=== PATIENT | male | born 1970 | race Caucasian/White ===

== ENCOUNTER 2020-12-11 22:57 | Emergency (ER) | payer SELFPAY ==
[2020-12-11 23:42] LABS: Protime INR 0.92
[2020-12-11 23:43] LABS: Basophils % 0.8 % (0-1.3); Hematocrit 48.6 % (39.6-49.0); Lymphocytes % 40.4 % (15.3-44.8); MPV 8.5 fL (7.6-11.3); RBC Red Blood Cell Count 4.94 M/uL (4.33-5.43)
[2020-12-12 00:16] LABS: Urine Blood Negative (Negative); Urine Glucose Negative (Negative); Urine Protein Negative (Negative); Urine Specific Gravity <=1.005 (1.005-1.030); Urine pH 5.5 (5.0-7.0)
[2020-12-12] MEDS ORDERED: MORPHINE 2 MG/ML SYR ONE (00:30)
[2020-12-12] MEDS ORDERED: ONDANSETRON 4 MG/2 ML VIAL ONE (00:30)
[2020-12-12 00:31] LABS: ALT/SGPT 33 U/L (12-78); AST/SGOT 21 U/L (15-37); Alkaline Phosphatase 87 U/L (45-117); BUN Blood Urea Nitrogen 8 mg/dL (7-18); Bicarbonate 25 mmol/L (21-32); Bilirubin Direct 0.1 mg/dL (0-0.2); Bilirubin Total 0.4 mg/dL (0.2-1.0); Glucose Level 98 mg/dL (74-106); Magnesium 2.1 mg/dL (1.8-2.4); NT PRO-BNP 80 pg/mL (<125); Protein, Total 7.8 g/dL (6.4-8.2); Sodium Level 146 mmol/L (136-145); Troponin (Emerg Dept Use Only) < 0.02 ng/mL (0.0-0.045)
[2020-12-12 01:07] LABS: Barbiturates NEGATIVE (NEGATIVE); Benzodiazepines NEGATIVE (NEGATIVE); Cocaine NEGATIVE (NEGATIVE); METHAMPHETAM NEGATIVE (NEGATIVE); Methadone NEGATIVE (NEGATIVE); Opiates NEGATIVE (NEGATIVE); Phencyclidine NEGATIVE (NEGATIVE); THC Cannibis NEGATIVE (NEGATIVE)
[2020-12-12] MEDS ORDERED: ASPIRIN 81 MG CHEWABLE TABLET ONE (01:43)
--- NOTE | 2020-12-12 02:03 | ER ---
Nurse's Notes [facility] Name: Ubaldo Waldron Age: 50 yrs Sex: Male : 1970 Arrival Date: 12/11/2020 Time: 23:07 Bed 15 Private MD: Diagnosis: Chest pain, unspecified;Essential (primary) hypertension Presentation: 12/11 23:08 Chief complaint: Patient states: cp that started around 1930 sharp stabbing now kc4 radiating pain. Coronavirus screen: Vaccine status: Patient reports receiving the 2nd dose of the covid vaccine. Date August 02, 2020 Patient reports receiving the 1st dose of the Covid vaccine. Date July 08, 2020 Client denies travel out of the [place] in the last 14 days. At this time, the client does not indicate any symptoms associated with coronavirus-19. 23:08 Method Of Arrival: EMS: [facility] kc4 23:57 Ebola Screen: Patient negative for fever greater than or equal to 101.5 degrees kc4 Fahrenheit, and additional compatible Ebola Virus Disease symptoms Patient denies exposure to infectious person. Patient denies travel to an Ebola-affected area in the 21 days before illness onset. No symptoms or risks identified at this time. Initial Sepsis Screen: Does the patient meet any 2 criteria? Does the patient have a suspected source of infection? No. Patient's initial sepsis screen is negative. Risk Assessment: Do you want to hurt yourself or someone else? Patient reports no desire to harm self or others. Onset of symptoms was December 12, 2020. 23:57 Acuity: FRANCESCO 3 kc4 Triage Assessment: 23:12 General: Appears in no apparent distress. slender, Behavior is calm, cooperative, kc4 appropriate for age, Smells of alcohol. 23:12 Pain: Denies pain. Complains of pain in chest Pain currently is 0 out of 10 on a pain kc4 scale. at worst was 7 out of 10 on a pain scale. level that patient reports is acceptable is 2 out of 10 on a pain scale. Quality of pain is described as sharp, stabbing, Pain began suddenly, Is lasting a few seconds. Alleviated by medications, Aggravated by Noted to be Also complains of no other associated symptoms. EENT: No deficits noted. Neuro: No deficits noted. Cardiovascular: Reports chest pain, Denies chest pain, fatigue, Heart tones S1 Capillary refill < 3 seconds Pulses are all present. Rhythm is regular Chest pain. Respiratory: No deficits noted. GI: No deficits noted. : No deficits noted. Derm: No deficits noted. Musculoskeletal: No deficits noted. Historical: - Allergies: 23:12 NKA; kc4 23:12 NKDA; kc4 - Home Meds: 23:12 None [Active]; kc4 - PMHx: 23:12 Hypertensive disorder; Congestive heart failure; kc4 - Immunization history:: Adult Immunizations not up to date, Last tetanus immunization: < 5 years ago Pneumococcal vaccine is not up to date, Flu vaccine is not up to date. Hepatitis A vaccine is not up to date Hepatitis B vaccine is not up to date. - Social history:: Smoking status: Patient reports the use of cigarette tobacco products, smokes one-half pack cigarettes per day, smokes two packs cigarettes per day. Patient uses alcohol, claims drinking about a 6 pack/day. caffeine, Patient/guardian denies using street drugs, IV drugs, over the counter diet medications. - Family history:: not pertinent. - Code Status:: Full code. Screenin/03 01:27 Abuse screen: Denies threats or abuse. Nutritional screening: No deficits noted. kc4 Difficulty chewing/swallowing? No. Tuberculosis screening: No symptoms or risk factors identified. Never had TB. Possible symptoms: None Risk factors: None. Fall Risk None identified. No fall in past 12 months (0 pts). No secondary diagnosis (0 pts). IV access (20 points). Ambulatory Aid- None/Bed Rest/Nurse Assist (0 pts). Gait- Normal/Bed Rest/Wheelchair (0 pts) Mental Status- Oriented to own ability (0 pts). Total Lopez Fall Scale indicates No Risk (0-24 pts). Assessment: 12/11 23:21 Pain: Denies pain. kc4 12/12 01:26 Also complains of no other symptoms. Reassessment: Patient appears in no apparent kc4 distress at this time. Patient and/or family updated on plan of care and expected duration. Pain level reassessed. Patient is alert, oriented x 3, equal unlabored respirations, skin warm/dry/pink. Patient denies pain at this time. Patient states feeling better. General: Appears in no apparent distress. slender, Behavior is calm, cooperative, appropriate for age, Smells of alcohol. Pain: Denies pain. Neuro: No deficits noted. Cardiovascular: No deficits noted. Respiratory: No deficits noted. GI: No deficits noted. : No deficits noted. EENT: No deficits noted. Derm: No deficits noted. Musculoskeletal: No deficits noted. Vital Signs: 12/11 23:12 BP 171 / 91; Pulse 68; Resp 18; Temp 98.7; Pulse Ox 99% on R/A; Pain 0/10; kc4 23:57 BP 171 / 97; Pulse 68; Resp 18; Temp 98.8; Pulse Ox 99% on R/A; Weight 52.16 kg; Height kc4 5 ft. 4 in. (162.56 cm); Pain 0/10; 12/12 01:29 BP 163 / 90; Pulse 60; Resp 18; Temp 98.8; Pulse Ox 95% on R/A; Pain 0/10; kc4 02:10 BP 169 / 90; Pulse 68; Resp 18; Temp 98.8; Pulse Ox 99% on R/A; Pain 0/10; kc4 12/11 23:57 Body Mass Index 19.74 (52.16 kg, 162.56 cm) kc4 Mony Coma Score: 01:27 Eye Response: spontaneous(4). Verbal Response: oriented(5). Motor Response: obeys kc4 commands(6). Total: 15. ED Course: 12/11 23:07 Patient arrived in ED. kc4 23:11 Charles Wright MD is Attending Physician. mh7 23:12 Arm band placed on right wrist. kc4 23:45 XRAY Chest (1 view) In Process Unspecified. EDMS 23:57 Kriss Jason is Primary Nurse. kc4 23:57 Troponin (emerg Dept Use Only) Sent. bs2 23:57 NT PRO-BNP Sent. bs2 23:57 Magnesium Sent. bs2 23:57 LFT's Sent. bs2 23:57 CBC with Diff Sent. bs2 23:57 Basic Metabolic Panel Sent. bs2 23:58 Liver (Hepatic) Function Sent. bs2 23:58 Basic Metabolic Panel Sent. bs2 23:58 Magnesium Sent. bs2 12/12 00:01 Triage completed. kc4 00:18 UDS Sent. bs2 01:23 Notified ED physician of a critical lab result(s). D-dimer of 641 Dr Wright notified. bb 01:27 Patient has correct armband on for positive identification. Placed in gown. Bed in low kc4 position. Call light in reach. Side rails up X 1. color television console monitor on. Pulse ox on. NIBP on. 01:27 No provider procedures requiring assistance completed. Inserted. kc4 01:29 Patient maintains SpO2 saturation greater than 95% on room air. kc4 02:02 Claus Rico MD is Referral Physician. mh7 02:10 IV discontinued, bleeding controlled, No redness/swelling at site. Pressure dressing kc4 applied. Administered Medications: 00:17 Drug: Zofran (Ondansetron) 4 mg Route: IVP; Site: right antecubital; bs2 02:14 Follow up: Response: No adverse reaction kc4 00:18 Drug: morphine 2 mg Route: IVP; Site: right antecubital; bs2 02:14 Follow up: Response: No adverse reaction kc4 01:19 CANCELLED (wrong orderr): Aspirin Chewable Tablet 324 mg PO once; 81 mg tablets x 4 mh7 Outcome: 02:12 AMA AMA form signed kc4 02:12 Condition: stable 02:13 Instructed on seeking medical advice if s/s worsen kc4 02:14 Patient left the ED. kc4 Signatures: Dispatcher [employer] EDNela Amador RN RN bb Holmes, Maurice, MD MD 7 Glo Garcia RN RN bs2 Kriss Jason kc4
--- NOTE | 2020-12-12 02:03 | EDPHYS ---
Physician Documentation [facility] Name: Ubaldo Waldron Age: 50 yrs Sex: Male : 1970 Arrival Date: 12/11/2020 Time: 23:07 Bed 15 Private MD: ED Physician Charles Wright HPI: 12/11 23:26 This 50 yrs old Male presents to ER via EMS with complaints of Chest Pain. mh7 23:26 The patient or guardian reports chest pain that is located primarily in the anterior mh7 chest wall, left. Onset: today, at 19:30. The pain radiates to the left arm. Associated signs and symptoms: Pertinent positives: nausea, shortness of breath, Pertinent negatives: abdominal pain, cough, diaphoresis, dizziness, headache, lower extremity pain, lower extremity swelling, lightheadedness, near syncope, palpitations, recent travel, syncope, vomiting. The chest pain is described as a pressure. Duration: The patient or guardian reports multiple episodes, that are intermittent, that wax and wane. Modifying factors: The symptoms are alleviated by nothing. the symptoms are aggravated by nothing. Severity of pain: At its worst the pain was moderate today, in the emergency department the pain has improved moderately. Historical: - Allergies: 23:12 NKA; kc4 23:12 NKDA; kc4 - Home Meds: 23:12 None [Active]; kc4 - PMHx: 23:12 Hypertensive disorder; Congestive heart failure; kc4 - Immunization history:: Adult Immunizations not up to date, Last tetanus immunization: < 5 years ago Pneumococcal vaccine is not up to date, Flu vaccine is not up to date. Hepatitis A vaccine is not up to date Hepatitis B vaccine is not up to date. - Social history:: Smoking status: Patient reports the use of cigarette tobacco products, smokes one-half pack cigarettes per day, smokes two packs cigarettes per day. Patient uses alcohol, claims drinking about a 6 pack/day. caffeine, Patient/guardian denies using street drugs, IV drugs, over the counter diet medications. - Family history:: not pertinent. - Code Status:: Full code. ROS: 23:26 Constitutional: Negative for fever, chills, and weight loss, Eyes: Negative for injury, mh7 pain, redness, and discharge, ENT: Negative for injury, pain, and discharge, Neck: Negative for injury, pain, and swelling, Back: Negative for injury and pain, : Negative for injury, bleeding, discharge, and swelling, MS/Extremity: Negative for injury and deformity, Skin: Negative for injury, rash, and discoloration, Neuro: Negative for headache, weakness, numbness, tingling, and seizure, Psych: Negative for depression, anxiety, suicide ideation, homicidal ideation, and hallucinations, Allergy/Immunology: Negative for hives, rash, and allergies, Endocrine: Negative for neck swelling, polydipsia, polyuria, polyphagia, and marked weight changes, Hematologic/Lymphatic: Negative for swollen nodes, abnormal bleeding, and unusual bruising. Exam: 23:26 Constitutional: This is a well developed, well nourished patient who is awake, alert, mh7 and in no acute distress. Head/Face: Normocephalic, atraumatic. Eyes: Pupils equal round and reactive to light, extra-ocular motions intact. Lids and lashes normal. Conjunctiva and sclera are non-icteric and not injected. Cornea within normal limits. Periorbital areas with no swelling, redness, or edema. Neck: Trachea midline, no thyromegaly or masses palpated, and no cervical lymphadenopathy. Supple, full range of motion without nuchal rigidity, or vertebral point tenderness. No Meningismus. Chest/axilla: Normal chest wall appearance and motion. Nontender with no deformity. No lesions are appreciated. Cardiovascular: Regular rate and rhythm with a normal S1 and S2. No gallops, murmurs, or rubs. Normal PMI, no JVD. No pulse deficits. Respiratory: Lungs have equal breath sounds bilaterally, clear to auscultation and percussion. No rales, rhonchi or wheezes noted. No increased work of breathing, no retractions or nasal flaring. Abdomen/GI: Soft, non-tender, with normal bowel sounds. No distension or tympany. No guarding or rebound. No evidence of tenderness throughout. Back: No spinal tenderness. No costovertebral tenderness. Full range of motion. Skin: Warm, dry with normal turgor. Normal color with no rashes, no lesions, and no evidence of cellulitis. MS/ Extremity: Pulses equal, no cyanosis. Neurovascular intact. Full, normal range of motion. Neuro: Awake and alert, GCS 15, oriented to person, place, time, and situation. Cranial nerves II-XII grossly intact. Motor strength 5/5 in all extremities. Sensory grossly intact. Cerebellar exam normal. Normal gait. Psych: Awake, alert, with orientation to person, place and time. Behavior, mood, and affect are within normal limits. Vital Signs: 23:12 BP 171 / 91; Pulse 68; Resp 18; Temp 98.7; Pulse Ox 99% on R/A; Pain 0/10; kc4 23:57 BP 171 / 97; Pulse 68; Resp 18; Temp 98.8; Pulse Ox 99% on R/A; Weight 52.16 kg; Height kc4 5 ft. 4 in. (162.56 cm); Pain 0/10; 12/12 01:29 BP 163 / 90; Pulse 60; Resp 18; Temp 98.8; Pulse Ox 95% on R/A; Pain 0/10; kc4 02:10 BP 169 / 90; Pulse 68; Resp 18; Temp 98.8; Pulse Ox 99% on R/A; Pain 0/10; kc4 12/11 23:57 Body Mass Index 19.74 (52.16 kg, 162.56 cm) kc4 [place] Coma Score: 01:27 Eye Response: spontaneous(4). Verbal Response: oriented(5). Motor Response: obeys kc4 commands(6). Total: 15. MDM: 02:00 Differential diagnosis: acute myocardial infarction, acute pericarditis, anxiety, mh7 coronary artery disease chest wall pain, congestive heart failure costochondritis, myocarditis, pericarditis, pleurisy, pneumonia, pneumothorax, pulmonary embolus, stable angina, unstable angina. HEART Score: History: Moderately Suspicious (1), ECG: Normal (0), Age: > 45 and < 65 years (1), Risk Factors: 1 or 2 risk factors (1), [Hypertension] Troponin: < or = 1 x Normal Limit (0), Total Score = 3. The patient was not given aspirin in the Emergency Department. Patient reports taking aspirin within the past 24 hours. Data reviewed: vital signs, nurses notes, EMS record, lab test result(s), cardiac enzymes, CBC, electrolytes, urinalysis, urine drug screen, EKG, radiologic studies, plain films. Data interpreted: Pulse oximetry: on room air is 95 %. Interpretation: normal. Counseling: I had a detailed discussion with the patient and/or guardian regarding: the historical points, exam findings, and any diagnostic results supporting the discharge/admit diagnosis, the presence of at least one elevated blood pressure reading (>120/80) during this emergency department visit, lab results, the need for further work-up and treatment in the hospital. Response to treatment: the patient's symptoms have resolved after treatment, the patient's blood pressure is in an acceptable range, mental status has returned to baseline, the patient no longer shows bradycardia, the patient is not short of breath, the patient is not tachycardic, the patient's pain is gone, the patient's temperature has normalized. Refusal of service: The patient/guardian displays adequate decision making capability and despite a detailed discussion of alternatives, benefits, risks, and consequences refuses: Admission to the hospital for further work-up and treatment, CT Scan. 02:03 Patient medically screened. [facility] 12/11 23:12 Order name: Basic Metabolic Panel [facility] 12/11 23:12 Order name: CBC with Diff [facility] 12/11 23:12 Order name: LFT's [facility] 12/11 23:12 Order name: Magnesium [facility] 12/11 23:12 Order name: NT PRO-BNP; Complete Time: 00:40 [facility] 12/11 23:12 Order name: PT-INR; Complete Time: 23:55 [facility] 12/11 23:12 Order name: Troponin (emerg Dept Use Only); Complete Time: 00:40 [facility] 12/11 23:12 Order name: UDS; Complete Time: 01:08 [facility] 12/11 23:12 Order name: Basic Metabolic Panel; Complete Time: 00:40 [facility] 12/11 23:12 Order name: CBC with Automated Diff; Complete Time: 23:55 [facility]DAK 12/11 23:12 Order name: Liver (Hepatic) Function; Complete Time: 00:40 EDMS 12/11 23:12 Order name: Magnesium; Complete Time: 00:40 EDMS 12/12 00:16 Order name: Urine Dipstick-Ancillary; Complete Time: 00:40 EDMS 12/12 00:40 Order name: D-Dimer; Complete Time: 01:24 [facility] 12/11 23:12 Order name: XRAY Chest (1 view) [facility] 12/11 23:12 Order name: EKG; Complete Time: 23:13 [facility] 12/11 23:12 Order name: Cardiac monitoring; Complete Time: 23:57 [facility] 12/11 23:12 Order name: EKG - Nurse/Tech; Complete Time: 23:57 [facility] 12/11 23:12 Order name: IV Saline Lock; Complete Time: 23:57 [facility] 12/11 23:12 Order name: Labs collected and sent; Complete Time: 23:57 [facility] 12/11 23:12 Order name: O2 Per Protocol; Complete Time: 23:57 [facility] 12/11 23:12 Order name: O2 Sat Monitoring; Complete Time: 23:57 [facility] 12/11 23:12 Order name: Urine Dipstick-Ancillary (obtain specimen); Complete Time: 00:18 [facility] 12/12 00:59 Order name: COVID-19 : Document "Date of Symptom Onset" if Symptomatic. la1 Administered Medications: 00:17 Drug: Zofran (Ondansetron) 4 mg Route: IVP; Site: right antecubital; bs2 02:14 Follow up: Response: No adverse reaction kc4 00:18 Drug: morphine 2 mg Route: IVP; Site: right antecubital; bs2 02:14 Follow up: Response: No adverse reaction kc4 01:19 CANCELLED (wrong orderr): Aspirin Chewable Tablet 324 mg PO once; 81 mg tablets x 4 mh7 Disposition Summary: 12/12/20 02:03 Left Against Medical Advice Location: Home [facility] Problem: new [facility] Symptoms: have improved [facility] Condition: Stable [facility] Diagnosis - Chest pain, unspecified [facility] - Essential (primary) hypertension [facility] Followup: [facility] - With: Private Physician - When: 1 - 2 days - Reason: Worsening of condition, Recheck today's complaints, Continuance of care, Re-evaluation by your physician Followup: [facility] - With: Claus Rico MD - When: 1 - 2 days - Reason: Worsening of condition, Recheck today's complaints Discharge Instructions: - Discharge Summary Sheet [facility] - Nonspecific Chest Pain, Adult, [id number] [facility] - Hypertension, Adult, [id number] [facility] Signatures: Dispatcher [employer] EDDelfino Mcbride FNP-C [employer]-Cla1 Charles Wright MD MD 7 Glo Garcia, RN RN bs2 Kriss Jason kc4 Corrections: (The following items were deleted from the chart) 01:19 00:58 Aspirin Chewable Tablet 324 mg PO once; 81 mg tablets x 4 ordered. la1 mh7 02:05 01:24 Chest For PE Angio+CT.RAD.BRZ ordered. EDMS EDMS
[2020-12-12 02:22] VITALS: TEMP 98.8
[2020-12-12 02:25] VITALS: BP 169/90; O2SAT 99
--- NOTE | 2020-12-12 07:55 | RAD REPORT ---
EXAM DESCRIPTION: RAD - Chest Single View - 12/11/2020 11:46 pm CLINICAL HISTORY: CHEST PAIN COMPARISON: CHEST SINGLE VIEW dated 09/07/2014; CHEST PA AND LAT 2 VIEW dated 03/15/2012; CHEST SINGLE VIEW dated 02/26/2012; CHEST PA AND LAT 2 VIEW dated 06/12/1999 FINDINGS: Lines: None. Lungs: No evidence of edema or pneumonia. Pleural: No significant pleural effusions or pneumothorax. Cardiac: The heart size is within normal limits. Bones: No acute fractures. Other: IMPRESSION: No acute cardiopulmonary disease.
--- NOTE | 2020-12-14 18:17 | EKG ---
Test Date: 2020-12-11 Test Time: 22:58:58 Candle Pourer: MEASUREMENT RESULTS: Intervals: Rate: 69 WV: 122 QRSD: 84 QT: 390 QTc: 417 [place]: P: 72 WV: 122 QRS: 82 T: 75 INTERPRETIVE STATEMENTS: Normal sinus rhythm Normal ECG Compared to ECG 09/07/2014 23:28:46 Myocardial infarct finding no longer present Electronically Signed On 12-14-20 18:06:47 CDT by Claus Rico
== END 2020-12-12 02:14 | disposition left against medical advice (07) ==
LOC: ER 22:57
DX: R07.9 Chest pain, unspecified (principal); I10 Essential (primary) hypertension; F17.210 Nicotine dependence, cigarettes, uncomplicated; Z53.29 Procedure and treatment not carried out because of patient's decision for other reasons
CPT/HCPCS: 36415; 71045; 80048; 80076; 80307; 81003; 83735; 83880; 84484; 85025; 85379; 85610; 93005; 96374; 96375; 99285; J2270; J2405

== ENCOUNTER 2020-12-14 11:50 | Inpatient (IN) | payer SELFPAY ==
[2020-12-14 12:34] LABS: Absolute Lymphocytes (CBC) 2.1 K/uL (0.7-4.9); Basophils % 0.9 % (0-1.3); Hematocrit 49.1 % (39.6-49.0); Lymphocytes % 25.2 % (15.3-44.8); MPV 8.6 fL (7.6-11.3)
[2020-12-14 12:45] LABS: Protime INR 0.97
[2020-12-14 12:51] LABS: BUN Blood Urea Nitrogen 11 mg/dL (7-18); Bicarbonate 32 mmol/L (21-32); Glucose Level 111 mg/dL (74-106); NT PRO-BNP 99 pg/mL (<125); Potassium 4.6 mmol/L (3.5-5.1); Sodium Level 141 mmol/L (136-145); Troponin (Emerg Dept Use Only) < 0.02 ng/mL (0.0-0.045)
--- NOTE | 2020-12-14 13:03 | RAD REPORT ---
EXAM DESCRIPTION: RAD - Chest Single View - 12/14/2020 12:40 pm CLINICAL HISTORY: CHEST PAIN COMPARISON: Chest Single View dated 12/11/2020; CHEST SINGLE VIEW dated 09/07/2014; CHEST PA AND LAT 2 VIEW dated 03/15/2012; CHEST SINGLE VIEW dated 02/26/2012 FINDINGS: Lines: None. Lungs: No evidence of edema or pneumonia. Pleural: No significant pleural effusions or pneumothorax. Cardiac: The heart size is within normal limits. Bones: No acute fractures. Other: IMPRESSION: No acute cardiopulmonary disease.
--- NOTE | 2020-12-14 13:18 | EDPHYS ---
Physician Documentation [facility] Name: Ubaldo aWldron Age: 50 yrs Sex: Male : 1970 Arrival Date: 12/14/2020 Time: 11:52 Bed 14 Private MD: ED Physician Alex Garcia HPI: 12/14 12:56 This 50 yrs old Male presents to ER via Wheelchair with complaints of Chest rn Pain, Numbness Of Arm. 12:56 The patient or guardian reports chest pain that is located primarily in the substernal rn area. 12:56 Onset: at an unknown time. The pain radiates to the left arm. Associated signs and rn symptoms: Pertinent negatives: abdominal pain, diaphoresis, lower extremity swelling, near syncope, palpitations. The chest pain is described as a heaviness, a pressure. Duration: The patient or guardian reports multiple episodes, that are intermittent. Modifying factors: The symptoms are alleviated by nothing. the symptoms are aggravated by exertion. Severity of pain: At its worst the pain was moderate in the emergency department the pain has improved. The patient has experienced similar episodes in the past. The patient has been recently seen at the [facility] Emergency Department. Patient states seen here recently for chest pain as he has been having increased episodes of chest pain over the last few weeks. Patient has congestive heart failure. States compliant with medication. Is still active smoker. Does not feel ill. Patient reports 10 to 20 minutes of chest pain that is worse with exertion. No trauma. Happening more frequent and lasting longer longer. Seen here recently and left prior to work-up being complete because it was taking too long per patient. Historical: - Allergies: 12:29 NKA; tw5 - Home Meds: 12:29 None [Active]; tw5 - PMHx: 12:06 Congestive heart failure; Hypertensive disorder; sv - PSHx: 12:29 None; - Immunization history:: Adult Immunizations up to date. - Social history:: Smoking status: Patient reports the use of cigarette tobacco products, smokes one pack cigarettes per day. - Family history:: not pertinent. - Hospitalizations: : No recent hospitalization is reported. ROS: 12:56 Constitutional: Negative for fever, chills, and weight loss, Eyes: Negative for injury, rn pain, redness, and discharge, Neck: Negative for injury, pain, and swelling, Cardiovascular: Negative for palpitations, and edema, Respiratory: Negative for shortness of breath, cough, wheezing, and pleuritic chest pain, Abdomen/GI: Negative for abdominal pain, nausea, vomiting, diarrhea, and constipation, Back: Negative for injury and pain, MS/Extremity: Negative for injury and deformity, Skin: Negative for injury, rash, and discoloration, Neuro: Negative for headache, weakness, and seizure. Exam: 12:56 Constitutional: This is a well developed, well nourished patient who is awake, alert, rn and in no acute distress. Head/Face: Normocephalic, atraumatic. Eyes: Periorbital areas with no swelling, redness, or edema. Cardiovascular: Regular rate and rhythm. No pulse deficits. Respiratory: No increased work of breathing, no retractions or nasal flaring. Abdomen/GI: Soft, non-tender Skin: Warm, dry MS/ Extremity: Pulses equal, no cyanosis. Neurovascular intact. Full, normal range of motion. Equal circumference. Neuro: Awake and alert, GCS 15 12:56 ECG was reviewed by the Attending Physician. Vital Signs: 12:04 BP 183 / 106; Pulse 85; Resp 16; Temp 98.2; Pulse Ox 97% ; Weight 51.71 kg; Height 5 sv ft. 4 in. (162.56 cm); Pain 8/10; 12:24 BP 186 / 115; Pulse 78; Resp 16; Pulse Ox 96% on R/A; Height 5 ft. 4 in. (162.56 cm); tw5 Pain 8/10; 13:36 BP 168 / 95; Pulse 68; Resp 12; Pulse Ox 96% on R/A; Pain 7/10; tw5 15:15 BP 168 / 92; Pulse 52; Resp 14; Pulse Ox 97% on R/A; Pain 7/10; tw5 16:39 BP 185 / 88; Pulse 53; Resp 1; Pulse Ox 96% on R/A; Pain 7/10; tw5 22:20 BP 173 / 87; Pulse 62; Resp 18; Temp 98.6; Pulse Ox 95% ; Pain 0/10; bs2 12:24 Body Mass Index 19.57 (51.71 kg, 162.56 cm) tw5 MDM: 12:05 Patient medically screened. rn 13:15 Differential diagnosis: acute myocardial infarction, acute pericarditis, coronary rn artery disease congestive heart failure costochondritis, gastroesophageal reflux disease (GERD), pleurisy, pneumothorax, stable angina, unstable angina. The patient was given aspirin in the Emergency Department. 13:16 HEART Score: History: Moderately Suspicious (1), ECG: Normal (0), Age: > 45 and < 65 rn years (1), Risk Factors: > or = 3 Risk factors for atherosclerotic disease (2), Troponin: < or = 1 x Normal Limit (0), Total Score = 4. Data reviewed: vital signs, nurses notes, lab test result(s), EKG, radiologic studies, plain films, and as a result, I will admit patient. Data interpreted: air sampling and monitoring: rate is 78 beats/min, rhythm is normal sinus rhythm, regular, with no ectopy, Interpretation: normal rate, normal rhythm, Pulse oximetry: on room air is 96 %. Interpretation: normal. Test interpretation: by ED physician or midlevel provider: ECG, plain radiologic studies, X-ray negative for pneumothorax or acute pneumonia. Counseling: I had a detailed discussion with the patient and/or guardian regarding: the historical points, exam findings, and any diagnostic results supporting the discharge/admit diagnosis, lab results, radiology results, the need for further work-up and treatment in the hospital. Response to treatment: the patient's symptoms have markedly improved after treatment, and as a result, I will admit patient. Admission orders: after a detailed discussion of the patient's condition and case, the admit orders are written by me. 12/14 12:12 Order name: Basic Metabolic Panel rn 12/14 12:12 Order name: CBC with Diff; Complete Time: 13: rn 12/14 12:12 Order name: Magnesium rn 12/14 12:12 Order name: NT PRO-BNP; Complete Time: 13:11 rn 12/14 12:12 Order name: PT-INR; Complete Time: 13: rn 12/14 12:12 Order name: Troponin (emerg Dept Use Only); Complete Time: 13:11 rn 12/14 12:12 Order name: XRAY Chest (1 view); Complete Time: 13:11 rn 12/14 12:13 Order name: Basic Metabolic Panel; Complete Time: 13:11 EDMS 12/14 12:13 Order name: Magnesium; Complete Time: 13:11 EDMS 12/14 13:45 Order name: SARS-COV-2 RT PCR EDMS 12/14 19:12 Order name: Troponin I EDNC 12/14 19:12 Order name: T4 Free EDNC 12/14 19:12 Order name: Thyroid Stimulating Hormone EDNC 12/14 12:12 Order name: EKG; Complete Time: 12:13 rn 12/14 12:12 Order name: Cardiac monitoring; Complete Time: 12:14 rn 12/14 12:12 Order name: EKG - Nurse/Tech; Complete Time: 12:14 rn 12/14 12:12 Order name: IV Saline Lock; Complete Time: 12:29 rn 12/14 12:12 Order name: Labs collected and sent; Complete Time: 12:29 rn 12/14 12:12 Order name: O2 Per Protocol; Complete Time: 12:29 rn 12/14 12:12 Order name: O2 Sat Monitoring; Complete Time: 12:29 rn 12/14 13:35 Order name: Diet Heart Healthy; Complete Time: 13:36 kj1 12/14 15:50 Order name: CONS Physician Consult EDMS EC:56 Rate is 80 beats/min. Rhythm is regular. QRS [place] is Normal. PA interval is normal. QRS rn interval is normal. QT interval is normal. No Q waves. T waves are Normal. No ST changes noted. Clinical impression: Normal ECG. Interpreted by me. Reviewed by me. Administered Medications: 13:35 Drug: Aspirin Chewable Tablet 324 mg Route: PO; tw5 15:17 Follow up: Response: No adverse reaction tw5 13:35 Drug: Metoprolol TARTRATE 50 mg Route: PO; tw5 15:17 Follow up: Response: No adverse reaction; Blood pressure is lowered; Cardiac rhythm tw5 changed Disposition Summary: 12/14/20 13:18 Hospitalization Ordered Hospitalization Status: Observation rn Provider: Elton Oscar rn Location: Telemetry/MedSur (observation) rn Condition: Stable rn Problem: new rn Symptoms: have improved rn Bed/Room Type: Standard rn Room Assignment: 213(12/14/20 21:43) tl1 Diagnosis - Chest pain, unspecified rn - Unspecified combined systolic (congestive) and diastolic (congestive) heart failure rn Forms: - Medication Reconciliation Form rn - SBAR form rn Signatures: Dispatcher [employer] Afsaneh Oliveira, RN RN sv Alex Garcia MD MD rn Lasagna, Tonya, RN RN tl1 Maci Moralez tw5 Corrections: (The following items were deleted from the chart) 12:30 12:06 Allergies: NKA; sv tw5 12:58 12:56 Patient states seen here recently for chest pain as he has been having increased rn episodes of chest pain over the last few weeks. Patient has congestive heart failure. States compliant with medication. Is still active smoker. Does not feel ill. Patient reports 10 to 20 minutes of chest pain that is worse with exertion. No trauma. Happening more frequent and lasting longer longer.. rn 21:43 13:18 rn tl1
--- NOTE | 2020-12-14 13:18 | ER ---
Nurse's Notes [facility] Name: Ubaldo Waldron Age: 50 yrs Sex: Male : 1970 Arrival Date: 12/14/2020 Time: 11:52 Bed 14 Private MD: Diagnosis: Chest pain, unspecified;Unspecified combined systolic (congestive) and diastolic (congestive) heart failure Presentation: 12/14 12:04 Chief complaint: Patient states: was seen here and admitted for CP and left arm sv numbness but left AMA because he was ready to go home. Pt reports that the left sided CP and left arm numbness have not subsided and now he has left leg pain from the knee to the foot. Coronavirus screen: Vaccine status: Patient reports receiving the 2nd dose of the covid vaccine. Patient reports receiving the 1st dose of the Covid vaccine. Ebola Screen: No symptoms or risks identified at this time. Initial Sepsis Screen: Does the patient meet any 2 criteria? No. Patient's initial sepsis screen is negative. Does the patient have a suspected source of infection? No. Patient's initial sepsis screen is negative. Risk Assessment: Do you want to hurt yourself or someone else? Patient reports no desire to harm self or others. Onset of symptoms was December 11, 2020. 12:04 Method Of Arrival: Wheelchair sv 12:04 Acuity: FRANCESCO 2 sv Triage Assessment: 12:06 General: Appears in no apparent distress. Behavior is calm, cooperative. Neuro: Level sv of Consciousness is awake, alert, obeys commands, Gait is steady. Respiratory: Respiratory effort is even, unlabored. Historical: - Allergies: 12:29 NKA; tw5 - Home Meds: 12:29 None [Active]; tw5 - PMHx: 12:06 Congestive heart failure; Hypertensive disorder; sv - PSHx: 12:29 None; tw5 - Immunization history:: Adult Immunizations up to date. - Social history:: Smoking status: Patient reports the use of cigarette tobacco products, smokes one pack cigarettes per day. - Family history:: not pertinent. - Hospitalizations: : No recent hospitalization is reported. Screenin:24 Abuse screen: Denies threats or abuse. Denies injuries from another. Nutritional tw5 screening: No deficits noted. Tuberculosis screening: No symptoms or risk factors identified. Fall Risk None identified. Assessment: 12:24 General: Appears unkempt, Behavior is calm, cooperative, appropriate for age, Reports tw5 Patient states " the pain in my chest started about 7 AM. It is on the left side of my chest and it radiates down my arm.". Pain: Complains of pain in anterior aspect of left upper chest and left breast Pain radiates to left arm Pain currently is 8 out of 10 on a pain scale. Pain began 4 hours ago. Neuro: Level of Consciousness is awake, alert, obeys commands, Oriented to person, place, time, situation. Cardiovascular: Reports chest pain, fatigue, lightheadedness, nausea, shortness of breath, Heart tones S1 S2 present Rhythm is sinus rhythm Chest pain is described as severe. Respiratory: Airway is patent Trachea midline Respiratory effort is even, unlabored, Respiratory pattern is regular. 13:36 Reassessment: Patient appears in no apparent distress at this time. Pain: Pain tw5 currently is 7 out of 10 on a pain scale. 15:15 Reassessment: Patient appears in no apparent distress at this time. No changes from tw5 previously documented assessment. Pain: Pain currently is 7 out of 10 on a pain scale. 16:39 Reassessment: Patient appears in no apparent distress at this time. No changes from tw5 previously documented assessment. Patient and/or family updated on plan of care and expected duration. Pain level reassessed. Patient is alert, oriented x 3, equal unlabored respirations, skin warm/dry/pink. Vital Signs: 12:04 BP 183 / 106; Pulse 85; Resp 16; Temp 98.2; Pulse Ox 97% ; Weight 51.71 kg; Height 5 sv ft. 4 in. (162.56 cm); Pain 8/10; 12:24 BP 186 / 115; Pulse 78; Resp 16; Pulse Ox 96% on R/A; Height 5 ft. 4 in. (162.56 cm); tw5 Pain 8/10; 13:36 BP 168 / 95; Pulse 68; Resp 12; Pulse Ox 96% on R/A; Pain 7/10; tw5 15:15 BP 168 / 92; Pulse 52; Resp 14; Pulse Ox 97% on R/A; Pain 7/10; tw5 16:39 BP 185 / 88; Pulse 53; Resp 1; Pulse Ox 96% on R/A; Pain 7/10; tw5 22:20 BP 173 / 87; Pulse 62; Resp 18; Temp 98.6; Pulse Ox 95% ; Pain 0/10; bs2 12:24 Body Mass Index 19.57 (51.71 kg, 162.56 cm) tw5 ED Course: 11:52 Patient arrived in ED. mr 12:05 Alex Garcia MD is Attending Physician. rn 12:06 Triage completed. sv 12:06 Arm band placed on. sv 12:24 Maci Moralez is Primary Nurse. tw5 12:24 No apparent distress. Awaiting lab results. tw5 12:24 Patient has correct armband on for positive identification. Placed in gown. Bed in low tw5 position. Call light in reach. Side rails up X 1. Adult w/ patient. air sampling and monitoring on. Pulse ox on. NIBP on. Door closed. Noise minimized. Lights dimmed. Moved to private room. Warm blanket given. Verbal reassurance given. 12:24 Initial lab(s) drawn, by me, EKG done, COVID swab sent to lab. Inserted saline lock: 18 tw5 gauge 20 gauge in right antecubital area, using aseptic technique. Patient maintains SpO2 saturation greater than 95% on room air. 12:29 Basic Metabolic Panel Sent. tw5 12:29 Magnesium Sent. tw5 12:29 Basic Metabolic Panel Sent. tw5 12:29 Magnesium Sent. tw5 12:40 XRAY Chest (1 view) In Process Unspecified. EDMS 13:17 Elton Oscar is Hospitalizing Provider. rn 15:15 No apparent distress. Resting quietly. Awaiting bed assignment. tw5 15:15 Diet: Patient given a heart healthy meal tray. tw5 16:39 Diet: Patient given a heart healthy meal tray. tw5 22:21 No provider procedures requiring assistance completed. Patient admitted, IV remains in bs2 place. Administered Medications: 13:35 Drug: Aspirin Chewable Tablet 324 mg Route: PO; tw5 15:17 Follow up: Response: No adverse reaction tw5 13:35 Drug: Metoprolol TARTRATE 50 mg Route: PO; tw5 15:17 Follow up: Response: No adverse reaction; Blood pressure is lowered; Cardiac rhythm tw5 changed Outcome: 13:18 Decision to Hospitalize by Provider. rn 22:40 Admitted to Med/surg accompanied by damián via wheelchair, room 213, with chart. bs2 22:40 Condition: improved 22:40 Instructed on the need for admit. 22:41 Patient left the ED. bs2 Signatures: Dispatcher [employer] Afsaneh Oliveira, RN Mita Mahan GarciaAlex garcia MD MD rn Smith, Bridget, RN RN bs2 Maci Moralez tw5 Corrections: (The following items were deleted from the chart) 12:30 12:06 Allergies: NKA; ophelia tw5
[2020-12-14] MEDS ORDERED: ASPIRIN 81 MG CHEWABLE TABLET ONE (13:55)
[2020-12-14] MEDS ORDERED: METOPROLOL TAR 50 MG TAB ONE (13:55)
[2020-12-14] MEDS ORDERED: LABETALOL 20 MG/4ML SYRINGE IV PRN (15:52)
[2020-12-14] MEDS ORDERED: ACETAMINOPHEN 500 MG TAB PO PRN (16:16)
[2020-12-14] MEDS ORDERED: ONDANSETRON 4 MG/2 ML VIAL IV PRN (16:16)
--- NOTE | 2020-12-14 16:19 | P.HP ---
Certification for Inpatient Patient admitted to: Inpatient With expected LOS: >2 Midnights Patient will require the following post-hospital care: None Practitioner: I am a practitioner with admitting privileges, knowledge of patient current condition, hospital course, and medical plan of care. Services: Services provided to patient in accordance with Admission requirements found in Title 42 Section 412.3 of the Code of Federal Regulations <Ben Miranda - Last Filed: 12/15/20 02:22> Patient History Date of Service: 12/15/20 Reason for admission: Chest pain History of Present Illness: Patient is a 50-year-old male with a past medical history significant for CHF, nicotine dependence, hypertension who presents with complaint of chest pain located in the left chest wall onset 5 days ago. Patient reported that chest pain is located in the substernal chest area. Patient rated pain 7/10 and described pain as sharp in quality. Patient indicated that chest pain radiates to his back and neck area. Patient reports associated signs and symptoms of left finger numbness, cough and shortness of breath. Patient denies any other signs or symptoms. Symptoms are aggravated or relieved by nothing. Patient decided to present to the hospital due to worsening symptoms. Of note, patient was seen in the ER 3 days ago but left AMA. - Past Medical/Surgical History -: HTN Past Surgical History: Patient denies surgical history - Family History Sister -: Heart disease, Other (see notes) ([place] ) Mother -: Heart disease - Social History Smoking Status: Current every day smoker Smoking therapy provided: Yes Patient receptive to therapy: Yes Alcohol use: Yes CD- Drugs: No Caffeine use: Yes Place of Residence: Home <Ben Miranda Vaibhav - Last Filed: 12/15/20 02:22> Date of Service: 12/14/20 <Jamie Quach - Last Filed: 12/27/20 04:05> Allergies No Known Drug Allergies Allergy (Verified 12/14/20 17:48) Unknown Home Medications: Amlodipine [Norvasc*] 10 mg PO DAILY #30 tab 12/15/20 Losartan Potassium 50 mg PO DAILY #30 tablet 12/15/20 Review of Systems General: As per HPI Eyes: Unremarkable ENT: Unremarkable Respiratory: Cough, Shortness of Breath Cardiovascular: Chest Pain Gastrointestinal: Unremarkable Genitourinary: Unremarkable Musculoskeletal: Neck Pain, Back Pain Integumentary: Unremarkable Neurological: Numbness Lymphatics: Unremarkable <EddiashleyBen esposito Vaibhav - Last Filed: 12/15/20 02:22> Physical Examination - Physical Exam General: Alert, In no apparent distress, Oriented x3 HEENT: Atraumatic, PERRLA, Mucous membr. moist/pink, EOMI, Sclerae nonicteric Neck: Supple, 2+ carotid pulse no bruit, No LAD, Without JVD or thyroid abnormality Respiratory: Clear to auscultation bilaterally, Normal air movement Cardiovascular: Regular rate/rhythm, Normal S1 S2 Capillary refill: <2 Seconds Gastrointestinal: Normal bowel sounds, No tenderness Musculoskeletal: No tenderness Integumentary: No rashes Neurological: Normal gait, Normal speech, Normal tone, Normal affect Lymphatics: No axilla or inguinal lymphadenopathy External genitalia: Deferred Rectal: Deferred - Studies Laboratory Data (last 24 hrs) 12/14/20 12:12: PT 11.2, INR 0.97 12/14/20 12:12: WBC 8.30 D, Hgb 16.6, Hct 49.1 H, Plt Count 225 12/14/20 12:12: Sodium 141, Potassium 4.6, BUN 11, Creatinine 1.04, Glucose 111 H, Magnesium 2.0 <EddiashleyBryon espositoricci Esposito - Last Filed: 12/15/20 02:22> Assessment and Plan - Plan -- Chest pain of unclear etiology. Cardiology consulted. Will trend troponin. Telemetry to monitor for any significant arrhythmia. Echocardiogram pending. We will await further recommendation from pegger. --Nicotine dependence. Patient counseled on tobacco cessation. Refuses nicotine patch. --CKD 2. Stable. We will continue to monitor renal functions. --History of systolic or diastolic CHF. Echocardiogram pending. Emergency Dispatcher on board. Further management per pegger. --Hypertension. Poorly controlled. We will manage blood pressure with labetalol as needed. --DVT prophylaxis with subQ I have had discussion about advanced directives with the patient during this hospital admission. Addressed code status and goals of care. Spent more than 30 minutes. Case discussed withpatient and nurse. The following document was completed using voice recognition software. This can produce knitter helper errors that can at times significantly distort words and phrases. Please interpret any aspect of the note that is nonsensical in light of this fact. Discharge Plan: Home Plan to discharge in: 48 Hours - Advance Directives Does patient have a Living Will: No Does patient have a Durable POA for Healthcare: No - Code Status/Comfort Care Code Status Assessed: Yes Code Status: Full Code Comfort Measures: Palliative Care Physician Review: Patient Assessed, Agree with Above Assessment and Plan Critical Care: No <Ben Miranda - Last Filed: 12/15/20 02:22> Date of Service: 12/14/20 Agree with HPI as mentioned above Vitals: Reviewed Physical exam: Awake and alert and oriented to person place and time Cardiovascular: Regular rate and rhythm Lungs: Clear bilaterally Abdomen: Soft and nontender and nondistended Extremities: No clubbing no cyanosis no edema Neuro: No focal deficits Assessment: 1. Chest pain rule out acute coronary syndrome Plan: - Serial troponins and EKG - Appreciate Cardiology consultation - Echocardiogram and stress test if cardiology is agreeable - Anti-platelet therapy, anti coagulation, beta-ramonita, statin, and O2 as needed - IV morphine for pain - Nitro p.r.n. <Jamie Quach - Last Filed: 12/27/20 04:05>
[2020-12-14] MEDS: ENOXAPARIN 40 MG/0.4 ML SQ SCH (17:00)
[2020-12-14] MEDS ORDERED: ENOXAPARIN 40 MG/0.4 ML SQ ONE (17:27)
[2020-12-14 17:28] VITALS: BMI 19.3
[2020-12-14 19:11] LABS: Troponin I < 0.02 ng/mL (0.0-0.045)
[2020-12-14] MEDS ORDERED: INFLUENZA VACCINE (for 6+ mo) 0.5 ML DOSE IMVAC ONE (20:00)
[2020-12-14] MEDS ORDERED: HYDRALAZINE HCL 20 MG/ML VIAL IV PRN (21:52)
[2020-12-14] MEDS ORDERED: HYDRALAZINE HCL 20 MG/ML VIAL ONE (22:21)
--- NOTE | 2020-12-15 00:11 | CON ---
Date of Consultation: 12/14/[address] The patient admitted to Dr. Quach's service with chest pain on 12/14/2020. History Of Present Illness: Mr. Waldron is 50 years old. No previous cardiac history. Came in with chest pain, left arm numbness, left leg numbness, nausea but no vomiting. No diaphoresis. No shortn ess of breath. He states that his pain radiated to the left arm, but is not exertional, lasts 20 min utes. Denied PND, orthopnea, pedal edema, palpitations, or syncope. Denied any fever or chills. Fitch s had similar episodes in the past. He used to see Dr. Prater but has not seen a physician for osbaldo alvarez. Allergies: HIS ALLERGIES ARE NONE. Past Medical History: Supposed to be hypertension and congestive heart failure, but he does not know the details of that. Review of Systems: Negative. Social History: Negative. Family History: Noncontributory. Physical Examination: Vital Signs: When he came in, his blood pressure was 183/106. Otherwise, his vital signs were stabl e. He was in sinus rhythm. General: He was in no acute distress. HEENT: Negative. Neck: Supple without any bruit, lymphadenopathy, JVD, or thyromegaly. Chest: Clear to auscultation and percussion. Cardiac: Exam revealed a regular rhythm and rate. No murmurs, gallops, or rubs. Abdomen: Benign. Extremities: Revealed no clubbing, cyanosis, or edema. Diagnostic Data: Basically include a normal chest x-ray. Normal troponin, normal BNP. He was COVID negative. Impression And Plan: Atypical chest pain in a patient with history of hypertension and congestive he art failure. He is not taking any medication. He should be on beta-blockers for his hypertension. He should be on aspirin. We need to get an echocardiogram on him and get a stress test to evaluate h is heart from the coronary anatomy as well as congestive heart failure. We will make a decision afte r his stress test and echos are done on 12/15/2020. For now, I agree with beta-ramonita, aspirin and Lovenox. The patient does not appear to be in any congestive heart failure at this point. ALEX/MANISH Voice ID: [id number] Report ID: [id number]
[2020-12-15 05:47] LABS: Absolute Lymphocytes (CBC) 2.9 K/uL (0.7-4.9); Basophils % 1.3 % (0-1.3); Hematocrit 48.8 % (39.6-49.0); Lymphocytes % 36.3 % (15.3-44.8); MPV 8.8 fL (7.6-11.3); RBC Red Blood Cell Count 4.87 M/uL (4.33-5.43)
[2020-12-15 05:57] LABS: BUN Blood Urea Nitrogen 13 mg/dL (7-18); Bicarbonate 27 mmol/L (21-32); Glucose Level 102 mg/dL (74-106); HDL Cholesterol 55 mg/dL (40-60); LDL Cholesterol, Calculated 57 (<130); Potassium 3.9 mmol/L (3.5-5.1); Sodium Level 143 mmol/L (136-145)
[2020-12-15] MEDS ORDERED: REGADENOSON 0.4 MG/5 ML SYR IV ONE (07:23)
[2020-12-15] MEDS: ENOXAPARIN 40 MG/0.4 ML SQ SCH (08:04)
[2020-12-15] MEDS ORDERED: ASPIRIN 81 MG CHEWABLE TABLET PO SCH (09:00)
--- NOTE | 2020-12-15 10:37 | RAD REPORT ---
EXAM DESCRIPTION: NM - Rest Stress Cardiac Imaging - 12/15/2020 10:21 am CLINICAL HISTORY: Chest pain COMPARISON: None. TECHNIQUE: The patient was administered 10.7 mCi of Tc 99m Sestamibi prior to resting SPECT imaging of the heart. The patient was then administered 30.6 mCi of Tc 99m Sestamibi following exercise or ph armacologic stress. Multiplanar SPECT images were reviewed. FINDINGS: The end diastolic volume is 64 ml, the end systolic volume is 20 ml, and the ejection frac tion is 68 %. No stress-induced ischemic changes are identifiable. Artifacts are created by the adjacent diaphragm. No areas of scarring confirmed. IMPRESSION: No stress induced ischemia or other suspicious findings. Ventricular volumes and ejection fraction well within normal limits.
[2020-12-15 11:54] VITALS: O2SAT 96
[2020-12-15 12:42] VITALS: BP 143/84; TEMP 97.7
--- NOTE | 2020-12-15 16:46 | EKG ---
Test Date: 2020-12-14 Test Time: 12:07:07 Comb Setter: ASHLEY MEASUREMENT RESULTS: Intervals: Rate: 80 ND: 120 QRSD: 78 QT: 360 QTc: 415 [place]: P: 65 ND: 120 QRS: 77 T: 69 INTERPRETIVE STATEMENTS: Normal sinus rhythm Normal ECG Compared to ECG 12/11/2020 22:58:58 No significant changes Electronically Signed On 12-15-20 16:43:01 CDT by Claus Rico
--- NOTE | 2020-12-16 08:14 | ECHO ---
HEIGHT: 5 ft 4 in WEIGHT: 113 lb 0 oz DATE OF STUDY: 12/15/[address]: Ben Miranda 2-DIMENSIONAL: YES M.MODE: YES DOPPLER: YES COLOR FLOW: YES TDS: NO PORTABLE: NO DEFINITY: NO BUBBLE STUDY: NO DIAGNOSIS: CHEST PAIN CARDIAC HISTORY: CATHERIZATION: NO SURGERY: NO PROSTHETIC VALVE: NO PACEMAKER: NO MEASUREMENTS (cm) DIASTOLIC (NORMALS) SYSTOLIC (NORMALS) IVSd 0.8 (0.6-1.2) LA Diam 2.6 (1.9-4.0) LVEF 68% LVIDd 3.4 (3.5-5.7) LVIDs 2.2 (2.0-3.5) %FS 37% LVPWd 1.0 (0.6-1.2) Ao Diam 2.1 (2.0-3.7) 2 DIMENSIONAL ASSESSMENT: RIGHT ATRIUM: LEFT ATRIUM: RIGHT VENTRICLE: LEFT VENTRICLE: TRICUSPID VALVE: MITRAL VALVE: PULMONIC VALVE: AORTIC VALVE: PERICARDIAL EFFUSION: AORTIC ROOT: LEFT VENTRICULAR WALL MOTION: DOPPLER/COLOR FLOW: COMMENTS: NORMAL 2D ECHO WITH DOPPLER. NO WALL MOTION ABNORMALITY. NO EFFUSION. TECHNOLOGIST: SARAH LIU
--- NOTE | 2020-12-16 08:23 | TREADPHA ---
DX: CHEST PAIN Date of Study: 12/15/2020 Ht: 5' 4 " Wt: 113 lb 0 oz Consulting Physician: SADIE MEDICATIONS: LOVENOX, APRESOLINE HISTORY: 50 YEAR OLD MALE CAME IN FOR CHEST PAIN. HISTORY OF HYPERTENSION, PATIENT STATES SMOKER HALF PACK A DAY, DRINKER FOUR TO FIVE BEERS DAILY. PHYSICIAL EXAMINATION: RESTING B.P.: 164/95 RESTING H.R.: 58 RESTING EKG: SINUS BRADYCARDIA PROTOCOL: PHARMACOLOGIC EXERCISE TIME: 3:30 B.P. AT PEAK STRESS: 168/87 IMPRESSION: LEXISCAN INJECTED FOLLOWED BY CARDIOLITE INJECTED - SEE NUCLEAR MEDICINE REPORT. NO CHEST PAIN, NO SUPRAVENTRICULAR TACHYCARDIA, PREMATURE ATRIAL COMPLEXES OR PREMATURE VENTRICULAR COMPLEXES.
--- NOTE | 2020-12-27 04:08 | P.DS ---
Discharge Date: 12/15/20 Disposition: ROUTINE DISCHARGE Discharge Condition: GOOD Reason for Admission: Chest pain Consultations: Cardiology Brief History of Present Illness: Patient is a 50-year-old male with a past medical history significant for CHF, nicotine dependence, hypertension who presents with complaint of chest pain located in the left chest wall onset 5 days ago. Patient reported that chest pain is located in the substernal chest area. Patient rated pain 7/10 and described pain as sharp in quality. Patient indicated that chest pain radiates to his back and neck area. Patient reports associated signs and symptoms of left finger numbness, cough and shortness of breath. Patient denies any other signs or symptoms. Symptoms are aggravated or relieved by nothing. Patient decided to present to the hospital due to worsening symptoms. Of note, patient was seen in the ER 3 days ago but left AMA. Hospital Course: Patient's stress test was unremarkable. Echocardiogram without any abnormality. Patient is stable for discharge. Vital Signs/Physical Exam: Temp Pulse Resp BP Pulse Ox 97.7 F 62 16 143/84 H 99 12/15/20 12:00 12/15/20 12:00 12/15/20 12:00 12/15/20 12:00 12/15/20 12:00 General: Alert, In no apparent distress, Oriented x3 Laboratory Data at Discharge: WBC 8.00 K/uL (4.3-10.9) 12/15/20 05:18 Hgb 16.4 g/dL (13.6-17.9) 12/15/20 05:18 Hct 48.8 % (39.6-49.0) 12/15/20 05:18 Plt Count 206 K/uL (152-406) 12/15/20 05:18 PT 11.2 SECONDS (9.5-12.5) 12/14/20 12:12 INR 0.97 12/14/20 12:12 Sodium 143 mmol/L (136-145) 12/15/20 05:18 Potassium 3.9 mmol/L (3.5-5.1) 12/15/20 05:18 BUN 13 mg/dL (7-18) 12/15/20 05:18 Creatinine 0.87 mg/dL (0.55-1.3) 12/15/20 05:18 Glucose 102 mg/dL (74-106) 12/15/20 05:18 Phosphorus 3.2 mg/dL (2.5-4.9) 12/15/20 05:18 Magnesium 2.0 mg/dL (1.8-2.4) 12/14/20 12:12 Troponin I < 0.02 ng/mL (0.0-0.045) 12/15/20 05:18 Triglycerides 102 mg/dL (<150) 12/15/20 05:18 Cholesterol 132 mg/dL (<200) 12/15/20 05:18 HDL Cholesterol 55 mg/dL (40-60) 12/15/20 05:18 Cholesterol/HDL Ratio 2.40 12/15/20 05:18 Home Medications: Amlodipine [Norvasc*] 10 mg PO DAILY #30 tab 12/15/20 Losartan Potassium 50 mg PO DAILY #30 tablet 12/15/20 New Medications: Losartan Potassium 50 mg PO DAILY #30 tablet Amlodipine [Norvasc*] 10 mg PO DAILY #30 tab Physician Discharge Instructions: -OK TO DC IV AND DC HOME -FOLLOW-UP WITH PCP IN 1-2 WEEKS -FOLLOW-UP WITH CARDIOLOGY IN 1-2 WEEKS -PLEASE MAKE SURE ALL DIAGNOSTIC STUDIES ARE AVAILABLE AND HAVE BEEN REVIEWED WITH PATIENT PRIOR TO DISCHARGE -RETURN TO THE ER IF Symptoms worsen -CALL DR. HARMON AT [phone] IF ANY QUESTIONS REGARDING HOSPITAL STAY -PLEASE CALL THE FLOOR AT [phone] IF ANY MEDICATION OR NURSING QUESTIONS Diet: AHA Activity: Fall precautions Followup: Claus Rico MD [ACTIVE - CAN ADMIT] - NONE,NONE [Primary Care Provider] - Time spent managing pt's care (in minutes): 35
== END 2020-12-15 13:15 | disposition home or self-care (01) | DRG 313 ==
LOC: ER 11:50 → ERHOLD 15:48 → 2ND 22:05
PROVIDERS: ADMIT Hospitalist; ATTEND Hospitalist
DX: R07.89 Other chest pain (principal); I10 Essential (primary) hypertension; F17.210 Nicotine dependence, cigarettes, uncomplicated
CPT/HCPCS: 36415; 71045; 78452; 80048; 80061; 83735; 83880; 84100; 84439; 84443; 84484; 85025; 85610; 93005; 93017; 93306; 99285; A9500; J0360; J1650; J2785; U0003

== ENCOUNTER 2023-07-12 10:58 | Emergency (ER) | payer OTHER ==
--- OUTSIDE RECORDS SUMMARY | 2023-07-12 11:00 | XMS REPORT | Continuity of Care Document ---
Author Name Unknown Address [address] [facility]. [address] [place] [address] [facility] thconnect Address [address] [facility]. [address] [place] [address] Care Team Providers Care Maintenance Instructor Name Role Phone PCP, PATIENT DOES NOT HAVE A Primary Care Physic paris Unavailable Doctor Unassigned, [place] Attending Clinician U LINDA Blanco Attending Clinician Unavailable Linda Martell MD Attending Clinician [phone] LINDA MARTELL Admitting Clinician Unavailable Payers Payer Name Policy Type Policy Number Effective Date Expirati on Date Source Problems Condition Name Condition Details Condition Category Status Onset Date Resolution Date Last Treatment Date Treating Clinician Comments Source No known active problems No known active problems Disease [facility] Allergies, Adverse Reactions, Alerts Allergy Name Allergy Type Status Severity Reaction(s) Onset Date Inactive Date Treating Clinician Comments Source NO KNOWN ALLERGIE S Drug Class Active [facility] Social History Social Habit Start Date Stop Date Quantity Comments Source Gender identity [facility] Sexual orientation [facility] Exposure to SARS-CoV-2 (event) 2022-03-19 00:00:00 2022-03-29 18:40:00 Not sure [facility] Sex Assigned At 1970 00:00:00 1970 00:00:00 [facility] Smoking Status Start Date Stop Date Source Tobacco smoking consumption unknown [facility] Medications Ordered Medication Name Filled Medication Name Start Date Stop Date Current Medication? Ordering Clinician Indication Dosage Frequency Signature (SIG) Comments Components Source lisinopriL (PRINIVIL,Z ESTRIL) tablet 10 mg 03-30 00:30: 00 03-29 23:47 :00 No 10mg 10 mg, Oral, ONCE, 1 dose, On Sun03/29/22 at 1830, Routine [facility] lisinopriL 10 mg tablet 03-29 00:00: 00 Yes [id number] 10mg Take 1 tablet by mouth at bedtime. [facility] Vital Signs Vital Name Observation Time Observation Value Comments S ource Systolic blood pressure 2022-03-30 00:35:00 170 mm[Hg] [facility] Diastolic blood pressure 2022-03-30 00:35:00 97 mm[Hg] [facility] Heart rate 2022-03-30 00:35:00 67 /min [facility] Body temperature 2022-03-30 00:35:00 36.67 Leila [facility] Respiratory rate 2022-03-30 00:35:00 17 /min [facility] Oxygen saturation in Arterial blood by Pulse oximetry 2022-03-30 00:35:00 98 /min [facility] Body height 2022-03-29 23:33:00 162.6 cm [facility] Body weight 2022-03-29 23:33:00 50.803 kg [facility] BMI 2022-03-29 23:33:00 19.22 kg/m2 [facility] Procedures Procedure Date / Time Performed Performing Clinicia n Source REFERRAL- REQUEST/RESPONSE 2022-10-02 05:01:00 Doctor Unassigned, [place] [facility] EKG-12 LEAD 2022-03-29 23:53:12 Linda Martell [facility] LIPASE 2022-03-29 23:44:00 Linda Martell [facility] TROPONIN I 2022-03-29 23:44:00 Linda Martell [facility] COMP. METABOLIC PANEL (16361) 2022-03-29 23:44:00 Linda Martell [facility] CBC WITH DIFF 2022-03-29 23:44:00 Linda Martell [facility] XR CHEST 1 VW 2022-03-29 23:39:50 Linda Martell [facility] NOTICE OF PRIVACY PRACTICES 2022-03-29 23:20:45 Doctor Unassigned, [place] [facility] CONSENT/REFUSAL FOR DIAGNOSIS AND TREATMENT 2022-03-29 23:19:19 Doctor Unassigned, [place] [facility] Encounters Start Date/Time End Date/Time Encounter Type Admission Type Attending [facility] Care Department Encounter ID Source 2023-05-30 16:50:05 2023-05-30 16:50:05 Outpatient [facility] [id number] Ryland De Guzman 2023-05-02 16:09:37 2023-05-02 16:09:37 Outpatient [facility] [id number] Ryland De Guzman 2023-02-13 17:33:31 2023-02-13 17:33:31 Outpatient [facility] [id number] Ryland Daniels [place] 2023-01-23 17:18:27 2023-01-23 17:18:27 Outpatient [facility] [id number] Ryland Daniels [place] 2022-12-18 16:08:04 2022-12-18 16:08:04 Outpatient [facility] [id number] Ryland Daniels [place] 2022-12-16 12:56:25 2022-12-16 12:56:25 Outpatient [facility] [id number] Ryland Daniels [place] 2022-10-25 11:44:25 2022-10-25 11:44:25 Outpatient [facility] [id number] Ryland Daniels [place] 2022-10-02 00:00:00 2022-10-02 00:00:00 Orders Only Doctor Unassigned, [place] [facility] [id number] [facility] 2022-09-26 16:14:39 2022-09-26 16:14:39 Outpatient [facility] [id number] Ryland Daniels [place] 2022-07-05 16:30:10 2022-07-05 16:30:10 Outpatient [facility] [id number] Ryland De Guzman 2022-06-20 16:46:16 2022-06-20 16:46:16 Outpatient [facility] [id number] Ryland De Guzman 2022-06-06 16:32:36 2022-06-06 16:32:36 Outpatient [facility] [id number] Ryland De Guzman 2022-05-22 16:44:03 2022-05-22 16:44:03 Outpatient [facility] [id number] Ryland De Guzman 2022-03-29 17:35:00 2022-03-29 19:07:00 Emergency X LINDA MARTELL [facility] ERT [id number] [facility] 2022-03-29 17:35:00 2022-03-29 19:07:00 Emergency Linda Martell [facility] [id number] [facility] 2022-03-29 16:18:33 2022-03-29 16:18:33 Outpatient [facility] [id number] Ryland De Guzman Results Test Description Test Time Test Comments Results Result Co mments Source COMPREHENSIVE METABOLIC [id number] 06:55:08* Test Item Value Reference Range Interpretation Comme nts GLUCOSE (test code = 2217) 75 MG/DL 70-99 BUN (test code = 2208) 18 MG/DL 6-20 CREATININE (test code = 2214) 1.29 MG/DL 0.80-1.40 eGFR (2020 CKD-EPI) (test co de = 67844) 66 ML/MIN/1.73 >60 CALC BUN/CREAT (test code = 2235) 14 RATIO 6-28 SODIUM (test code = 2231) 136 MEQ/L 133-146 POTASSIUM (test code = 2228) 4.8 MEQ/L 3.5-5.4 CHLORIDE (test code = 2215) 96 MEQ/L 95-107 CARBON DIOXIDE (test code = 2206) 25 MEQ/L 19-31 CALCIUM (test code = 2209) 10.1 MG/DL 8.5-10.5 PROTEIN, TOTAL (test code = 9) 7.4 G/DL 6.1-8.3 ALBUMIN (test code = 2201) 4.8 G/DL 3.5-5.2 CALC GLOBULIN (test code = 2240) 2.6 G/DL 1.9-3.7 CALC A/G RATIO (test code = 223) 1.8 RATIO 1.0-2.6 BILIRUBIN, TOTAL (test code = 2206) 0.6 MG/DL <=1.2 ALKALINE PHOSPHATASE (test code = 2203) 82 U/L 40-121 AST (test code = 2217) 29 U/L 9-50 ALT (test code = 2218) 25 U/L 5-50 HEMOGLOBIN [id number] 03:29:46* Test Item Value Reference Range Interpretation Comme nts HEMOGLOBIN A1c (test code = 14686) 5.6 % 4.2-5.6 CBC W/AUTO DIFF WITH [id number] 02:47:07* Test Item Value Reference Range Interpretation Comme nts WBC (test code = 1001) 9.2 K/UL 3.5-11.0 RBC (test code = 1002) 4.72 M/UL 4.50-6.10 HEMOGLOBIN (test code = 1003) 15.6 G/DL 13.5-17.0 HEMATOCRIT (test code = 1004) 44.6 % 40.0-51.0 MCV (test code = 1005) 94.5 fL 80.0-99.0 MCH (test code = 1006) 33.1 PG 25.0-33.0 H MCHC (test code = 1007) 35.0 G/DL 31.0-36.0 RDW (test code = 1038) 12.0 % 11.5-15.0 NEUTROPHILS (test code = 1008) 58.6 % LYMPHOCYTES (test code = 1010) 28.6 % MONOCYTES (test code = 1011) 10.6 % EOSINOPHILS (test code = 1012) 1.1 % BASOPHILS (test code = 1013) 0.8 % IMMATURE GRANULOCYTES (test code = 1036) 0.3 % NUCLEATED RBCS (test code = 1065) 0.0 /100 WBC'S See_Comment [Automated message] The system which generated this result transmitted reference range: 0.0. The reference range was not used to interpret this result as normal/abnormal. PLATELET COUNT (test code = 1015) 295 K/UL 130-400 ABSOLUTE NEUTROPHILS (test code = 1066) 5.38 K/UL 1.50-7.50 ABSOLUTE LYMPHOCYTES (test code = 1067) 2.62 K/UL 1.00-4.00 ABSOLUTE MONOCYTES (test code = 1068) 0.97 K/UL 0.20-1.00 ABSOLUTE EOSINOPHILS (test code = 1040) 0.10 K/UL 0.00-0.50 ABSOLUTE BASOPHILS (test code = 1069) 0.07 K/UL 0.00-0.20 ABS IMMATURE GRANULOCYTES (test code = 1020) 0.03 K/UL 0.00-0.10 ABS NUCLEATED RBCS (test code = 21252) 0.00 K/UL 0.00-0.11 UNLESS OTHER TEJEDA INDICATED, ALL TESTING PERFORMED AT [facility] [address] [place] [address] DIRECTOR INFORMATION: DAVID MANRIQUEZ M.D. CLIA NUMBER [id number] [place]. [id number] 05:18:43* Test Item Value Reference Range Interpretation Comme nts MAGNESIUM (test code = 2226) 2.1 MG/DL 1.6-2.6 UNLESS OTHERWISE INDICATED, ALL TESTING PERFORMED AT [facility] [employer] [address] [place] [address] DIRECTOR INFORMATION: DAVID MANRIQUEZ M.D. CLIA NUMBER [id number] [place]. [id number] COMPREHENSIVE METABOLIC [id number] 05:09:34* Test Item Value Reference Range Interpretation Comme nts GLUCOSE (test code = 2217) 134 MG/DL 70-99 H BUN (test code = 2208) 12 MG/DL 6-20 CREATININE (test code = 2214) 1.38 MG/DL 0.80-1.40 eGFR (2020 CKD-EPI) (test code = 48208) 62 ML/MIN/1.73 >60 CALC BUN/CREAT (test code = 2235) 9 RATIO 6-28 SODIUM (test code = 2231) 137 MEQ/L 133-146 POTASSIUM (test code = 2228) 4.6 MEQ/L 3.5-5.4 CHLORIDE (test code = 2215) 98 MEQ/L 95-107 CARBON DIOXIDE (test code = 220) 26 MEQ/L 19-31 CALCIUM (test code = 2208) 10.0 MG/DL 8.5-10.5 PROTEIN, TOTAL (test code = 2229) 6.7 G/DL 6.1-8.3 ALBUMIN (test code = 2200) 4.5 G/DL 3.5-5.2 CALC GLOBULIN (test code = 0) 2.2 G/DL 1.9-3.7 CALC A/G RATIO (test code = 223) 2.0 RATIO 1.0-2.6 BILIRUBIN, TOTAL (test code = 7) 0.6 MG/DL See_Comment [Automated me ssage] The system which generated this result transmitted reference range: <=1.2. The reference range was not used to interpret this result as normal/abnormal. ALKALINE PHOSPHATASE (test code = 2203) 84 U/L 40-121 AST (test code = 2217) 21 U/L 9-50 ALT (test code = 2218) 18 U/L 5-50 CBC W/AUTO DIFF WITH [id number] 02:19:23* Test Item Value Reference Range Interpretation Comme nts WBC (test code = 1001) 9.4 K/UL 3.5-11.0 RBC (test code = 1002) 4.37 M/UL 4.50-6.10 L HEMOGLOBIN (test code = 1003) 14.7 G/DL 13.5-17.0 HEMATOCRIT (test code = 1004) 42.2 % 40.0-51.0 MCV (test code = 1005) 96.6 fL 80.0-99.0 MCH (test code = 1006) 33.6 PG 25.0-33.0 H MCHC (test code = 1007) 34.8 G/DL 31.0-36.0 RDW (test code = 1038) 13.3 % 11.5-15.0 NEUTROPHILS (test code = 1008) 63.3 % LYMPHOCYTES (test code = 1010) 26.8 % MONOCYTES (test code = 1011) 7.9 % EOSINOPHILS (test code = 1012) 0.9 % BASOPHILS (test code = 1013) 0.5 % IMMATURE GRANULOCYTES (test code = 1036) 0.6 % NUCLEATED RBCS (test code = 1065) 0.0 /100 WBC'S See_Comment [Automated messa ge] The system which generated this result transmitted reference range: 0.0. The reference range was not used to interpret this result as normal/abnormal. PLATELET COUNT (test code = 1015) 295 K/UL 130-400 ABSOLUTE NEUTROPHILS (test code = 1066) 5.93 K/UL 1.50-7.50 ABSOLUTE LYMPHOCYTES (test code = 1067) 2.51 K/UL 1.00-4.00 ABSOLUTE MONOCYTES (test code = 1068) 0.74 K/UL 0.20-1.00 ABSOLUTE EOSINOPHILS (test code = 1040) 0.08 K/UL 0.00-0.50 ABSOLUTE BASOPHILS (test code = 1069) 0.05 K/UL 0.00-0.20 ABS IMMATURE GRANULOCYTES (test code = 1020) 0.06 K/UL 0.00-0.10 ABS NUCLEATED RBCS (test code = 21871) 0.00 K/UL 0.00-0.11 [employer] [employer] [id number] 00:23:01* Test Item Value Reference Range Interpretation Comments ANTI-NUCLEAR ANTIBODIES (test code = 3506) NEGATIVE NEGATIVE INNA PATTERN (REPORTED TITER) (test code = 12995) SEE BELOW HOMOGENEOUS (test code = 20166) NEGATIVE TITER NEGATIVE SPECKLED (test code = 860506) NEGATIVE TITER NEGATIVE DENSE FINE SPECKLED (test code = 00312) NEGATIVE TITER NEGATIVE CENTROMERE (test code = 584908) NEGATIVE TITER NEGATIVE COARSE SPECKLED (test code = 131153) NEGATIVE TITER NEGATIVE DISCRETE NUCLEAR DOTS (test code = 715132) NEGATIVE TITER NEGATIVE NUCLEOLAR (test code = 741106) NEGATIVE TITER NEGATIVE NUCLEAR MEMBRANE (test code = 786873) NEGATIVE TITER NEGATIVE CYTO. RETICULAR (GUICHO) (test code = 273608) NEGATIVE NEGATIVE COMMENTS (test code = 345376) NONE METHOD (test code = 16857) (NOTE) TESTING PERFORME D BY [employer] IFA PLATFORM.THE METHOD INCLUDES A SCREEN THRESHOLD OF 1:80, DIGITIZED AND COMPUTER ALGORITHM-ASSISTED INTERPRETATION OF TITERS AND DIGITAL PATTERNS, AND HEp-2 CELL LINE SUBSTRATE. ADDITIONAL UNUSUAL PATTERNS WILL BE GIVEN COMMENTS.FOR MORE INFORMATION, SEE [email or web address] SJOGREN'S SS-A ANTIBODY (test code = 79855) <0.2 AI <1.0 SJOGREN'S SS-B ANTIBODY (test code = 00331) <0.2 AI <1.0 JUAREZ (Sm) ANTIBODY (test code = 96784) <0.2 AI <1.0 PROCESS TRAINER ANTIBODY (test code = 38449) <0.2 AI <1.0 SCL-70 ANTIBODY (test code = 4606) <0.2 AI <1.0 Jessie-1 ANTIBODY (test code = 4680) <0.2 AI <1.0 CENTROMERE B ANTIBODY (test code = 4630) <0.2 AI <1.0 RIBOSOMAL P ANTIBODY (test code = 68477) <0.2 AI <1.0 CHROMATIN ANTIBODY (test code = 62302) <0.2 AI <1.0 THYROID PEROXIDASE AB (test code = 63091) <9 IU/ML See_Comment EFFECTIVE 2022, NEW REFERENCE RANGE CHANGE ASSOCIATEDWITH CHANGE IN METHODOLOGY.NEW METHODOLOGY IS [employer] ELECTROCHEMILUMESCENCE IMMUNOASSAY(ECLIA). FOR MORE INFORMATION, [email or web address] [Automated message] The system which generated this result transmitted reference range: <=34. The reference range was not used to interpret this result as normal/abnormal. COMPLEMENT C3 (test code = 3509) 106 MG/DL 90-180 COMPLEMENT C4 (test code = 3510) 20 MG/DL 10-40 RHEUMATOID FACTOR, QUANT (test code = 3502) <10 IU/ML <14 dsDNA ANTIBODY (test code = 4287) <1.0 IU/ML SEE BELOW NEGATIVE . . . . . . . . . . . . . . IU/ML <=4.9 INDETERMINATE. . . . . . . . . . . . IU/ML 5.0-9.0 POSITIVE . . . . . . . . . . . . . . IU/ML >=10.0 CCP IgG (test code = 32389) <0.5 U/ML <3.0 INTERPRETIVE INFORMATION INTERPRETATION RESULT NEGATIVE <3.0 U/ML POSITIVE >=3.0 U/ML VITAMIN [id number] 06:49:09* Test Item Value Reference Range Interpretation Comme nts VITAMIN B-12 (test code = 2840) 421 PG/ML 200-950 C-REACTIVE [id number] 06:40:23* Test Item Value Reference Range Interpretation Comme nts C-REACTIVE PROTEIN (test cod e = 3513) <0.3 MG/DL <0.5 VITAMIN D, 25 [id number] 06:20:42* Test Item Value Reference Range Interpretation Comme [facility] VITAMIN D, 25 OH (test code = 4958) 40 NG/ML SEE BELOW EFFECTIVE 11/2022, PLEASE NOTE NEW METHODOLOGY IS ELECTROCHEMILUMINESCENCE BINDING ASSAY. NOTE: 25-HYDROXYVITAMIN D ASSAY INCLUDES 25-HYDROXYVITAMIN D2 AND D3. INTERPRETIVE RANGES PEDIATRIC (<17 YEARS) . . . . . . . . . . . NG/ML 20-100ADULT: INSUFFICIENT . . . . . . . . . . . . . . NG/ML <20 SUBOPTIMAL . . . . . . . . . . . . . . . NG/ML 20-29 OPTIMAL . . . . . . . . . . . . . . . . . NG/ML 30-100 URIC [id number] 06:04:29* Test Item Value Reference Range Interpretation Comme [facility] URIC ACID (test code = 2233) 4.5 MG/DL 3.7-8.0 UNLESS OTHERWISE INDICATED, ALL TESTING PERFORMED AT [facility] [address] [place] [address] DIRECTOR INFORMATION: DAVID MANRIQUEZ M.D. CLIA NUMBER [id number] [facility] [place]. [id number] SEDIMENTATION [id number] 05:04:31* Test Item Value Reference Range Interpretation Comme nts SEDIMENTATION RATE (test cod e = 1017) 2 MM/HOUR 0-15 TROPONIN [id number] 00:15:45* Test Item Value Reference Range Interpretation Comments TROPONIN I (test code = 0999177102) 0.005 ng/mL See_Comment [Automated message] The system which generated this result transmitted reference range: <=0.034. The reference range was not used to interpret this result as normal/abnormal. ROBERTO CARLOS (test code = ROBERTO CARLOS) Reference (Normal) Range (defined by the 99th percentile reference limit): <= 0.034 ng/mL Note: Cardiac troponin begins to rise 3-4 hours after the onset of ischemia. Repeat in 4-6 hours if the sample was drawn within 3-4 hours of the onset of the symptom and found normal. Diagnosis of myocardial injury is made with acute changes in cTn concentrations with at least one serial sample above the 99th percentile upper reference limit (URL), taken together with the patient's clinical presentation. Biotin has been reported to cause a negative bias, interpret results relative to patient's use of biotin. Lab Interpretation (test code = 65714-3) [facility] (56126[facility]2022-[facility]-30 00:07:03* Test Item Value Reference Range Interpretation Comme nts NA (test code = 0536339058) 133 mmol/L 135-145 L K (test code = 8049536442) 4.2 mmol/L 3.5-5.0 CL (test code = 6152027045) 100 mmol/L 98-108 CO2 TOTAL (test code = 9171987034) 26 mmol/L 23-31 AGAP (test code = 5654405385) 2-16 BUN (test code = 0446066425) 10 mg/dL 7-23 GLUCOSE (test code = 3554549339) 96 mg/dL 70-110 CREATININE (test code = 0325921314) 0.77 mg/dL 0.60-1.25 TOTAL BILI (test code = 1674989650) 1.0 mg/dL 0.1-1.1 CALCIUM (test code = 0288261752) 9.2 mg/dL 8.6-10.6 T PROTEIN (test code = 7487320786) 7.1 g/dL 6.3-8.2 ALBUMIN (test code = 5625634628) 4.3 g/dL 3.5-5.0 ALK PHOS (test code = 4269940809) 84 U/L 34-122 ALTv (test code = 1742-6) 24 U/L 5-50 AST(SGOT) (test code = 4585140315) 31 U/L 13-40 eGFR (test code = 0375697753) mL/min/1.73m2 ROBERTO CARLOS (test code = ROBERTO CARLOS) Association of Glomerular Filtration Rate (GFR) and Staging of Kidney Disease* + --+ --+ ------+| GFR (mL/min/1.73 m2) ?| With Kidney Damage ?| ?Without Kidney Damage+ --------+ --------+ +| ?>90 ?| ?Stage one ?| ? Normal ?+ ---+ ---+ -------+| ?60-89 ?| ?Stage two ?| ? Decreased GFR ? + --+ --+ ------+| ?30-59 ?| ?Stage three ?| ? Stage three ? + --+ --+ ------+| ?15-29 ?| ?Stage four ? | ? Stage four ?+ ---+ ---+ -------+| ?<15 (or dialysis) ? ?| ?Stage five ? | ? Stage five ?+ ---+ ---+ -------+ *Each stage assumes the associated GFR level has been in effect for at least three months. ?Stages 1 to 5, with or without kidney disease, indicate chronic kidney disease. Notes: Determination of stages one and two (with eGFR >59mL/min/1.73 m2) requires estimation of kidney damage for at least three months as defined by structural or functional abnormalities of the kidney, manifested by either:Pathological abnormalities or Markers of kidney damage (including abnormalities in the composition of the blood or urine or abnormalities in imaging tests). Lab Interpretation (test code = 29784-4) [facility]:07[facility]* Test Item Value Reference Range Interpretation Comme nts LIPASE (test code = 8085745980) 107 U/L 0-220 Lab Interpretation (test cod e = 38491-5) [facility] [id number] 23:59:23* Test Item Value Reference Range Interpretation Comme nts WBC (test code = 6690-2) See_Comment [Automated [employer]] The system which generated this result transmitted reference range: 4.20 - 10.70 10*3/?L. The reference range was not used to interpret this result as normal/abnormal. RBC (test code = 789-8) See_Comment [Automated [employer]] The system which generated this result transmitted reference range: 4.26 - 5.52 10*6/?L. The reference range was not used to interpret this result as normal/abnormal. HGB (test code = 718-7) 16.2 g/dL 12.2-16.4 HCT (test code = 4544-3) 46.6 % 38.4-49.3 MCV (test code = 787-2) 94.9 fL 81.7-95.6 MCH (test code = 785-6) 33.0 pg 26.1-32.7 H MCHC (test code = 786-4) 34.8 g/dL 31.2-35.0 RDW-SD (test code = 83899-7) 41.1 fL 38.5-51.6 RDW-CV (test code = 788-0) 11.8 % 12.1-15.4 L PLT (test code = 777-3) See_Comment [Automated messa ge] The system which generated this result transmitted reference range: 150 - 328 10*3/?L. The reference range was not used to interpret this result as normal/abnormal. MPV (test code = 53265-1) 9.6 fL 9.8-13.0 L NRBC/100 WBC (test code = 5543761265) See_Comment [Automated [employer] ssage] The system which generated this result transmitted reference range: 0.0 - 10.0 /100 WBCs. The reference range was not used to interpret this result as normal/abnormal. NRBC x10^3 (test code = 1008346082) See_Comment [Automated GetOutfitteda ge] The system which generated this result transmitted reference range: 10*3/?L. The reference range was not used to interpret this result as normal/abnormal. GRAN MAT (NEUT) % (test code = 770-8) 61.9 % IMM GRAN % (test code = 9761890985) 0.30 % LYMPH % (test code = 736-9) 28.5 % MONO % (test code = 5905-5) 8.0 % EOS % (test code = 713-8) 0.6 % BASO % (test code = 706-2) 0.7 % GRAN MAT x10^3(ANC) (test code = 4160829762) 6.38 10*3/uL 1.99-6.95 IMM GRAN x10^3 (test code = 5788218593) 0.03 10*3/uL 0.00-0.06 LYMPH x10^3 (test code = 731-0) 2.94 10*3/uL 1.09-3.23 MONO x10^3 (test code = 742-7) 0.82 10*3/uL 0.36-1.02 EOS x10^3 (test code = 711-2) 0.06 10*3/uL 0.06-0.53 BASO x10^3 (test code = 704-7) 0.07 10*3/uL 0.01-0.09 Lab Interpretation (test code = 96394-0) Ab[facility]"
[2023-07-12] MEDS ORDERED: ONDANSETRON 4 MG/2 ML VIAL ONE (11:22)
[2023-07-12] MEDS ORDERED: MORPHINE 4 MG/ML SYR ONE (11:22)
[2023-07-12 11:52] LABS: Absolute Eosinophils 0.1 K/uL (0-0.5); Absolute Monocytes 0.7 K/uL (0.1-1.3); Absolute Neutrophil 6.4 K/uL (1.8-8.0); Basophils % 0.2 % (0-1.3); Hematocrit 45.8 % (39.6-49.0); Hemoglobin 15.6 g/dL (13.6-17.9); Lymphocytes % 21.5 % (15.3-44.8); MCH 32.6 pg (27.0-35.0); MCHC 34.2 g/dL (32.0-36.0); MCV 95.3 fL (80-100); MPV 7.9 fL (7.6-11.3); Monocytes % 7.9 % (3.3-12.3); Neutrophils % 69.4 % (41.7-73.7); Platelets 262 thou/uL (152-406); Red Cell Distribution Width 13.4 % (12.1-15.2)
[2023-07-12 11:58] LABS: Specific Gravity 1.016 (1.005-1.030); Sqamous Epithelial None Seen /HPF (None Seen); Urine Bacteria None Seen /HPF (<20); Urine Bilirubin NEGATIVE (Negative); Urine Blood Negative (Negative); Urine Clarity Clear (Clear); Urine Color Light-Yellow (Yellow); Urine Culture Reflex Order NOT NEEDED; Urine Glucose NEGATIVE (Negative); Urine Ketones NEGATIVE (Negative); Urine Microscopic Reflex YN ORDER UMIC; Urine Mucus Slight /HPF (None Seen); Urine Nitrite NEGATIVE (Negative); Urine Protein NEGATIVE (Negative); Urine RBC <5 /HPF (None Seen); Urine Urobilinogen Normal (Normal); Urine WBC <5 /HPF (<5)
[2023-07-12 12:06] LABS: Albumin 3.9 g/dL (3.4-5.0); Albumin/Globulin Ratio 1.1 (1.1-1.8); Anion Gap 10.2 mEq/L (5.0-15.0); Bilirubin Total 0.6 mg/dL (0.2-1.0); Globulin 3.5 g/dL (2.3-3.5); Potassium 4.2 mEq/L (3.5-5.1); Protein, Total 7.4 g/dL (6.4-8.2)
--- NOTE | 2023-07-12 12:47 | RAD REPORT ---
EXAM DESCRIPTION: US - Scrotum Testicles - 07/12/2023 12:39 pm CLINICAL HISTORY: left scrotal pain Pain and swelling COMPARISON: No comparisons FINDINGS: The right testicle 4.5 x 3.8 x 2.1 cm. No intratesticular masses or evidence of testicular torsion. The left testicle 4.0 x 3.0 x 2.2 cm. No intratesticular masses or evidence of testicular torsion. Both epididymides are normal in size and appearance. No pathologic fluid collections. IMPRESSION: No acute or worrisome abnormality detected.
--- NOTE | 2023-07-12 13:00 | RAD REPORT ---
EXAM DESCRIPTION: CTAbdomen Pelvis W Contrast - 07/12/2023 12:46 pm CLINICAL HISTORY: Abdominal pain. LLQ/left groin pain COMPARISON: No comparisons TECHNIQUE: Biphasic CT imaging of the abdomen and pelvis was performed with 100 ml non-ionic IV cont rast. All CT scans are performed using dose optimization technique as appropriate and may include automated exposure control or mA/KV adjustment according to patient size. FINDINGS: The lung bases are clear. The liver, spleen, pancreas, adrenal glands and kidneys are within normal limits. No bowel obstruction, free air, free fluid or abscess. Moderate stool is present in the rectosigmoid colon. The appendix is normal. No evidence of significant lymphadenopathy. No suspicious bony findings. IMPRESSION: No acute intra-abdominal or pelvic finding.
--- NOTE | 2023-07-12 13:16 | ER ---
Nurse's Notes [facility] Name: Ubaldo Waldron Age: 53 yrs Sex: Male : 1970 Arrival Date: 07/12/2023 Time: 10:58 Bed 15 Private MD: Diagnosis: Lower abdominal pain, unspecified Presentation: 07/11 11:30 Chief complaint: Patient states: left groin pain goes up into the abdomen, nauseated ko1 also. Coronavirus screen: At this time, the client does not indicate any symptoms associated with coronavirus-19. Ebola Screen: No symptoms or risks identified at this time. Initial Sepsis Screen: Does the patient meet any 2 criteria? No. Patient's initial sepsis screen is negative. Does the patient have a suspected source of infection? No. Patient's initial sepsis screen is negative. Risk Assessment: Do you want to hurt yourself or someone else? Patient reports no desire to harm self or others. Onset of symptoms was July 12, 2023. 11:30 Method Of Arrival: Ambulatory ko1 11:30 Acuity: FRANCESCO 3 ko1 Triage Assessment: 11:53 General: Appears in no apparent distress. uncomfortable, Behavior is calm, cooperative, ko1 appropriate for age. Pain: Complains of pain in groin, left femoral area and left inguinal area. EENT: No deficits noted. Neuro: No deficits noted. Cardiovascular: No deficits noted. Respiratory: No deficits noted. GI: Reports nausea. : No deficits noted. Derm: No deficits noted. Musculoskeletal: No deficits noted. Historical: - Allergies: 11:53 NKA; ko1 - PMHx: 11:53 Congestive heart failure; Hypertensive disorder; ko1 - Immunization history:: Adult Immunizations up to date. - Infectious Disease History:: Denies. - Social history:: Smoking status: Patient reports the use of cigarette tobacco products, smokes one pack cigarettes per day. - Family history:: not pertinent. - Hospitalizations: : No recent hospitalization is reported. Screenin:30 [facility] ED Fall Risk Assessment (Adult) History of falling in the last 3 months, ko1 including since admission No falls in past 3 months (0 pts) Confusion or Disorientation No (0 pts) Intoxicated or Sedated No (0 pts) Impaired Gait No (0 pts) Mobility Assist Device Used No (0 pt) Altered Elimination No (0 pt) Score/Fall Risk Level 0 - 2 = Low Risk Oriented to surroundings, Maintained a safe environment, Educated pt \T\ family on fall prevention, incl call for assistance when getting out of bed, Assessed \T\ reinforced patient's understanding of fall precautions. Abuse screen: Denies threats or abuse. Denies injuries from another. Nutritional screening: No deficits noted. Tuberculosis screening: No symptoms or risk factors identified. Assessment: 11:30 Reassessment: see triage note. ko1 13:45 GI: Bowel sounds present X 4 quads. Abd is soft X 4 quads. ko1 Vital Signs: 11:30 BP 139 / 82; Pulse 65; Resp 18; Temp 98; Pulse Ox 99% ; ko1 12:51 BP 145 / 76; Pulse 63; Resp 14; Pulse Ox 97% on R/A; ko1 13:44 BP 138 / 72; Pulse 60; Resp 16; Pulse Ox 99% ; ko1 ED Course: 11:01 Patient arrived in ED. mr 11:02 Alex Garcia MD is Attending Physician. rn 11:13 Krystal Portillo, AMOL is Primary Nurse. ko1 11:30 Inserted saline lock: 20 gauge in right antecubital area, using aseptic technique. ko1 Blood collected. 11:30 Patient has correct armband on for positive identification. Bed in low position. Call ko1 light in reach. Side rails up X 1. Client placed on continuous cardiac and pulse oximetry monitoring. NIBP monitoring applied. court recording monitor on. Door closed. Noise minimized. Lights dimmed. Warm blanket given. Assisted to bathroom. Assisted with urinal. 11:37 Urinalysis w/ reflexes Sent. ko1 11:37 CBC with Diff Sent. ko1 11:37 CMP Sent. ko1 11:37 Lipase Sent. ko1 11:53 Triage completed. ko1 11:53 Arm band placed on right wrist. Patient placed in an exam room, on a stretcher, on ko1 stadium attendant, on pulse oximetry, Patient notified of wait time. 12:40 US Scrotum Testicles In Process Unspecified. EDMS 12:48 CT Abd/Pelvis - IV Contrast Only In Process Unspecified. EDMS 13:15 Parish Adorno MD is Referral Physician. rn 13:44 No provider procedures requiring assistance completed. IV discontinued, intact, ko1 bleeding controlled, No redness/swelling at site. Pressure dressing applied. 13:44 Provided Education on: na. ko1 Administered Medications: 11:37 Drug: Ondansetron IVP 4 mg IVP once; over 2 minutes Route: IVP; Site: right antecubital;ko1 11:55 Follow up: Response: No adverse reaction; Nausea is decreased ko1 11:41 Drug: morphine IVP or IV 4 mg IVP once over 4 mins Route: IVP; Infused Over: 4 mins; ko1 Site: right antecubital; 11:55 Follow up: Response: No adverse reaction; Pain is decreased ko1 Medication: 11:30 VIS not applicable for this client. ko1 Outcome: 13:15 Discharge ordered by . rn 13:44 Discharged to home ambulatory, with family, ko1 13:44 Condition: stable 13:44 Discharge instructions given to patient, family, Instructed on discharge instructions, follow up and referral plans. medication usage, Demonstrated understanding of instructions, follow-up care, medications, Prescriptions given X 1, 13:45 Patient left the ED. ko1 Signatures: Dispatcher [employer] EDMita Roque, Reg Reg mr Alex Garcia MD MD rn Oliver, Kathy, RN RN ko1
--- NOTE | 2023-07-12 13:16 | EDPHYS ---
Physician Documentation [facility] Name: Ubaldo Waldron Age: 53 yrs Sex: Male : 1970 Arrival Date: 07/12/2023 Time: 10:58 Bed 15 Private MD: ED Physician Alex Garcia HPI: 07/11 13:12 This 53 yrs old Male presents to ER via Ambulatory with complaints of Abdominal Pain. rn 13:12 The patient presents with abdominal pain in the left lower quadrant. Onset: The rn symptoms/episode began/occurred just prior to arrival. The symptoms do not radiate. Associated signs and symptoms: Pertinent negatives: blood in stools, chest pain, constipation, diarrhea, fever. The symptoms are described as achy. Modifying factors: The symptoms are alleviated by nothing, the symptoms are aggravated by touching the area. Severity of pain: At its worst the pain was moderate in the emergency department the pain is unchanged. The patient has not experienced similar symptoms in the past. The patient has not recently seen a physician. Patient reports left lower quadrant and left groin pain that began prior to arrival. No trauma. No vomiting or diarrhea. No fever. No blood in stool. No scrotal masses or scrotal swelling. No scrotal tenderness.. Historical: - Allergies: 11:53 NKA; ko1 - PMHx: 11:53 Congestive heart failure; Hypertensive disorder; ko1 - Immunization history:: Adult Immunizations up to date. - Infectious Disease History:: Denies. - Social history:: Smoking status: Patient reports the use of cigarette tobacco products, smokes one pack cigarettes per day. - Family history:: not pertinent. - Hospitalizations: : No recent hospitalization is reported. ROS: 13:12 Constitutional: Negative for fever, chills, and weight loss, Cardiovascular: Negative rn for chest pain, palpitations, and edema, Respiratory: Negative for shortness of breath, cough, wheezing, and pleuritic chest pain, Abdomen/GI: Positive for left lower quadrant and inguinal pain Back: Negative for injury and pain, : Negative for injury, bleeding, discharge, and swelling, MS/Extremity: Negative for injury and deformity, Skin: Negative for injury, rash, and discoloration, Neuro: Negative for headache, weakness, numbness, tingling, and seizure, Exam: 13:12 Constitutional: This is a well developed, well nourished patient who is awake, alert, rn and in no acute distress. Cardiovascular: Regular rate and rhythm. No pulse deficits. Respiratory: No increased work of breathing, no retractions or nasal flaring. Abdomen/GI: Soft, mild left lower quadrant tenderness. Mild tenderness in left inguinal region without mass or discoloration no hernia palpated. Male : Normal genitalia with no discharge or lesions. Vital Signs: 11:30 BP 139 / 82; Pulse 65; Resp 18; Temp 98; Pulse Ox 99% ; ko1 12:51 BP 145 / 76; Pulse 63; Resp 14; Pulse Ox 97% on R/A; ko1 13:44 BP 138 / 72; Pulse 60; Resp 16; Pulse Ox 99% ; ko1 MDM: 11:02 Patient medically screened. rn 13:12 Differential diagnosis: diverticulitis, non-specific abd pain, Ureterolithiasis, rn urinary tract infection, Hernia, epididymitis. Data reviewed: vital signs, nurses notes, lab test result(s), radiologic studies, CT scan, ultrasound, and as a result, I will discharge patient. Counseling: I had a detailed discussion with the patient and/or guardian regarding the historical points, exam findings, and any diagnostic results supporting the discharge/admit diagnosis, lab results, radiology results, the need for outpatient follow up, to return to the emergency department if symptoms worsen or persist or if there are any questions or concerns that arise at home. Special discussion: I discussed with the patient/guardian in detail that at this point there is no indication for admission to the hospital. It is understood, however, that if the symptoms persist or worsen the patient needs to return immediately for re-evaluation. ED course: No acute findings in ultrasound or CT abdomen pelvis. Pain improved. Possible hernia pain. Could just be early in presentation as pain just started prior to arrival. I have personally reviewed all of the results, including but not limited to blood tests and imaging deemed necessary to safely discharge this patient at this time. All results given to and printed out for patient. I personally went over all the results with the patient and answered all questions. Patient will follow-up with PCP and or specialist as discussed. Return precautions given and understood.. 07/11 11:20 Order name: CBC with Diff; Complete Time: 13:02 rn 07/11 11:20 Order name: CMP; Complete Time: 13:02 rn 07/11 11:20 Order name: Lipase; Complete Time: 13:02 rn 07/11 11:26 Order name: Urinalysis w/ reflexes; Complete Time: 13:02 rn 07/11 11:18 Order name: CT Abd/Pelvis - IV Contrast Only; Complete Time: 13:02 rn 07/11 11:20 Order name: US Scrotum Testicles; Complete Time: 13:02 rn 07/11 11:20 Order name: IV Saline Lock; Complete Time: 11:37 rn 07/11 11:20 Order name: Labs collected and sent; Complete Time: 11:37 rn 07/11 11:20 Order name: NPO; Complete Time: 11:21 rn Administered Medications: 11:37 Drug: Ondansetron IVP 4 mg IVP once; over 2 minutes Route: IVP; Site: right antecubital;ko1 11:55 Follow up: Response: No adverse reaction; Nausea is decreased ko1 11:41 Drug: morphine IVP or IV 4 mg IVP once over 4 mins Route: IVP; Infused Over: 4 mins; ko1 Site: right antecubital; 11:55 Follow up: Response: No adverse reaction; Pain is decreased ko1 Disposition Summary: 07/12/23 13:15 Discharge Ordered Notes: Location: Home rn Problem: new rn Symptoms: have improved rn Condition: Stable rn Diagnosis - Lower abdominal pain, unspecified rn Followup: rn - With: Parish Adorno MD - When: As needed - Reason: Recheck today's complaints, Re-evaluation by your physician Discharge Instructions: - Abdominal Pain, Adult rn - Inguinal Hernia, Adult rn - Discharge Summary Sheet ko1 Forms: - Medication Reconciliation Form rn - Antibiotic morning show producer - Prescription Opioid Use rn - Patient Portal Instructions rn - Leadership Thank You Letter rn - Work release form ko1 Prescriptions: - Tramadol 50 mg Oral Tablet - take 1 tablet ORAL route every 8 hours as needed; 12 tablet; Refills: 0, rn Product Selection Permitted Signatures: Dispatcher [employer] EDAlex Mckinley MD MD rn Oliver, Kathy, RN RN ko1 Corrections: (The following items were deleted from the chart) 11:18 11:18 Abdomen Pelvis W Con+CT.RAD.BRZ ordered. EDAZ EDMS 11:20 11:20 CBC+H.LAB.BRZ ordered. EDMS EDMS 11:20 11:20 COMPREHENSIVE METABOLIC PANEL+C.LAB.BRZ ordered. EDMS EDMS 11: 11:20 LIPASE+C.LAB.BRZ ordered. EDMS EDMS
[2023-07-12 13:55] VITALS: BP 138/72; TEMP 98; O2SAT 99
== END 2023-07-12 13:45 | disposition home or self-care (01) ==
LOC: ER 10:58
DX: R10.32 Left lower quadrant pain (principal); I50.9 Heart failure, unspecified; I10 Essential (primary) hypertension; F17.210 Nicotine dependence, cigarettes, uncomplicated
CPT/HCPCS: 85025; 81001; 36415; 83690; 80053; 74177; 76870; 96375; 96374; 99285; Q9967; J2405

== ENCOUNTER 2023-08-13 21:49 | Emergency (ER) | payer OTHER ==
--- OUTSIDE RECORDS SUMMARY | 2023-08-13 21:52 | XMS REPORT | Continuity of Care Document ---
Author Name Unknown Address [address] [facility] [place]. [address] [place] [address] [facility] thconnect Address [address] [facility]. [address] [place] [address] Care Team Providers Care Auxiliary Equipment Operator Name Role Phone PCP, PATIENT DOES NOT HAVE A Primary Care Physic paris Unavailable Doctor Unassigned, [place] Attending Clinician U LINDA Blanco Attending Clinician Unavailable Linda Martell MD Attending Clinician [phone] LINDA MARTELL Admitting Clinician Unavailable Payers Payer Name Policy Type Policy Number Effective Date Expirati on Date Source Problems Condition Name Condition Details Condition Category Status Onset Date Resolution Date Last Treatment Date Treating Clinician Comments Source No known active problems No known active problems Disease [facility] Allergies, Adverse Reactions, Alerts Allergy Name Allergy Type Status Severity Reaction(s) Onset Date Inactive Date Treating Clinician Comments Source NO KNOWN ALLERGIE S Drug Class Active [facility] Social History Social Habit Start Date Stop Date Quantity Comments Source Gender identity [facility] Sexual orientation U [facility] Exposure to SARS-CoV-2 (event) 2022-03-19 00:00:00 2022-03-29 18:40:00 Not sure [facility] Sex Assigned At 1970 00:00:00 1970 00:00:00 [facility] Smoking Status Start Date Stop Date Source Tobacco smoking consumption unknown [facility] Medications Ordered Medication Name Filled Medication Name Start Date Stop Date Current Medication? Ordering Clinician Indication Dosage Frequency Signature (SIG) Comments Components Source lisinopriL (PRINIVIL,Z ESTRIL) tablet 10 mg 03-30 00:30: 00 03-29 23:47 :00 No 10mg 10 mg, Oral, ONCE, 1 dose, On Sun03/29/22 at 1830, Routine [facility] lisinopriL 10 mg tablet 03-29 00:00: 00 Yes [id number] 10mg Take 1 tablet by mouth at bedtime. [facility] Vital Signs Vital Name Observation Time Observation Value Comments S ource Systolic blood pressure 2022-03-30 00:35:00 170 mm[Hg] [facility] Diastolic blood pressure 2022-03-30 00:35:00 97 mm[Hg] [facility] Heart rate 2022-03-30 00:35:00 67 /min [facility] Body temperature 2022-03-30 00:35:00 36.67 Leila [facility] Respiratory rate 2022-03-30 00:35:00 17 /min [facility] Oxygen saturation in Arterial blood by Pulse oximetry 2022-03-30 00:35:00 98 /min [facility] Body height 2022-03-29 23:33:00 162.6 cm [facility] Body weight 2022-03-29 23:33:00 50.803 kg [facility] BMI 2022-03-29 23:33:00 19.22 kg/m2 [facility] Procedures Procedure Date / Time Performed Performing Clinicia n Source REFERRAL- REQUEST/RESPONSE 2022-10-02 05:01:00 Doctor Unassigned, [place] [facility] EKG-12 LEAD 2022-03-29 23:53:12 Linda Martell [facility] LIPASE 2022-03-29 23:44:00 Linda Martell [facility] TROPONIN I 2022-03-29 23:44:00 Linda Maretll [facility] COMP. METABOLIC PANEL ([id number]) 2022-03-29 23:44:00 Linda Martell [facility] CBC WITH DIFF 2022-03-29 23:44:00 Linda Martell [facility] XR CHEST 1 VW 2022-03-29 23:39:50 Linda Martell [facility] NOTICE OF PRIVACY PRACTICES 2022-03-29 23:20:45 Doctor Unassigned, [place] [facility] CONSENT/REFUSAL FOR DIAGNOSIS AND TREATMENT 2022-03-29 23:19:19 Doctor Unassigned, [place] [facility] Encounters Start Date/Time End Date/Time Encounter Type Admission Type Attending [facility] Care Department Encounter ID Source 2023-05-30 16:50:05 2023-05-30 16:50:05 Outpatient [facility] [id number] Ryland De Guzman 2023-05-02 16:09:37 2023-05-02 16:09:37 Outpatient [facility] [id number] Ryland De Guzman 2023-02-13 17:33:31 2023-02-13 17:33:31 Outpatient [facility] [id number] Ryland Daniels [place] 2023-01-23 17:18:27 2023-01-23 17:18:27 Outpatient [facility] [id number] Ryland Daniels [place] 2022-12-18 16:08:04 2022-12-18 16:08:04 Outpatient [facility] [id number] Ryland Daniels [place] 2022-12-16 12:56:25 2022-12-16 12:56:25 Outpatient [facility] [id number] Ryland Daniels [place] 2022-10-25 11:44:25 2022-10-25 11:44:25 Outpatient [facility] [id number] Ryland Daniels [place] 2022-10-02 00:00:00 2022-10-02 00:00:00 Orders Only Doctor Unassigned, [place] [facility] [id number] [facility] 2022-09-26 16:14:39 2022-09-26 16:14:39 Outpatient [facility] [id number] Ryland Daniels [place] 2022-07-05 16:30:10 2022-07-05 16:30:10 Outpatient [facility] [id number] Ryland De Guzman 2022-06-20 16:46:16 2022-06-20 16:46:16 Outpatient [facility] [id number] Ryland De Guzman 2022-06-06 16:32:36 2022-06-06 16:32:36 Outpatient [facility] [id number] Ryland De Guzman 2022-05-22 16:44:03 2022-05-22 16:44:03 Outpatient [facility] [id number] Ryland De Guzman 2022-03-29 17:35:00 2022-03-29 19:07:00 Emergency X LINDA MARTELL [facility] ERT [id number] [facility] 2022-03-29 17:35:00 2022-03-29 19:07:00 Emergency Linda Martell [facility] [id number] [facility] 2022-03-29 16:18:33 2022-03-29 16:18:33 Outpatient [facility] [id number] Ryland De Guzman Results Test Description Test Time Test Comments Results Result Co mments Source COMPREHENSIVE METABOLIC [id number] 06:55:08* Test Item Value Reference Range Interpretation Comme nts GLUCOSE (test code = 2217) 75 MG/DL 70-99 BUN (test code = 2208) 18 MG/DL 6-20 CREATININE (test code = 2214) 1.29 MG/DL 0.80-1.40 eGFR (2020 CKD-EPI) (test co de = 18276) 66 ML/MIN/1.73 >60 CALC BUN/CREAT (test code [...] code = 2218) 25 U/L 5-50 HEMOGLOBIN [id number] 03:29:46* Test Item Value Reference Range Interpretation Comme nts HEMOGLOBIN A1c (test code = 21295) 5.6 % 4.2-5.6 CBC W/AUTO DIFF WITH [id number] 02:47:07* Test Item Value Reference Range Interpretation [...] 0.00-0.10 ABS NUCLEATED RBCS (test code = 18333) 0.00 K/UL 0.00-0.11 UNLESS OTHER TEJEDA INDICATED, ALL TESTING PERFORMED AT [facility] [address] [place] [address] DIESEL INSTRUCTOR: DAVID MANRIQUEZ M.D. CLIA NUMBER [id number] [place]. [id number] 05:18:43* Test Item Value Reference Range Interpretation Comme nts MAGNESIUM (test code = 2226) 2.1 MG/DL 1.6-2.6 UNLESS OTHERWISE INDICATED, ALL TESTING PERFORMED AT [facility] [address] [place] [address] DIESEL INSTRUCTOR: DAVID MANRIQUEZ M.D. CLIA NUMBER [id number] [place]. [id number] COMPREHENSIVE METABOLIC [id number] 05:09:34* Test Item Value Reference Range Interpretation Comme nts GLUCOSE (test code = 2217) 134 MG/DL 70-99 H BUN (test code = 2208) 12 MG/DL 6-20 CREATININE (test code = 2214) 1.38 MG/DL 0.80-1.40 eGFR (2020 CKD-EPI) (test code = 02621) 62 ML/MIN/1.73 >60 CALC BUN/CREAT (test code [...] 18 U/L 5-50 CBC W/AUTO DIFF WITH [id number] 02:19:23* Test Item Value Reference Range Interpretation [...] 0.00-0.10 ABS NUCLEATED RBCS (test code = 24866) 0.00 K/UL 0.00-0.11 [facility]NA AUTOIMMUNE [id number] 00:23:01* Test Item Value Reference Range Interpretation Comments ANTI-NUCLEAR ANTIBODIES (test code = 3506) NEGATIVE NEGATIVE INNA PATTERN (REPORTED TITER) (test code = 06548) SEE BELOW HOMOGENEOUS (test code = 81319) NEGATIVE TITER NEGATIVE SPECKLED (test code = 947417) NEGATIVE TITER NEGATIVE DENSE FINE SPECKLED (test code = 63025) NEGATIVE TITER NEGATIVE CENTROMERE (test code = 389885) NEGATIVE TITER NEGATIVE COARSE SPECKLED (test code = 100398) NEGATIVE TITER NEGATIVE DISCRETE NUCLEAR DOTS (test code = 685553) NEGATIVE TITER NEGATIVE NUCLEOLAR (test code = 148591) NEGATIVE TITER NEGATIVE NUCLEAR MEMBRANE (test code = 355730) NEGATIVE TITER NEGATIVE CYTO. RETICULAR (GUICHO) (test code = 101248) NEGATIVE NEGATIVE COMMENTS (test code = 907456) NONE METHOD (test code = 62183) (NOTE) TESTING PERFORME D BY [employer] IFA PLATFORM.THE METHOD INCLUDES A SCREEN THRESHOLD OF 1:80, DIGITIZED AND COMPUTER ALGORITHM-ASSISTED INTERPRETATION OF TITERS AND DIGITAL PATTERNS, AND HEp-2 CELL LINE SUBSTRATE. ADDITIONAL UNUSUAL PATTERNS WILL BE GIVEN COMMENTS.FOR MORE INFORMATION, SEE [email or web address] SJOGREN'S SS-A ANTIBODY (test code = 91264) <0.2 AI <1.0 SJOGREN'S SS-B ANTIBODY (test code = 68424) <0.2 AI <1.0 JUAREZ (Sm) ANTIBODY (test code = 76504) <0.2 AI <1.0 WASHTUB WORKER HELPER ANTIBODY (test code = 25133) <0.2 AI <1.0 SCL-70 ANTIBODY (test code = 4606) <0.2 AI <1.0 Jessie-1 ANTIBODY (test code = 4680) <0.2 AI <1.0 CENTROMERE B ANTIBODY (test code = 4630) <0.2 AI <1.0 RIBOSOMAL P ANTIBODY (test code = 16221) <0.2 AI <1.0 CHROMATIN ANTIBODY (test code = 62459) <0.2 AI <1.0 THYROID PEROXIDASE AB (test code = 34960) <9 IU/ML See_Comment EFFECTIVE 2022, NEW REFERENCE RANGE CHANGE ASSOCIATEDWITH CHANGE IN METHODOLOGY.NEW METHODOLOGY IS VDP ELECTROCHEMILUMESCENCE IMMUNOASSAY(ECLIA). FOR MORE INFORMATION, [email or web address] [Automated message] The system which generated this [...] IU/ML >=10.0 CCP IgG (test code = 70891) <0.5 U/ML <3.0 INTERPRETIVE INFORMATION INTERPRETATION RESULT NEGATIVE <3.0 U/ML POSITIVE >=3.0 U/ML VITAMIN [id number] 06:49:09* Test Item Value Reference Range Interpretation Comme nts VITAMIN B-12 (test code = 2840) 421 PG/ML 200-950 C-REACTIVE [id number] 06:40:23* Test Item Value Reference Range Interpretation Comme nts C-REACTIVE PROTEIN (test cod e = 3513) <0.3 MG/DL <0.5 VITAMIN D, 25 [id number] 06:20:42* Test Item Value Reference Range Interpretation Comme [facility] VITAMIN D, 25 OH (test code = [...] . . . . NG/ML 30-100 URIC [id number] 06:04:29* Test Item Value Reference Range Interpretation Comme [facility] URIC ACID (test code = 2233) 4.5 MG/DL 3.7-8.0 UNLESS OTHERWISE INDICATED, ALL TESTING PERFORMED AT [facility] [address] [place] [address] DIESEL INSTRUCTOR: DAVID MANRIQUEZ M.D. CLIA NUMBER [id number] [facility] [place]. [id number] SEDIMENTATION [id number] 05:04:31* Test Item Value Reference Range Interpretation Comme nts SEDIMENTATION RATE (test cod e = 1017) 2 MM/HOUR 0-15 TROPONIN [id number] 00:15:45* Test Item Value Reference Range Interpretation Comments TROPONIN I (test code = 9615120736) 0.005 ng/mL See_Comment [Automated message] The system [...] of biotin. Lab Interpretation (test code = 58607-4) [facility]62845[facility]-30 00:07:03* Test Item Value Reference Range Interpretation Comme nts NA (test code = 2823431883) 133 mmol/L 135-145 L K (test code = 4528626039) 4.2 mmol/L 3.5-5.0 CL (test code = 0144071036) 100 mmol/L 98-108 CO2 TOTAL (test code = 8310415959) 26 mmol/L 23-31 AGAP (test code = 7721172209) 2-16 BUN (test code = 5294245547) 10 mg/dL 7-23 GLUCOSE (test code = 3213776335) 96 mg/dL 70-110 CREATININE (test code = 9433165147) 0.77 mg/dL 0.60-1.25 TOTAL BILI (test code = 2942505578) 1.0 mg/dL 0.1-1.1 CALCIUM (test code = 4834344214) 9.2 mg/dL 8.6-10.6 T PROTEIN (test code = 7156422100) 7.1 g/dL 6.3-8.2 ALBUMIN (test code = 8350650233) 4.3 g/dL 3.5-5.0 ALK PHOS (test code = 3535689523) 84 U/L 34-122 ALTv (test code = 1742-6) 24 U/L 5-50 AST(SGOT) (test code = 4983847453) 31 U/L 13-40 eGFR (test code = 4259470249) mL/min/1.73m2 ROBERTO CARLOS (test code = ROBERTO [...] imaging tests). Lab Interpretation (test code = 03512-5) [facility]* Test Item Value Reference Range Interpretation Comme nts LIPASE (test code = 2811960624) 107 U/L 0-220 Lab Interpretation (test cod e = 87504-6) [facility] [id number] 23:59:23* Test Item Value Reference Range Interpretation Comme nts WBC (test code = 6690-2) See_Comment [Automated [email or web address]] The system which generated this result transmitted reference range: 4.20 - 10.70 10*3/?L. The reference range was not used to interpret this result as normal/abnormal. RBC (test code = 789-8) See_Comment [Automated [employer]] The system which generated this result transmitted [...] 34.8 g/dL 31.2-35.0 RDW-SD (test code = 85557-3) 41.1 fL 38.5-51.6 RDW-CV (test code = 788-0) 11.8 % 12.1-15.4 L PLT (test code = 777-3) See_Comment [Automated messa ge] The system which generated this result transmitted reference range: 150 - 328 10*3/?L. The reference range was not used to interpret this result as normal/abnormal. MPV (test code = 12008-6) 9.6 fL 9.8-13.0 L NRBC/100 WBC (test code = 9896394642) See_Comment [Automated Bindo ssage] The system which generated this result transmitted reference range: 0.0 - 10.0 /100 WBCs. The reference range was not used to interpret this result as normal/abnormal. NRBC x10^3 (test code = 7888840525) See_Comment [Automated [employer]Sciencea ge] The system which generated this result transmitted reference range: 10*3/?L. The reference range was not used to interpret this result as normal/abnormal. GRAN MAT (NEUT) % (test code = 770-8) 61.9 % IMM GRAN % (test code = 2892237951) 0.30 % LYMPH % (test code = 736-9) 28.5 % MONO % (test code = 5905-5) 8.0 % EOS % (test code = 713-8) 0.6 % BASO % (test code = 706-2) 0.7 % GRAN MAT x10^3(ANC) (test code = 4138736987) 6.38 10*3/uL 1.99-6.95 IMM GRAN x10^3 (test code = 5310136736) 0.03 10*3/uL 0.00-0.06 LYMPH x10^3 (test code = 731-0) 2.94 10*3/uL 1.09-3.23 MONO x10^3 (test code = 742-7) 0.82 10*3/uL 0.36-1.02 EOS x10^3 (test code = 711-2) 0.06 10*3/uL 0.06-0.53 BASO x10^3 (test code = 704-7) 0.07 10*3/uL 0.01-0.09 Lab Interpretation (test code = 65375-6) Abnormal [facility]"
[2023-08-13] MEDS ORDERED: MORPHINE 4 MG/ML SYR ONE (22:54)
[2023-08-13] MEDS ORDERED: ONDANSETRON 4 MG/2 ML VIAL ONE (22:54)
[2023-08-13 23:58] LABS: Absolute Basophils 0.1 K/uL (0-0.5); Absolute Eosinophils 0.4 K/uL (0-0.5); Absolute Lymphocytes (CBC) 3.7 K/uL (0.7-4.9); Absolute Monocytes 0.8 K/uL (0.1-1.3); Absolute Neutrophil 6.3 K/uL (1.8-8.0); Eosinophils % 3.4 % (0-4.4); Hematocrit 44.2 % (39.6-49.0); Hemoglobin 15.1 g/dL (13.6-17.9); Lymphocytes % 32.4 % (15.3-44.8); MCH 32.1 pg (27.0-35.0); MCHC 34.1 g/dL (32.0-36.0); MPV 7.8 fL (7.6-11.3); Monocytes % 7.2 % (3.3-12.3); Nucleated Red Blood Cells % 0.2 % (0-0); Platelets 282 thou/uL (152-406); Red Cell Distribution Width 13.4 % (12.1-15.2)
[2023-08-14 00:11] LABS: Albumin 3.6 g/dL (3.4-5.0); Albumin/Globulin Ratio 0.9 (1.1-1.8); Anion Gap 11.8 mEq/L (5.0-15.0); Bilirubin Total 0.6 mg/dL (0.2-1.0); Globulin 3.9 g/dL (2.3-3.5); Potassium 3.8 mEq/L (3.5-5.1); Protein, Total 7.5 g/dL (6.4-8.2)
--- NOTE | 2023-08-14 01:59 | ER ---
Nurse's Notes [facility] Name: Ubaldo Waldron Age: 53 yrs Sex: Male : 1970 Arrival Date: 08/13/2023 Time: 21:49 Bed DX3 Private MD: Parish Adorno Diagnosis: Postoperative pain Presentation: 08/12 22:48 Chief complaint: Patient states: pt had hernia sx 07/31 and today has been having a lot as6 of new pain. Coronavirus screen: At this time, the client does not indicate any symptoms associated with coronavirus-19. Ebola Screen: No symptoms or risks identified at this time. Initial Sepsis Screen: Does the patient meet any 2 criteria? No. Patient's initial sepsis screen is negative. Does the patient have a suspected source of infection? No. Patient's initial sepsis screen is negative. Risk Assessment: Do you want to hurt yourself or someone else? Patient reports no desire to harm self or others. Onset of symptoms was August 13, 2023. 22:48 Method Of Arrival: Ambulatory as6 22:48 Acuity: FRANCESCO 3 as6 Triage Assessment: 22:51 General: Appears in no apparent distress. uncomfortable, Behavior is calm, cooperative. as6 Pain: Complains of pain in pelvis. Pain: Complains of pain in abdomen. Historical: - Allergies: 22:51 NKA; as6 - PMHx: 22:51 Congestive heart failure; Hypertensive disorder; as6 - PSHx: 22:51 hernia (Hypertensive disorder); as6 - Immunization history:: Adult Immunizations not up to date. - Infectious Disease History:: Denies. - Social history:: Smoking status: Patient reports the use of cigarette tobacco products, smokes one pack cigarettes per day. - Family history:: not pertinent. Screenin/04 02:05 Abuse screen: Denies threats or abuse. Denies injuries from another. Nutritional ss screening: No deficits noted. Tuberculosis screening: Never had TB. Assessment: 02:05 General: Appears in no apparent distress. comfortable, Behavior is calm, cooperative. ss Pain: Complains of pain in pelvis. Neuro: Level of Consciousness is awake, alert, obeys commands, Oriented to person, place, time, situation. Respiratory: Airway is patent Respiratory effort is even, unlabored, Respiratory pattern is regular, symmetrical. GI: Patient currently denies diarrhea, nausea, vomiting. Derm: Skin is intact, is healthy with good turgor, Skin is dry, Skin is pink, warm \T\ dry. normal. Vital Signs: 08/12 22:48 BP 123 / 76; Pulse 66; Resp 18; Temp 97.7; Pulse Ox 95% ; Weight 53.07 kg; Height 5 ft. as6 4 in. ; Pain 8/10; 22:48 Body Mass Index 20.08 (53.07 kg, 162.56 cm) as6 22:48 Pain Scale: Adult as6 ED Course: 21:53 Patient arrived in ED. gm2 21:53 Parish Adorno MD is Private Physician. gm2 22:07 Adriano Gonzales MD is Attending Physician. rt 22:51 Triage completed. as6 22:51 Arm band placed on right wrist. as6 23:00 Inserted saline lock: 20 gauge in right antecubital area, using aseptic technique. as6 Blood collected. 23:01 Lipase Sent. as6 23:01 CMP Sent. as6 23:01 CBC with Diff Sent. as6 06/04 00:48 CT Abd/Pelvis - IV Contrast Only In Process Unspecified. EDMS 01:59 Parish Adorno MD is Referral Physician. rt 02:05 Kiara Conley, AMOL is Primary Nurse. ss 02:05 No provider procedures requiring assistance completed. IV discontinued, intact, ss bleeding controlled, No redness/swelling at site. Pressure dressing applied. Administered Medications: 08/12 23:01 Drug: Ondansetron IVP 4 mg IVP once; over 2 minutes Route: IVP; Site: right antecubital;as6 08/13 02:06 Follow up: Response: No adverse reaction ss 08/12 23:01 Drug: morphine IVP or IV 4 mg IVP once over 4 mins Route: IVP; Infused Over: 4 mins; as6 Site: right antecubital; 08/13 02:06 Follow up: Response: No adverse reaction; Pain is decreased; RASS: Alert and Calm (0) Medication: 02:05 VIS not applicable for this client. ss Outcome: 01:59 Discharge ordered by MD. rt 02:05 Discharged to home ambulatory, with family, ss 02:05 Condition: good 02:05 Discharge instructions given to patient, family, Instructed on discharge instructions, follow up and referral plans. Demonstrated understanding of instructions, follow-up care, 02:06 Patient left the ED. ss Signatures: Dispatcher [employer] EDKiara Quan RN RN Solis Laguerre RN RN as6 Adriano Gonzales MD MD rt Lanette De La O 2
--- NOTE | 2023-08-14 01:59 | EDPHYS ---
Physician Documentation [facility] Name: Ubaldo Waldron Age: 53 yrs Sex: Male : 1970 Arrival Date: 08/13/2023 Time: 21:49 Bed DX3 Private MD: Parish Adorno ED Physician Adriano Gonzales HPI: 08/13 00:41 This 53 yrs old Male presents to ER via Ambulatory with complaints of Groin Pain, POST rt SURGERY PAIN. 00:41 Patient is about 2 weeks out from reportedly uncomplicated hernia repair surgery from rt Dr. Adorno. Patient was doing well postoperatively until this afternoon when he developed a bilateral groin pain. Denies nausea, vomiting, other acute complaints, symptoms are moderate in severity, aching nature, nonradiating, no other aggravating elevating factors.. Historical: - Allergies: 08/12 22:51 NKA; as6 - PMHx: 22:51 Congestive heart failure; Hypertensive disorder; as6 - PSHx: 22:51 hernia (Hypertensive disorder); as6 - Immunization history:: Adult Immunizations not up to date. - Infectious Disease History:: Denies. - Social history:: Smoking status: Patient reports the use of cigarette tobacco products, smokes one pack cigarettes per day. - Family history:: not pertinent. ROS: 08/13 00:41 Constitutional: Negative for fever, chills, and weight loss, Cardiovascular: Negative rt for chest pain, palpitations, and edema, Respiratory: Negative for shortness of breath, cough, wheezing, and pleuritic chest pain, MS/Extremity: Negative for injury and deformity, Skin: Negative for injury, rash, and discoloration, Neuro: Negative for headache, weakness, numbness, tingling, and seizure, Psych: Negative for depression, anxiety, suicide ideation, homicidal ideation, and hallucinations, Abdomen/GI: Positive for abdominal pain, Negative for vomiting, Exam: 00:41 Constitutional: This is a well developed, well nourished patient who is awake, alert, rt and in no acute distress. Head/Face: Normocephalic, atraumatic. Chest/axilla: Normal chest wall appearance and motion. Nontender with no deformity. No lesions are appreciated. Cardiovascular: Regular rate and rhythm with a normal S1 and S2. No gallops, murmurs, or rubs. Normal PMI, no JVD. No pulse deficits. Respiratory: Lungs have equal breath sounds bilaterally, clear to auscultation and percussion. No rales, rhonchi or wheezes noted. No increased work of breathing, no retractions or nasal flaring. Skin: Warm, dry with normal turgor. Normal color with no rashes, no lesions, and no evidence of cellulitis. MS/ Extremity: Pulses equal, no cyanosis. Neurovascular intact. Full, normal range of motion. Neuro: Awake and alert, GCS 15, oriented to person, place, time, and situation. Cranial nerves II-XII grossly intact. Motor strength 5/5 in all extremities. Sensory grossly intact. Cerebellar exam normal. Normal gait. 00:41 Abdomen/GI: Surgical sites appear to be well-healing, mild tenderness to the lower quadrants, no rebound, guarding, distention, Vital Signs: 08/12 22:48 BP 123 / 76; Pulse 66; Resp 18; Temp 97.7; Pulse Ox 95% ; Weight 53.07 kg; Height 5 ft. as6 4 in. ; Pain 8/10; 22:48 Body Mass Index 20.08 (53.07 kg, 162.56 cm) as6 22:48 Pain Scale: Adult as6 MDM: 22:54 Patient medically screened. rt 08/13 02:00 Differential Diagnosis Postoperative pain, operative complication, hernia, bowel rt obstruction. Data reviewed: vital signs, nurses notes, lab test result(s), radiologic studies. I considered the following discharge prescriptions or medication management in the emergency department Medications were administered in the Emergency Department. See MAR. Independent interpretation of the following test(s) in the Emergency Department CT Scan: My interpretation is No bowel obstruction seen on my interpretation of CT scan images. Care significantly affected by the following chronic conditions: Hypertension. Counseling: I had a detailed discussion with the patient and/or guardian regarding the historical points, exam findings, and any diagnostic results supporting the discharge/admit diagnosis, lab results, radiology results, the need for outpatient follow up, to return to the emergency department if symptoms worsen or persist or if there are any questions or concerns that arise at home. Response to treatment: the patient's symptoms have markedly improved after treatment. 08/12 22:54 Order name: CBC with Diff; Complete Time: 00:19 rt 08/12 22:54 Order name: CMP; Complete Time: 00:19 rt 06 22:54 Order name: Lipase; Complete Time: 00:19 rt 06 22:54 Order name: CT Abd/Pelvis - IV Contrast Only rt 08/12 22:54 Order name: IV Saline Lock; Complete Time: 23:01 rt 08/12 22:54 Order name: Labs collected and sent; Complete Time: 23:01 rt Administered Medications: 08/12 23:01 Drug: Ondansetron IVP 4 mg IVP once; over 2 minutes Route: IVP; Site: right antecubital;as6 08/13 02:06 Follow up: Response: No adverse reaction ss 08/12 23:01 Drug: morphine IVP or IV 4 mg IVP once over 4 mins Route: IVP; Infused Over: 4 mins; as6 Site: right antecubital; 08/13 02:06 Follow up: Response: No adverse reaction; Pain is decreased; RASS: Alert and Calm (0) ss Disposition Summary: 08/14/23 01:59 Discharge Ordered Notes: Location: Home rt Problem: new rt Symptoms: have improved rt Condition: Stable rt Diagnosis - Postoperative pain rt Followup: rt - With: Parish Adorno MD - When: 2 - 3 days - Reason: Discharge Instructions: - Discharge Summary Sheet rt - Laparoscopic Inguinal Hernia Repair, Adult rt Forms: - Medication Reconciliation Form rt - Antibiotic Education rt - Prescription Opioid Use rt - Patient Portal Instructions rt - Leadership Thank You Letter rt Signatures: Dispatcher [employer] Solis Myles RN RN as6 Adriano Gonzales MD MD rt Kiara Conley RN ss Corrections: (The following items were deleted from the chart) 08/12 22:55 22:55 CBC+H.LAB.BRZ ordered. EDMS EDMS 22:55 22:55 COMPREHENSIVE METABOLIC PANEL+C.LAB.BRZ ordered. EDMS EDMS 22:55 22:55 LIPASE+C.LAB.BRZ ordered. EDMS EDMS 22:55 22:55 Abdomen Pelvis W Con+CT.RAD.BRZ ordered. EDMS EDMS
[2023-08-14 02:33] VITALS: BP 123/76; TEMP 97.7; O2SAT 95
--- NOTE | 2023-08-14 10:39 | RAD REPORT ---
EXAM DESCRIPTION: CT - Abdomen Pelvis W Contrast - 08/14/2023 6:58 am CLINICAL HISTORY: Post op pain TECHNIQUE: Contiguous axial images obtained through the abdomen and pelvis following the uneventful administration of IV contrast. Coronal and sagittal reformatted images were provided. This exam was performed according to our departmental dose-optimization program, which includes autom ated exposure control, adjustment of the mA and/or kV according to patient size and/or use of iterati ve reconstruction technique. COMPARISON: July 11 FINDINGS: Lung bases: Clear Liver: Unremarkable Gallbladder and biliary system: Unremarkable Pancreas: Unremarkable Spleen: Unremarkable Adrenals: Unremarkable Kidneys: Normal renal cortical enhancement. No calculi. No hydronephrosis. GI: No obstruction. No appreciable mucosal thickening. Appendix: No findings to suggest acute appendicitis. Urinary bladder: Mildly thickened traylor of the urinary bladder which may be secondary to incomplete d istention versus cystitis. Reproductive: Unremarkable as visualized Lymph nodes: No pathologically enlarged lymph nodes. Peritoneum: No focal fluid collection. No free air. Vessels: No abdominal aortic aneurysm. Abdominal wall: Surgical changes in the left inguinal region likely sequela from prior hernia repair Air in the right inguinal canal, likely postsurgical Bones: Unremarkable IMPRESSION: 1. Mildly thickened traylor of the urinary bladder which may be secondary to incomplete distention versus cystitis. 2. Surgical changes in the left inguinal region likely sequela from prior hernia repair. Air in the right inguinal canal, likely postsurgical. Electronically signed by: Van Mueller MD 08/14/2023 01:49 AM CDT RP Due to temporary technical issues with the PACS/Fluency reporting system, reports are being signed by the in house radiologist without review as a courtesy to ensure prompt reporting. The interpreting r adiologist is fully responsible for the content of the report.
== END 2023-08-14 02:06 | disposition home or self-care (01) ==
LOC: ER 21:49
DX: G89.18 Other acute postprocedural pain (principal); Z98.890 Other specified postprocedural states
CPT/HCPCS: 85025; 36415; 83690; 80053; 74177; 96375; 96374; 99284; Q9967; J2405

== ENCOUNTER 2024-07-26 19:16 | Emergency (ER) | payer BC, OTHER ==
--- OUTSIDE RECORDS SUMMARY | 2024-07-26 19:22 | XMS REPORT | Continuity of Care Document ---
Author Name Unknown Address [address] [place] [address] Organization [facility] Address [address] [place] [address] Care Team Providers Care Cardiovascular Disease Specialist Name Role Phone PCP, PATIENT DOES NOT HAVE A Primary Care Physic paris Unavailable Doctor Unassigned, [place] Attending Clinician U LINDA Blanco Attending Clinician Unavailable Linda Martell MD Attending Clinician [phone] LINDA MARTELL Admitting Clinician Unavailable Payers Payer Name Policy Type Policy Number Effective Date Expirati on Date Source Problems Condition Name Condition Details Condition Category Status Onset Date Resolution Date Last Treatment Date Treating Clinician Comments Source No known active problems No known active problems Disease [facility] Allergies, Adverse Reactions, Alerts Allergy Name Allergy Type Status Severity Reaction(s) Onset Date Inactive Date Treating Clinician Comments Source NO KNOWN ALLERGIE S Drug Class Active [facility] Social History Social Habit Start Date Stop Date Quantity Comments Source Gender identity [facility] Sexual orientation U [facility] Exposure to SARS-CoV-2 (event) 2022-03-19 00:00:00 2022-03-29 18:40:00 Not sure [facility] Sex Assigned At 1970 00:00:00 1970 00:00:00 [facility] Smoking Status Start Date Stop Date Source Tobacco smoking consumption unknown [facility] Medications Ordered Medication Name Filled Medication Name Start Date Stop Date Current Medication? Ordering Clinician Indication Dosage Frequency Signature (SIG) Comments Components Source omeprazole 20 mg capsule,del ayed release 9-28 00:00: 00 Yes 1mg Ryland De Guzman amlodipine 10 mg tablet 0 8-31 00:00: 00 Yes mg Ryland De Guzman lisinopril 30 mg tablet 0 8-31 00:00: 00 Yes mg Ryland De Guzman ropinirole 0.25 mg tablet 8-23 00:00: 00 Yes 1mg Ryland De Guzman albuterol sulfate HFA 90 mcg/actuati on aerosol inhaler - 00:00: 00 Yes 12mcg/a ctuatio n Ryland De Guzman meclizine 25 mg tablet - 00:00: 00 Yes 1mg Ryland De Guzman omeprazole 20 mg capsule,del ayed release 09-10 00:00: 00 Yes 1mg Ryland De Guzman amlodipine 10 mg tablet 6-04 00:00: 00 Yes mg Ryland De Guzman lisinopril 30 mg tablet 6-04 00:00: 00 Yes mg Ryland De Guzman azithromyci n 250 mg tablet 3-20 00:00: 00 Yes mg Ryland De Guzman albuterol sulfate HFA 90 mcg/actuati on aerosol inhaler -20 00:00: 00 Yes 1mcg/ac tuation Ryland De Guzman prednisone 20 mg tablet 3-20 00:00: 00 Yes 2mg Ryland De Guzman Bromfed DM 2 mg-30 mg-10 mg/5 mL oral syrup -20 00:00: 00 Yes 10mg/5 mL Ryland De Guzman TAKE 10 ML BY MOUTH EVERY 6 HOURS NEEDED 3-20 00:00: 00 Yes Ryland De Guzman AZITHROMYCI N 250 MG 3-20 00:00: 00 Yes Ryland De Guzman amlodipine 10 mg tablet 3-18 00:00: 00 Yes mg Ryland De Guzman lisinopril 30 mg tablet 3-13 00:00: 00 Yes mg Ryland De Guzman TAKE 1 TABLET DAILY 0 2-21 00:00: 00 Yes Ryland De Guzman TAKE 1 TABLET DAILY. 2-10 00:00: 00 Yes 30 Ryland De Guzman TAKE 1 TABLET BY MOUTH EVERY DAY 2022-03 2-05 00:00: 00 06-11 00:00 :00 No 10 Ryland De Guzman TAKE 5 ML EVERY 4 TO 6 HOURS NEEDED. 2022-03 2-05 00:00: 00 06-11 00:00 :00 No [id number] Ryland De Guzman LISINOPRIL 30MG 2022-03 1-15 00:00: 00 Yes Ryland De Guzman TAKE 1 TABLET DAILY 2022-03 114 00:00: 00 Yes Ryland De Guzman AMLODIPINE 10MG 2022-0314 00:00: 00 Yes [id number] Ryland De Guzman TAKE 1 TABLET DAILY. 2022-03 105 00:00: 00 06-11 00:00 :00 No 10 Ryland De Guzman TAKE 5 ML BY MOUTH EVERY 4 TO 6 HOURS NEEDED FOR COUGH 2022-03 0-09 00:00: 00 Yes Ryland De Guzman TAKE 1 CAPSULE TWICE DAILY. 2022-03 0-09 00:00: 00 06-11 00:00 :00 No 20 Ryland De Guzman TAKE 1 TABLET TWICE DAILY WITH FOOD. 2022-03 0-09 00:00: 00 06-11 00:00 :00 No [id number] Ryland De Guzman TAKE 1 TABLET DAILY. 8-19 00:00: 00 06-11 00:00 :00 No 30 Ryland De Guzman TAKE 1-2 TABS EVERY 8 HOURS NEEDED 8-16 00:00: 00 06-11 00:00 :00 No 125 Ryland De Guzman TAKE 1 TABLET DAILY 718 00:00: 00 Yes Ryland De Guzman TAKE 1 TABLET BY MOUTH DAILY 18 00:00: 00 06-11 00:00 :00 No 40 Ryland De Guzman TAKE 2 TABS DAILY THE FIRST 5 DAYS,THEN 1 TAB DAILY THE LAST 5 DAYS 7-18 00:00: 00 06-11 00:00 :00 No 20 Ryland De Guzman TAKE 1 TABLET TWICE DAILY AFTER MEALS. 18 00:00: 00 06-11 00:00 :00 No 500 Ryland De Gumzan TAKE 1 TABLET BY MOUTH EVERY DAY 07-05 00:00: 00 Yes Ryland De Guzman TAKE 1 TABLET BY MOUTH DAILY 07-05 00:00: 00 06-11 00:00 :00 No 40 Ryland De Guzman TAKE 1 TABLET BY MOUTH EVERY DAY 4 00:00: 00 Yes Ryland De Guzman TAKE 1 TABLET DAILY. 06-20 00:00: 00 06-11 00:00 :00 No 40 Ryland De Guzman LISINOPRIL 20MG 4 00:00: 00 Yes Ryland De Guzman TAKE 1 TABLET DAILY. 06-06 00:00: 00 06-11 00:00 :00 No 10 Ryland De Guzman TAKE 1 TABLET DAILY. 3- 00:00: 00 06-11 00:00 :00 No 20 Ryland De Guzman lisinopriL (PRINIVIL,Z ESTRIL) tablet 10 mg 03-30 00:30: 00 03-29 23:47 :00 No 10mg 10 mg, Oral, ONCE, 1 dose, On Sun03/29/22 at 1830, Routine [facility] LISINOPRIL 10MG 03-29 00:00: 00 Yes Ryland De Gumzan lisinopriL 10 mg tablet 03-29 00:00: 00 Yes [id number] 10mg Take 1 tablet by mouth at bedtime. [facility] Immunizations Ordered Immunization Name Filled Immunization Name Date Status Comments Source Td (adult) preservative Td (adult) preservative 2016-11-15 00:00:00 Completed Ryland De Guzman Vital Signs Vital Name Observation Time Observation Value Comments S tomy Systolic blood pressure 2022-03-30 00:35:00 170 mm[Hg] [facility] Diastolic blood pressure 2022-03-30 00:35:00 97 mm[Hg] [facility] Heart rate 2022-03-30 00:35:00 67 /min [facility] Body temperature 2022-03-30 00:35:00 36.67 Leila [facility] Respiratory rate 2022-03-30 00:35:00 17 /min [facility] Oxygen saturation in Arterial blood by Pulse oximetry 2022-03-30 00:35:00 98 /min [facility] Body height 2022-03-29 23:33:00 162.6 cm [facility] Body weight 2022-03-29 23:33:00 50.803 kg [facility] BMI 2022-03-29 23:33:00 19.22 kg/m2 [facility] BP Systolic 2023-11-10 12:53:00 136 mm[Hg] Step hen F Gab BP Diastolic 2023-11-10 12:53:00 80 mm[Hg] Tapan phen F Gab Weight Measured 2023-11-10 12:53:00 119.60 pounds Ryland F Gab Height Measured 2023-11-10 12:53:00 62.00 inches Ryland F Gab Body Temperature 2023-11-10 12:53:00 97.30 degrees Ryland F Gab Heart Rate 2023-11-10 12:53:00 71.00 /min Ofelia en F Gab Respiratory Rate 2023-11-10 12:53:00 16.00 /min Ryland F Gab BP Systolic 2023-10-26 16:39:00 113 mm[Hg] Step hen F Gab BP Diastolic 2023-10-26 16:39:00 76 mm[Hg] Tapan phen F Gab Weight Measured 2023-10-26 16:39:00 116.80 pounds Ryland F Gab Height Measured 2023-10-26 16:39:00 62.00 inches Ryland F Gab Body Temperature 2023-10-26 16:39:00 97.80 degrees Ryland F Gab Heart Rate 2023-10-26 16:39:00 86.00 /min Ofelia en F Gab Respiratory Rate 2023-10-26 16:39:00 16.00 /min Ryland F Gab BP Systolic 2023-09-11 17:00:00 120 mm[Hg] Step hen F Gab BP Diastolic 2023-09-11 17:00:00 77 mm[Hg] Tapan phen F Gab Weight Measured 2023-09-11 17:00:00 115.60 pounds Ryland F Gab Height Measured 2023-09-11 17:00:00 62.00 inches Ryland F Gab Body Temperature 2023-09-11 17:00:00 98.40 degrees Ryland F Gab Heart Rate 2023-09-11 17:00:00 74.00 /min Ofelia en F Gab Respiratory Rate 2023-09-11 17:00:00 16.00 /min Ryland F Gab BP Systolic 2023-08-14 11:03:00 148 mm[Hg] Step hen F Gab BP Diastolic 2023-08-14 11:03:00 82 mm[Hg] Tapan phen F Gab Weight Measured 2023-08-14 11:03:00 118.80 pounds Ryland F Gab Height Measured 2023-08-14 11:03:00 62.00 inches Ryland F Gab Body Temperature 2023-08-14 11:03:00 98.20 degrees Ryland F Gab Heart Rate 2023-08-14 11:03:00 76.00 /min Ofelia en F Gab Respiratory Rate 2023-08-14 11:03:00 17.00 /min Ryland F Gab BP Systolic 2023-05-30 17:01:00 143 mm[Hg] Step hen F Gab BP Diastolic 2023-05-30 17:01:00 87 mm[Hg] Tapan phen F Gab Weight Measured 2023-05-30 17:01:00 117.80 pounds Ryland F Gab Height Measured 2023-05-30 17:01:00 62.00 inches Ryland F Gab Body Temperature 2023-05-30 17:01:00 98.20 degrees Ryland F Gab Heart Rate 2023-05-30 17:01:00 65.00 /min Ofelia en F Gab Respiratory Rate 2023-05-30 17:01:00 16.00 /min Ryland F Gab BP Systolic 2023-05-02 16:14:00 145 mm[Hg] Step hen F Gab BP Diastolic 2023-05-02 16:14:00 80 mm[Hg] Tapan phen F Gab Weight Measured 2023-05-02 16:14:00 118.80 pounds Ryland F Gab Height Measured 2023-05-02 16:14:00 62.00 inches Ryland F Gab Body Temperature 2023-05-02 16:14:00 98.10 degrees Ryland F Gab Heart Rate 2023-05-02 16:14:00 74.00 /min Ofelia en F Gab Respiratory Rate 2023-05-02 16:14:00 18.00 /min Ryland F Gab BP Systolic 2023-02-13 17:46:00 150 mm[Hg] Step hen F Gab BP Diastolic 2023-02-13 17:46:00 87 mm[Hg] Tapan phen F Gab Weight Measured 2023-02-13 17:46:00 117.80 pounds Ryland F Gab Height Measured 2023-02-13 17:46:00 62.00 inches Ryland F Gab Body Temperature 2023-02-13 17:46:00 98.20 degrees Ryland F Gab Heart Rate 2023-02-13 17:46:00 77.00 /min Ofelia en F Gab Respiratory Rate 2023-02-13 17:46:00 18.00 /min Ryland F Gab BP Systolic 2023-01-23 17:19:00 130 mm[Hg] Step hen F Gab BP Diastolic 2023-01-23 17:19:00 80 mm[Hg] Tapan phen F Gab Weight Measured 2023-01-23 17:19:00 115.80 pounds Ryland F Gab Height Measured 2023-01-23 17:19:00 62.00 inches Ryland F Gab Body Temperature 2023-01-23 17:19:00 97.90 degrees Ryland F Gab Heart Rate 2023-01-23 17:19:00 71.00 /min Ofelia en F Gab Respiratory Rate 2023-01-23 17:19:00 18.00 /min Ryland F Gab BP Systolic 2022-12-16 12:59:00 145 mm[Hg] Step hen F Gab BP Diastolic 2022-12-16 12:59:00 78 mm[Hg] Tapan phen F Gab Weight Measured 2022-12-16 12:59:00 114.80 pounds Ryland F Gab Height Measured 2022-12-16 12:59:00 62.00 inches Ryland F Gab Body Temperature 2022-12-16 12:59:00 97.60 degrees Ryland F Gab Heart Rate 2022-12-16 12:59:00 82.00 /min Ofelia en F Gab Respiratory Rate 2022-12-16 12:59:00 18.00 /min Ryland F Gab BP Systolic 2022-10-25 11:48:00 107 mm[Hg] Step hen F Gab BP Diastolic 2022-10-25 11:48:00 67 mm[Hg] Tapan phen F Gab Weight Measured 2022-10-25 11:48:00 110.20 pounds Ryland F Gab Height Measured 2022-10-25 11:48:00 62.00 inches Ryland F Gab Body Temperature 2022-10-25 11:48:00 98.10 degrees Ryland F Gab Heart Rate 2022-10-25 11:48:00 73.00 /min Ofelia en F Gab Respiratory Rate 2022-10-25 11:48:00 18.00 /min Ryland F Gab BP Systolic 2022-09-26 16:18:00 148 mm[Hg] Step hen F Gab BP Diastolic 2022-09-26 16:18:00 88 mm[Hg] Tapan phen F Gab Weight Measured 2022-09-26 16:18:00 113.00 pounds Ryland F Gab Height Measured 2022-09-26 16:18:00 62.00 inches Ryland F Gab Body Temperature 2022-09-26 16:18:00 98.30 degrees Ryland F Gab Heart Rate 2022-09-26 16:18:00 79.00 /min Ofelia en F Gab Respiratory Rate 2022-09-26 16:18:00 19.00 /min Ryland F Gab BP Systolic 2022-07-05 16:38:00 142 mm[Hg] Step hen F Gab BP Diastolic 2022-07-05 16:38:00 87 mm[Hg] Tapan phen F Gab Weight Measured 2022-07-05 16:38:00 115.60 pounds Ryland F Gab Height Measured 2022-07-05 16:38:00 62.00 inches Ryland F Gab Body Temperature 2022-07-05 16:38:00 98.10 degrees Ryland F Gab Heart Rate 2022-07-05 16:38:00 81.00 /min Ofelia en F Gab Respiratory Rate 2022-07-05 16:38:00 19.00 /min Ryland F Gab BP Systolic 2022-06-20 16:51:00 160 mm[Hg] Fredo De Guzman BP Diastolic 2022-06-20 16:51:00 88 mm[Hg] Tapan De Guzman Weight Measured 2022-06-20 16:51:00 117.60 pounds Ryland De Guzman Height Measured 2022-06-20 16:51:00 62.00 inches Ryland De Guzman Body Temperature 2022-06-20 16:51:00 98.60 degrees Ryland De Guzman Heart Rate 2022-06-20 16:51:00 81.00 /min Ofelia en Frances De Guzman Respiratory Rate 2022-06-20 16:51:00 24.00 /min Ryland De Guzman Procedures Procedure Date / Time Performed Performing Clinicia n Source REFERRAL- REQUEST/RESPONSE 2022-10-02 05:01:00 Doctor Unassigned, [place] [facility] EKG-12 LEAD 2022-03-29 23:53:12 Linda Martell [facility] LIPASE 2022-03-29 23:44:00 Linda Martell [facility] TROPONIN I 2022-03-29 23:44:00 Linda Martell [facility] COMP. METABOLIC PANEL ([id number]) 2022-03-29 23:44:00 Linda Martell [facility] CBC WITH DIFF 2022-03-29 23:44:00 Linda Martell [facility] XR CHEST 1 VW 2022-03-29 23:39:50 Linda Martell [facility] NOTICE OF PRIVACY PRACTICES 2022-03-29 23:20:45 Doctor Unassigned, [place] [facility] CONSENT/REFUSAL FOR DIAGNOSIS AND TREATMENT 2022-03-29 23:19:19 Doctor Unassigned, [place] [facility] Encounters Start Date/Time End Date/Time Encounter Type Admission Type Attending Clinicians Care Facility Care Department Encounter ID Source 2023-11-10 12:49:09 2023-11-10 12:49:09 Outpatient SFA [facility] [id number] Ryland De Guzman 2023-11-10 00:00:00 2023-11-10 00:00:00 Outpatient Visit [facility] [id number] Ryland De Guzman 2023-11-02 14:15:37 2023-11-02 14:15:37 Outpatient [facility] [id number] Ryland De Guzman 2023-10-26 16:28:33 2023-10-26 16:28:33 Outpatient SFA [facility] [id number] Ryland De Guzman 2023-10-26 00:00:00 2023-10-26 00:00:00 Outpatient Visit [facility] [id number] Ryland De Guzman 2023-09-11 16:59:51 2023-09-11 16:59:51 Outpatient SFA S[facility] [id number] Ryland De Guzman 2023-09-11 00:00:00 2023-09-11 00:00:00 Outpatient Visit [facility] [id number] Ryland De Guzman 2023-08-14 10:55:52 2023-08-14 10:55:52 Outpatient SFA SFA [id number] Ryland De Guzman 2023-08-14 00:00:00 2023-08-14 00:00:00 Outpatient Visit [facility] [id number] Ryland De Guzman 2023-05-30 16:50:05 2023-05-30 16:50:05 Outpatient SFA SFA [id number] Ryland De Guzman 2023-05-02 16:09:37 2023-05-02 16:09:37 Outpatient SFA SFA [id number] Ryland Daniels Gab 2023-02-13 17:33:31 2023-02-13 17:33:31 Outpatient SFA SFA [id number] Ryland De Guzman 2023-01-23 17:18:27 2023-01-23 17:18:27 Outpatient SFA SFA [id number] Ryland De Guzman 2022-12-18 16:08:04 2022-12-18 16:08:04 Outpatient SFA SFA [id number] Ryland De Guzman 2022-12-16 12:56:25 2022-12-16 12:56:25 Outpatient [facility] [id number] Ryland De Guzman 2022-10-25 11:44:25 2022-10-25 11:44:25 Outpatient [facility] [id number] Ryland De Guzman 2022-10-02 00:00:00 2022-10-02 00:00:00 Orders Only Doctor Unassigned, [place] [facility] 1..840.114 [id number] [facility] 2022-09-26 16:14:39 2022-09-26 16:14:39 Outpatient [facility] [id number] Ryland De Guzman 2022-07-05 16:30:10 2022-07-05 16:30:10 Outpatient [facility] [id number] Ryland Daniels Gab 2022-06-20 16:46:16 2022-06-20 16:46:16 Outpatient [facility] [id number] Ryland Daniels Gab 2022-06-06 16:32:36 2022-06-06 16:32:36 Outpatient [facility] [id number] Ryland De Guzman 2022-05-22 16:44:03 2022-05-22 16:44:03 Outpatient [facility] [id number] Ryland De Guzman 2022-03-29 17:35:00 2022-03-29 19:07:00 Emergency X LINDA MARTELL [facility] ERT [id number] [facility] 2022-03-29 17:35:00 2022-03-29 19:07:00 Emergency Linda Martell [facility] 1..840.114 [id number] [facility] 2022-03-29 16:18:33 2022-03-29 16:18:33 Outpatient [facility] [id number] Ryland F Gab Results Test Description Test Time Test Comments Results Result Co mments Source CBC W/AUTO DIFF WITH [id number] 01:35:28* Test Item Value Reference Range Interpretation Comme nts WBC (test code = 1001) 7.7 K/UL 3.5-11.0 RBC (test code = 1002) 4.68 M/UL 4.50-6.10 HEMOGLOBIN (test code = 1003) 14.9 G/DL 13.5-17.0 HEMATOCRIT (test code = 1004) 43.8 % 40.0-51.0 MCV (test code = 1005) 93.6 fL 80.0-99.0 MCH (test code = 1006) 31.8 PG 25.0-33.0 MCHC (test code = 1007) 34.0 G/DL 31.0-36.0 RDW (test code = 1038) 12.8 % 11.5-15.0 NEUTROPHILS (test code = 1008) 55.4 % LYMPHOCYTES (test code = 1010) 32.8 % MONOCYTES (test code = 1011) 9.7 % EOSINOPHILS (test code = 1012) 1.2 % BASOPHILS (test code = 1013) 0.8 % IMMATURE GRANULOCYTES (test code = 1036) 0.1 % NUCLEATED RBCS (test code = 1065) 0.0 /100 WBC'S See_Comment [Automated [employer] ge] The system which generated this result transmitted reference range: 0.0. The reference range was not used to interpret this result as normal/abnormal. PLATELET COUNT (test code = 1015) 277 K/UL 130-400 ABSOLUTE NEUTROPHILS (test code = 1066) 4.27 K/UL 1.50-7.50 ABSOLUTE LYMPHOCYTES (test code = 1067) 2.53 K/UL 1.00-4.00 ABSOLUTE MONOCYTES (test code = 1068) 0.75 K/UL 0.20-1.00 ABSOLUTE EOSINOPHILS (test code = 1040) 0.09 K/UL 0.00-0.50 ABSOLUTE BASOPHILS (test code = 1069) 0.06 K/UL 0.00-0.20 ABS IMMATURE GRANULOCYTES (test code = 1020) 0.01 K/UL 0.00-0.10 ABS NUCLEATED RBCS (test code = 94050) 0.00 K/UL 0.00-0.11 CBC W/AUTO [id number] 00:00:00* Test Item Value Reference Range Interpretation Comme nts WBC (test code = 1001) 7.7 K/UL RBC (test code = 1002) 4.68 M/UL HEMOGLOBIN (test code = 1003) 14.9 G/DL HEMATOCRIT (test code = 1004) 43.8 % MCV (test code = 1005) 93.6 fL MCH (test code = 1006) 31.8 PG MCHC (test code = 1007) 34.0 G/DL RDW (test code = 1038) 12.8 % NEUTROPHILS (test code = 1008) 55.4 % LYMPHOCYTES (test code = 1010) 32.8 % MONOCYTES (test code = 1011) 9.7 % EOSINOPHILS (test code = 1012) 1.2 % BASOPHILS (test code = 1013) 0.8 % IMMATURE GRANULOCYTES (test code = 1036) 0.1 % NUCLEATED RBCS (test code = 1065) 0.0 /100WBC'S PLATELET COUNT (test code = 1015) 277 K/UL ABSOLUTE NEUTROPHILS (test c ode = 1066) 4.27 K/UL ABSOLUTE LYMPHOCYTES (test c ode = 1067) 2.53 K/UL ABSOLUTE MONOCYTES (test cod e = 1068) 0.75 K/UL ABSOLUTE EOSINOPHILS (test c ode = 1040) 0.09 K/UL ABSOLUTE BASOPHILS (test cod e = 1069) 0.06 K/UL ABS IMMATURE GRANULOCYTES (t est code = 1020) 0.01 K/UL ABS NUCLEATED RBCS (test cod e = 06634) 0.00 K/UL Ryland Daniels AustinCOMPREHENSIVE METABOLIC [id number] 00:00:00* Test Item Value Reference Range Interpretation Comme nts GLUCOSE (test code = 2217) 106 MG/DL BUN (test code = 2208) 19 MG/DL CREATININE (test code = 2214) 1.20 MG/DL eGFR (2020 CKD-EPI) (test co de = 13046) 72 ML/MIN/1.73 CALC BUN/CREAT (test code = 2235) 16 RATIO SODIUM (test code = 2231) 136 MEQ/L POTASSIUM (test code = 2228) 4.6 MEQ/L CHLORIDE (test code = 2215) 98 MEQ/L CARBON DIOXIDE (test code = 2206) 23 MEQ/L CALCIUM (test code = 2209) 9.8 MG/DL PROTEIN, TOTAL (test code = 2229) 7.1 G/DL ALBUMIN (test code = 2201) 4.7 G/DL CALC GLOBULIN (test code = 2240) 2.4 G/DL CALC A/G RATIO (test code = 2234) 2.0 RATIO BILIRUBIN, TOTAL (test code = 2207) 0.5 MG/DL ALKALINE PHOSPHATASE (test code = 2204) 84 U/L AST (test code = 2218) 23 U/L ALT (test code = 2219) 20 U/L Ryland De GuzmanCBC W/AUTO [id number] 00:00:00* Test Item Value Reference Range Interpretation Comme nts WBC (test code = 1001) 7.7 K/UL RBC (test code = 1002) 4.68 M/UL HEMOGLOBIN (test code = 1003) 14.9 G/DL HEMATOCRIT (test code = 1004) 43.8 % MCV (test code = 1005) 93.6 fL MCH (test code = 1006) 31.8 PG MCHC (test code = 1007) 34.0 G/DL RDW (test code = 1038) 12.8 % NEUTROPHILS (test code = 1008) 55.4 % LYMPHOCYTES (test code = 1010) 32.8 % MONOCYTES (test code = 1011) 9.7 % EOSINOPHILS (test code = 1012) 1.2 % BASOPHILS (test code = 1013) 0.8 % IMMATURE GRANULOCYTES (test code = 1036) 0.1 % NUCLEATED RBCS (test code = 1065) 0.0 /100WBC'S PLATELET COUNT (test code = 1015) 277 K/UL ABSOLUTE NEUTROPHILS (test c ode = 1066) 4.27 K/UL ABSOLUTE LYMPHOCYTES (test c ode = 1067) 2.53 K/UL ABSOLUTE MONOCYTES (test cod e = 1068) 0.75 K/UL ABSOLUTE EOSINOPHILS (test c ode = 1040) 0.09 K/UL ABSOLUTE BASOPHILS (test cod e = 1069) 0.06 K/UL ABS IMMATURE GRANULOCYTES (t est code = 1020) 0.01 K/UL ABS NUCLEATED RBCS (test cod e = 20127) 0.00 K/UL Ryland De GuzmanCOMPREHENSIVE METABOLIC [id number] 00:00:00* Test Item Value Reference Range Interpretation Comme nts GLUCOSE (test code = 2217) 106 MG/DL BUN (test code = 2208) 19 MG/DL CREATININE (test code = 2214) 1.20 MG/DL eGFR (2020 CKD-EPI) (test co de = 78488) 72 ML/MIN/1.73 CALC BUN/CREAT (test code = 2235) 16 RATIO SODIUM (test code = 223) 136 MEQ/L POTASSIUM (test code = 2228) 4.6 MEQ/L CHLORIDE (test code = 2215) 98 MEQ/L CARBON DIOXIDE (test code = 2206) 23 MEQ/L CALCIUM (test code = 2209) 9.8 MG/DL PROTEIN, TOTAL (test code = 222) 7.1 G/DL ALBUMIN (test code = 2201) 4.7 G/DL CALC GLOBULIN (test code = 2240) 2.4 G/DL CALC A/G RATIO (test code = 2234) 2.0 RATIO BILIRUBIN, TOTAL (test code = 7) 0.5 MG/DL ALKALINE PHOSPHATASE (test code = 2204) 84 U/L AST (test code = 2218) 23 U/L ALT (test code = 2219) 20 U/L Ryland Daniels SheldonLIPID [id number] 06:55:08* Test Item Value Reference Range Interpretation Comme nts CHOLESTEROL (test code = 2210) 167 MG/DL <200 TRIGLYCERIDES (test code = 2232) 188 MG/DL <150 H HDL CHOLESTEROL (test code = 2220) 64 MG/DL >39 CALC LDL CHOL (test code = 2237) 75 MG/DL <100 NOTE: CALCULATED LDL IS BASED ON ANA-DUNCAN METHOD WHICHINCLUDES ADJUSTABLE TRIGLYCERIDE:VLDL CHOLESTEROL RATIO.THIS FACTOR VARIES BY MEASURED TRIGLYCERIDE AND NON-HDLCHOLESTEROL CONCENTRATIONS WITH INCREASED CALCULATED LDL SEENIN HIGHER TRIGLYCERIDE OR LOWER NON-HDL SPECIMENS. FOR MOREINFORMATION, SEE CLIENT ANNOUNCEMENT AT [email or web address] RISK RATIO LDL/HDL (test code = 2238) 1.17 RATIO <3.55 COMPREHENSIVE METABOLIC [id number] 06:55:08* Test Item Value Reference Range Interpretation Comme nts GLUCOSE (test code = 2217) 75 MG/DL 70-99 BUN (test code = 2208) 18 MG/DL 6-20 CREATININE (test code = 2213) 1.29 MG/DL 0.80-1.40 eGFR (2020 CKD-EPI) (test co de = 98081) 66 ML/MIN/1.73 >60 CALC BUN/CREAT (test code = 2234) 14 RATIO 6-28 SODIUM (test code = 2230) 136 MEQ/L 133-146 POTASSIUM (test code = 2227) 4.8 MEQ/L 3.5-5.4 CHLORIDE (test code = 2214) 96 MEQ/L 95-107 CARBON DIOXIDE (test code = 2205) 25 MEQ/L 19-31 CALCIUM (test code = 2208) 10.1 MG/DL 8.5-10.5 PROTEIN, TOTAL (test code = 2228) 7.4 G/DL 6.1-8.3 ALBUMIN (test code = 2200) 4.8 G/DL 3.5-5.2 CALC GLOBULIN (test code = 2239) 2.6 G/DL 1.9-3.7 CALC A/G RATIO (test code = 2233) 1.8 RATIO 1.0-2.6 BILIRUBIN, TOTAL (test code = 2206) 0.6 MG/DL <=1.2 ALKALINE PHOSPHATASE (test code = 2203) 82 U/L 40-121 AST (test code = 2217) 29 U/L 9-50 ALT (test code = 2218) 25 U/L 5-50 HEMOGLOBIN [id number] 03:29:46* Test Item Value Reference Range Interpretation Comme nts HEMOGLOBIN A1c (test code = 09905) 5.6 % 4.2-5.6 CBC W/AUTO DIFF WITH [id number] 02:47:07* Test Item Value Reference Range Interpretation [...] 0.00-0.10 ABS NUCLEATED RBCS (test code = 63516) 0.00 K/UL 0.00-0.11 UNLESS OTHER TEJEDA INDICATED, ALL TESTING PERFORMED AT [facility] [address] [place] [address] COIN BOX INSPECTOR: DAVID MANRIQUEZ M.D. CLIA NUMBER [id number] [facility] [place]. [id number] HEMOGLOBIN [id number] 00:00:00* Test Item Value Reference Range Interpretation Comme nts HEMOGLOBIN A1c (test code = 12403) 5.6 % Ryland Daniels AustinLIPID [id number] 00:00:00* Test Item Value Reference Range Interpretation Comme nts CHOLESTEROL (test code = 2210) 167 MG/DL TRIGLYCERIDES (test code = 2232) 188 MG/DL HDL CHOLESTEROL (test code = 2220) 64 MG/DL CALC LDL CHOL (test code = 2237) 75 MG/DL RISK RATIO LDL/HDL (test cod e = 2238) 1.17 RATIO Ryland De GuzmanCOMPREHENSIVE METABOLIC [id number] 00:00:00* Test Item Value Reference Range Interpretation Comme nts GLUCOSE (test code = 2217) 75 MG/DL BUN (test code = 2208) 18 MG/DL CREATININE (test code = 2214) 1.29 MG/DL eGFR (2020 CKD-EPI) (test co de = 53369) 66 ML/MIN/1.73 CALC BUN/CREAT (test code = 2235) 14 RATIO SODIUM (test code = 2231) 136 MEQ/L POTASSIUM (test code = 2228) 4.8 MEQ/L CHLORIDE (test code = 2215) 96 MEQ/L CARBON DIOXIDE (test code = 2206) 25 MEQ/L CALCIUM (test code = 2209) 10.1 MG/DL PROTEIN, TOTAL (test code = 2229) 7.4 G/DL ALBUMIN (test code = 2201) 4.8 G/DL CALC GLOBULIN (test code = 2240) 2.6 G/DL CALC A/G RATIO (test code = 2234) 1.8 RATIO BILIRUBIN, TOTAL (test code = 2207) 0.6 MG/DL ALKALINE PHOSPHATASE (test code = 2204) 82 U/L AST (test code = 2218) 29 U/L ALT (test code = 2219) 25 U/L Ryland De GuzmanCBC W/AUTO [id number] 00:00:00* Test Item Value Reference Range Interpretation Comme nts WBC (test code = 1001) 9.2 K/UL RBC (test code = 1002) 4.72 M/UL HEMOGLOBIN (test code = 1003) 15.6 G/DL HEMATOCRIT (test code = 1004) 44.6 % MCV (test code = 1005) 94.5 fL MCH (test code = 1006) 33.1 PG MCHC (test code = 1007) 35.0 G/DL RDW (test code = 1038) 12.0 % NEUTROPHILS (test code = 1008) 58.6 % LYMPHOCYTES (test code = 1010) 28.6 % MONOCYTES (test code = 1011) 10.6 % EOSINOPHILS (test code = 1012) 1.1 % BASOPHILS (test code = 1013) 0.8 % IMMATURE GRANULOCYTES (test code = 1036) 0.3 % NUCLEATED RBCS (test code = 1065) 0.0 /100WBC'S PLATELET COUNT (test code = 1015) 295 K/UL ABSOLUTE NEUTROPHILS (test c ode = 1066) 5.38 K/UL ABSOLUTE LYMPHOCYTES (test c ode = 1067) 2.62 K/UL ABSOLUTE MONOCYTES (test cod e = 1068) 0.97 K/UL ABSOLUTE EOSINOPHILS (test c ode = 1040) 0.10 K/UL ABSOLUTE BASOPHILS (test cod e = 1069) 0.07 K/UL ABS IMMATURE GRANULOCYTES (t est code = 1020) 0.03 K/UL ABS NUCLEATED RBCS (test cod e = 10684) 0.00 K/UL Ryland De GuzmanHEMOGLOBIN [id number] 00:00:00* Test Item Value Reference Range Interpretation Comme nts HEMOGLOBIN A1c (test code = 85200) 5.6 % Ryland De GuzmanLIPID [id number] 00:00:00* Test Item Value Reference Range Interpretation Comme nts CHOLESTEROL (test code = 2210) 167 MG/DL TRIGLYCERIDES (test code = 2232) 188 MG/DL HDL CHOLESTEROL (test code = 2220) 64 MG/DL CALC LDL CHOL (test code = 2237) 75 MG/DL RISK RATIO LDL/HDL (test cod e = 2238) 1.17 RATIO Ryland De GuzmanCOMPREHENSIVE METABOLIC [id number] 00:00:00* Test Item Value Reference Range Interpretation Comme nts GLUCOSE (test code = 2217) 75 MG/DL BUN (test code = 2208) 18 MG/DL CREATININE (test code = 2214) 1.29 MG/DL eGFR (2020 CKD-EPI) (test co de = 71617) 66 ML/MIN/1.73 CALC BUN/CREAT (test code = 2235) 14 RATIO SODIUM (test code = 2231) 136 MEQ/L POTASSIUM (test code = 2228) 4.8 MEQ/L CHLORIDE (test code = 2215) 96 MEQ/L CARBON DIOXIDE (test code = 2206) 25 MEQ/L CALCIUM (test code = 2209) 10.1 MG/DL PROTEIN, TOTAL (test code = 2229) 7.4 G/DL ALBUMIN (test code = 2201) 4.8 G/DL CALC GLOBULIN (test code = 2240) 2.6 G/DL CALC A/G RATIO (test code = 2234) 1.8 RATIO BILIRUBIN, TOTAL (test code = 2207) 0.6 MG/DL ALKALINE PHOSPHATASE (test code = 2204) 82 U/L AST (test code = 2218) 29 U/L ALT (test code = 2219) 25 U/L Ryland De GuzmanCBC W/AUTO [id number] 00:00:00* Test Item Value Reference Range Interpretation Comme nts WBC (test code = 1001) 9.2 K/UL RBC (test code = 1002) 4.72 M/UL HEMOGLOBIN (test code = 1003) 15.6 G/DL HEMATOCRIT (test code = 1004) 44.6 % MCV (test code = 1005) 94.5 fL MCH (test code = 1006) 33.1 PG MCHC (test code = 1007) 35.0 G/DL RDW (test code = 1038) 12.0 % NEUTROPHILS (test code = 1008) 58.6 % LYMPHOCYTES (test code = 1010) 28.6 % MONOCYTES (test code = 1011) 10.6 % EOSINOPHILS (test code = 1012) 1.1 % BASOPHILS (test code = 1013) 0.8 % IMMATURE GRANULOCYTES (test code = 1036) 0.3 % NUCLEATED RBCS (test code = 1065) 0.0 /100WBC'S PLATELET COUNT (test code = 1015) 295 K/UL ABSOLUTE NEUTROPHILS (test c ode = 1066) 5.38 K/UL ABSOLUTE LYMPHOCYTES (test c ode = 1067) 2.62 K/UL ABSOLUTE MONOCYTES (test cod e = 1068) 0.97 K/UL ABSOLUTE EOSINOPHILS (test c ode = 1040) 0.10 K/UL ABSOLUTE BASOPHILS (test cod e = 1069) 0.07 K/UL ABS IMMATURE GRANULOCYTES (t est code = 1020) 0.03 K/UL ABS NUCLEATED RBCS (test cod e = 74153) 0.00 K/UL Ryland Daniels GabHEMOGLOBIN [id number] 00:00:00* Test Item Value Reference Range Interpretation Comme nts HEMOGLOBIN A1c (test code = 21798) 5.6 % Ryland De GuzmanLIPID [id number] 00:00:00* Test Item Value Reference Range Interpretation Comme nts CHOLESTEROL (test code = 2210) 167 MG/DL TRIGLYCERIDES (test code = 2232) 188 MG/DL HDL CHOLESTEROL (test code = 2220) 64 MG/DL CALC LDL CHOL (test code = 2237) 75 MG/DL RISK RATIO LDL/HDL (test cod e = 2238) 1.17 RATIO Ryland De GuzmanCOMPREHENSIVE METABOLIC [id number] 00:00:00* Test Item Value Reference Range Interpretation Comme nts GLUCOSE (test code = 2217) 75 MG/DL BUN (test code = 2208) 18 MG/DL CREATININE (test code = 2214) 1.29 MG/DL eGFR (2020 CKD-EPI) (test co de = 55770) 66 ML/MIN/1.73 CALC BUN/CREAT (test code = 2235) 14 RATIO SODIUM (test code = 2231) 136 MEQ/L POTASSIUM (test code = 2228) 4.8 MEQ/L CHLORIDE (test code = 2215) 96 MEQ/L CARBON DIOXIDE (test code = 2206) 25 MEQ/L CALCIUM (test code = 2209) 10.1 MG/DL PROTEIN, TOTAL (test code = 2229) 7.4 G/DL ALBUMIN (test code = 2201) 4.8 G/DL CALC GLOBULIN (test code = 2240) 2.6 G/DL CALC A/G RATIO (test code = 2234) 1.8 RATIO BILIRUBIN, TOTAL (test code = 2207) 0.6 MG/DL ALKALINE PHOSPHATASE (test code = 2204) 82 U/L AST (test code = 2218) 29 U/L ALT (test code = 2219) 25 U/L Ryland De GuzmanCBC W/AUTO [id number] 00:00:00* Test Item Value Reference Range Interpretation Comme nts WBC (test code = 1001) 9.2 K/UL RBC (test code = 1002) 4.72 M/UL HEMOGLOBIN (test code = 1003) 15.6 G/DL HEMATOCRIT (test code = 1004) 44.6 % MCV (test code = 1005) 94.5 fL MCH (test code = 1006) 33.1 PG MCHC (test code = 1007) 35.0 G/DL RDW (test code = 1038) 12.0 % NEUTROPHILS (test code = 1008) 58.6 % LYMPHOCYTES (test code = 1010) 28.6 % MONOCYTES (test code = 1011) 10.6 % EOSINOPHILS (test code = 1012) 1.1 % BASOPHILS (test code = 1013) 0.8 % IMMATURE GRANULOCYTES (test code = 1036) 0.3 % NUCLEATED RBCS (test code = 1065) 0.0 /100WBC'S PLATELET COUNT (test code = 1015) 295 K/UL ABSOLUTE NEUTROPHILS (test c ode = 1066) 5.38 K/UL ABSOLUTE LYMPHOCYTES (test c ode = 1067) 2.62 K/UL ABSOLUTE MONOCYTES (test cod e = 1068) 0.97 K/UL ABSOLUTE EOSINOPHILS (test c ode = 1040) 0.10 K/UL ABSOLUTE BASOPHILS (test cod e = 1069) 0.07 K/UL ABS IMMATURE GRANULOCYTES (t est code = 1020) 0.03 K/UL ABS NUCLEATED RBCS (test cod e = 70153) 0.00 K/UL Ryland De GuzmanHEMOGLOBIN [id number] 00:00:00* Test Item Value Reference Range Interpretation Comme nts HEMOGLOBIN A1c (test code = 83110) 5.6 % Ryland De GuzmanLIPID [id number] 00:00:00* Test Item Value Reference Range Interpretation Comme nts CHOLESTEROL (test code = 2210) 167 MG/DL TRIGLYCERIDES (test code = 2232) 188 MG/DL HDL CHOLESTEROL (test code = 2220) 64 MG/DL CALC LDL CHOL (test code = 2237) 75 MG/DL RISK RATIO LDL/HDL (test cod e = 2238) 1.17 RATIO Ryland De GuzmanCOMPREHENSIVE METABOLIC [id number] 00:00:00* Test Item Value Reference Range Interpretation Comme nts GLUCOSE (test code = 2217) 75 MG/DL BUN (test code = 2208) 18 MG/DL CREATININE (test code = 2214) 1.29 MG/DL eGFR (2020 CKD-EPI) (test co de = 07989) 66 ML/MIN/1.73 CALC BUN/CREAT (test code = 2235) 14 RATIO SODIUM (test code = 2231) 136 MEQ/L POTASSIUM (test code = 2228) 4.8 MEQ/L CHLORIDE (test code = 2215) 96 MEQ/L CARBON DIOXIDE (test code = 2206) 25 MEQ/L CALCIUM (test code = 2209) 10.1 MG/DL PROTEIN, TOTAL (test code = 2229) 7.4 G/DL ALBUMIN (test code = 2201) 4.8 G/DL CALC GLOBULIN (test code = 2240) 2.6 G/DL CALC A/G RATIO (test code = 2234) 1.8 RATIO BILIRUBIN, TOTAL (test code = 2207) 0.6 MG/DL ALKALINE PHOSPHATASE (test code = 2204) 82 U/L AST (test code = 2218) 29 U/L ALT (test code = 2219) 25 U/L Ryland Daniels GabDEACONESS HOS[facility] W/AUTO [id number] 00:00:00* Test Item Value Reference Range Interpretation Comme nts WBC (test code = 1001) 9.2 K/UL RBC (test code = 1002) 4.72 M/UL HEMOGLOBIN (test code = 1003) 15.6 G/DL HEMATOCRIT (test code = 1004) 44.6 % MCV (test code = 1005) 94.5 fL MCH (test code = 1006) 33.1 PG MCHC (test code = 1007) 35.0 G/DL RDW (test code = 1038) 12.0 % NEUTROPHILS (test code = 1008) 58.6 % LYMPHOCYTES (test code = 1010) 28.6 % MONOCYTES (test code = 1011) 10.6 % EOSINOPHILS (test code = 1012) 1.1 % BASOPHILS (test code = 1013) 0.8 % IMMATURE GRANULOCYTES (test code = 1036) 0.3 % NUCLEATED RBCS (test code = 1065) 0.0 /100WBC'S PLATELET COUNT (test code = 1015) 295 K/UL ABSOLUTE NEUTROPHILS (test c ode = 1066) 5.38 K/UL ABSOLUTE LYMPHOCYTES (test c ode = 1067) 2.62 K/UL ABSOLUTE MONOCYTES (test cod e = 1068) 0.97 K/UL ABSOLUTE EOSINOPHILS (test c ode = 1040) 0.10 K/UL ABSOLUTE BASOPHILS (test cod e = 1069) 0.07 K/UL ABS IMMATURE GRANULOCYTES (t est code = 1020) 0.03 K/UL ABS NUCLEATED RBCS (test cod e = 33105) 0.00 K/UL Ryland [id number] 05:18:43* Test Item Value Reference Range Interpretation Comme nts MAGNESIUM (test code = 2226) 2.1 MG/DL 1.6-2.6 UNLESS OTHERWISE INDICATED, ALL TESTING PERFORMED AT [facility] [address] [place] [address] COIN BOX INSPECTOR: DAVID MANRIQUEZ M.D. [facility] NUMBER [id number] [facility] [place] [place]. [id number] COMPREHENSIVE METABOLIC [id number] 05:09:34* Test Item Value Reference Range Interpretation Comme nts GLUCOSE (test code = 2217) 134 MG/DL 70-99 H BUN (test code = 2208) 12 MG/DL 6-20 CREATININE (test code = 2214) 1.38 MG/DL 0.80-1.40 eGFR (2020 CKD-EPI) (test code = 06786) 62 ML/MIN/1.73 >60 CALC BUN/CREAT (test code = 2235) 9 RATIO 6-28 SODIUM (test code = 2231) 137 MEQ/L 133-146 POTASSIUM (test code = 2228) 4.6 MEQ/L 3.5-5.4 CHLORIDE (test code = 2215) 98 MEQ/L 95-107 CARBON DIOXIDE (test code = 2206) 26 MEQ/L 19-31 CALCIUM (test code = 2209) 10.0 MG/DL 8.5-10.5 PROTEIN, TOTAL (test code = 2229) 6.7 G/DL 6.1-8.3 ALBUMIN (test code = 2201) 4.5 G/DL 3.5-5.2 CALC GLOBULIN (test code = 2240) 2.2 G/DL 1.9-3.7 CALC A/G RATIO (test code = 2234) 2.0 RATIO 1.0-2.6 BILIRUBIN, TOTAL (test code = 2207) 0.6 MG/DL See_Comment [Automated me ssage] The system which generated this result transmitted reference range: <=1.2. The reference range was not used to interpret this result as normal/abnormal. ALKALINE PHOSPHATASE (test code = 2204) 84 U/L 40-121 AST (test code = 2218) 21 U/L 9-50 ALT (test code = 2219) 18 U/L 5-50 CBC W/AUTO DIFF WITH [id number] 02:19:23* Test Item Value Reference Range Interpretation [...] 0.00-0.10 ABS NUCLEATED RBCS (test code = 20196) 0.00 K/UL 0.00-0.11 CBC W/AUTO [id number] 00:00:00* Test Item Value Reference Range Interpretation Comme nts WBC (test code = 1001) 9.4 K/UL RBC (test code = 1002) 4.37 M/UL HEMOGLOBIN (test code = 1003) 14.7 G/DL HEMATOCRIT (test code = 1004) 42.2 % MCV (test code = 1005) 96.6 fL MCH (test code = 1006) 33.6 PG MCHC (test code = 1007) 34.8 G/DL RDW (test code = 1038) 13.3 % NEUTROPHILS (test code = 1008) 63.3 % LYMPHOCYTES (test code = 1010) 26.8 % MONOCYTES (test code = 1011) 7.9 % EOSINOPHILS (test code = 1012) 0.9 % BASOPHILS (test code = 1013) 0.5 % IMMATURE GRANULOCYTES (test code = 1036) 0.6 % NUCLEATED RBCS (test code = 1065) 0.0 /100WBC'S PLATELET COUNT (test code = 1015) 295 K/UL ABSOLUTE NEUTROPHILS (test c ode = 1066) 5.93 K/UL ABSOLUTE LYMPHOCYTES (test c ode = 1067) 2.51 K/UL ABSOLUTE MONOCYTES (test cod e = 1068) 0.74 K/UL ABSOLUTE EOSINOPHILS (test c ode = 1040) 0.08 K/UL ABSOLUTE BASOPHILS (test cod e = 1069) 0.05 K/UL ABS IMMATURE GRANULOCYTES (t est code = 1020) 0.06 K/UL ABS NUCLEATED RBCS (test cod e = 05350) 0.00 K/UL Rylandsea De GuzmanCOMPREHENSIVE METABOLIC [id number] 00:00:00* Test Item Value Reference Range Interpretation Comme nts GLUCOSE (test code = 2217) 134 MG/DL BUN (test code = 2208) 12 MG/DL CREATININE (test code = 2214) 1.38 MG/DL eGFR (2020 CKD-EPI) (test co de = 38179) 62 ML/MIN/1.73 CALC BUN/CREAT (test code = 2235) 9 RATIO SODIUM (test code = 2231) 137 MEQ/L POTASSIUM (test code = 2228) 4.6 MEQ/L CHLORIDE (test code = 2215) 98 MEQ/L CARBON DIOXIDE (test code = 2206) 26 MEQ/L CALCIUM (test code = 2209) 10.0 MG/DL PROTEIN, TOTAL (test code = 2229) 6.7 G/DL ALBUMIN (test code = 2201) 4.5 G/DL CALC GLOBULIN (test code = 2240) 2.2 G/DL CALC A/G RATIO (test code = 2234) 2.0 RATIO BILIRUBIN, TOTAL (test code = 2207) 0.6 MG/DL ALKALINE PHOSPHATASE (test code = 2204) 84 U/L AST (test code = 2218) 21 U/L ALT (test code = 2219) 18 U/L Ryland De [id number] 00:00:00* Test Item Value Reference Range Interpretation Comme nts MAGNESIUM (test code = 2226) 2.1 MG/DL Ryland De GuzmanCBC W/AUTO [id number] 00:00:00* Test Item Value Reference Range Interpretation Comme nts WBC (test code = 1001) 9.4 K/UL RBC (test code = 1002) 4.37 M/UL HEMOGLOBIN (test code = 1003) 14.7 G/DL HEMATOCRIT (test code = 1004) 42.2 % MCV (test code = 1005) 96.6 fL MCH (test code = 1006) 33.6 PG MCHC (test code = 1007) 34.8 G/DL RDW (test code = 1038) 13.3 % NEUTROPHILS (test code = 1008) 63.3 % LYMPHOCYTES (test code = 1010) 26.8 % MONOCYTES (test code = 1011) 7.9 % EOSINOPHILS (test code = 1012) 0.9 % BASOPHILS (test code = 1013) 0.5 % IMMATURE GRANULOCYTES (test code = 1036) 0.6 % NUCLEATED RBCS (test code = 1065) 0.0 /100WBC'S PLATELET COUNT (test code = 1015) 295 K/UL ABSOLUTE NEUTROPHILS (test c ode = 1066) 5.93 K/UL ABSOLUTE LYMPHOCYTES (test c ode = 1067) 2.51 K/UL ABSOLUTE MONOCYTES (test cod e = 1068) 0.74 K/UL ABSOLUTE EOSINOPHILS (test c ode = 1040) 0.08 K/UL ABSOLUTE BASOPHILS (test cod e = 1069) 0.05 K/UL ABS IMMATURE GRANULOCYTES (t est code = 1020) 0.06 K/UL ABS NUCLEATED RBCS (test cod e = 53270) 0.00 K/UL Ryland De GuzmanCOMPREHENSIVE METABOLIC [id number] 00:00:00* Test Item Value Reference Range Interpretation Comme nts GLUCOSE (test code = 2217) 134 MG/DL BUN (test code = 2208) 12 MG/DL CREATININE (test code = 2214) 1.38 MG/DL eGFR (2020 CKD-EPI) (test co de = 55978) 62 ML/MIN/1.73 CALC BUN/CREAT (test code = 2235) 9 RATIO SODIUM (test code = 2231) 137 MEQ/L POTASSIUM (test code = 2228) 4.6 MEQ/L CHLORIDE (test code = 2215) 98 MEQ/L CARBON DIOXIDE (test code = 2206) 26 MEQ/L CALCIUM (test code = 2209) 10.0 MG/DL PROTEIN, TOTAL (test code = 2229) 6.7 G/DL ALBUMIN (test code = 2201) 4.5 G/DL CALC GLOBULIN (test code = 2240) 2.2 G/DL CALC A/G RATIO (test code = 2234) 2.0 RATIO BILIRUBIN, TOTAL (test code = 2207) 0.6 MG/DL ALKALINE PHOSPHATASE (test code = 2204) 84 U/L AST (test code = 2218) 21 U/L ALT (test code = 2219) 18 U/L Ryland De [id number] 00:00:00* Test Item Value Reference Range Interpretation Comme nts MAGNESIUM (test code = 2226) 2.1 MG/DL Ryland De GuzmanCBC W/AUTO [id number] 00:00:00* Test Item Value Reference Range Interpretation Comme nts WBC (test code = 1001) 9.4 K/UL RBC (test code = 1002) 4.37 M/UL HEMOGLOBIN (test code = 1003) 14.7 G/DL HEMATOCRIT (test code = 1004) 42.2 % MCV (test code = 1005) 96.6 fL MCH (test code = 1006) 33.6 PG MCHC (test code = 1007) 34.8 G/DL RDW (test code = 1038) 13.3 % NEUTROPHILS (test code = 1008) 63.3 % LYMPHOCYTES (test code = 1010) 26.8 % MONOCYTES (test code = 1011) 7.9 % EOSINOPHILS (test code = 1012) 0.9 % BASOPHILS (test code = 1013) 0.5 % IMMATURE GRANULOCYTES (test code = 1036) 0.6 % NUCLEATED RBCS (test code = 1065) 0.0 /100WBC'S PLATELET COUNT (test code = 1015) 295 K/UL ABSOLUTE NEUTROPHILS (test c ode = 1066) 5.93 K/UL ABSOLUTE LYMPHOCYTES (test c ode = 1067) 2.51 K/UL ABSOLUTE MONOCYTES (test cod e = 1068) 0.74 K/UL ABSOLUTE EOSINOPHILS (test c ode = 1040) 0.08 K/UL ABSOLUTE BASOPHILS (test cod e = 1069) 0.05 K/UL ABS IMMATURE GRANULOCYTES (t est code = 1020) 0.06 K/UL ABS NUCLEATED RBCS (test cod e = 62838) 0.00 K/UL Ryland De GuzmanCOMPREHENSIVE METABOLIC [id number] 00:00:00* Test Item Value Reference Range Interpretation Comme nts GLUCOSE (test code = 2217) 134 MG/DL BUN (test code = 2208) 12 MG/DL CREATININE (test code = 2214) 1.38 MG/DL eGFR (2020 CKD-EPI) (test co de = 62005) 62 ML/MIN/1.73 CALC BUN/CREAT (test code = 2235) 9 RATIO SODIUM (test code = 2231) 137 MEQ/L POTASSIUM (test code = 2228) 4.6 MEQ/L CHLORIDE (test code = 2215) 98 MEQ/L CARBON DIOXIDE (test code = 2206) 26 MEQ/L CALCIUM (test code = 2209) 10.0 MG/DL PROTEIN, TOTAL (test code = 2229) 6.7 G/DL ALBUMIN (test code = 2201) 4.5 G/DL CALC GLOBULIN (test code = 2240) 2.2 G/DL CALC A/G RATIO (test code = 2234) 2.0 RATIO BILIRUBIN, TOTAL (test code = 2207) 0.6 MG/DL ALKALINE PHOSPHATASE (test code = 2204) 84 U/L AST (test code = 2218) 21 U/L ALT (test code = 2219) 18 U/L Ryland De [id number] 00:00:00* Test Item Value Reference Range Interpretation Comme nts MAGNESIUM (test code = 2226) 2.1 MG/DL Ryland De GuzmanCBC W/AUTO [id number] 00:00:00* Test Item Value Reference Range Interpretation Comme nts WBC (test code = 1001) 9.4 K/UL RBC (test code = 1002) 4.37 M/UL HEMOGLOBIN (test code = 1003) 14.7 G/DL HEMATOCRIT (test code = 1004) 42.2 % MCV (test code = 1005) 96.6 fL MCH (test code = 1006) 33.6 PG MCHC (test code = 1007) 34.8 G/DL RDW (test code = 1038) 13.3 % NEUTROPHILS (test code = 1008) 63.3 % LYMPHOCYTES (test code = 1010) 26.8 % MONOCYTES (test code = 1011) 7.9 % EOSINOPHILS (test code = 1012) 0.9 % BASOPHILS (test code = 1013) 0.5 % IMMATURE GRANULOCYTES (test code = 1036) 0.6 % NUCLEATED RBCS (test code = 1065) 0.0 /100WBC'S PLATELET COUNT (test code = 1015) 295 K/UL ABSOLUTE NEUTROPHILS (test c ode = 1066) 5.93 K/UL ABSOLUTE LYMPHOCYTES (test c ode = 1067) 2.51 K/UL ABSOLUTE MONOCYTES (test cod e = 1068) 0.74 K/UL ABSOLUTE EOSINOPHILS (test c ode = 1040) 0.08 K/UL ABSOLUTE BASOPHILS (test cod e = 1069) 0.05 K/UL ABS IMMATURE GRANULOCYTES (t est code = 1020) 0.06 K/UL ABS NUCLEATED RBCS (test cod e = 83922) 0.00 K/UL Ryland De GuzmanCOMPREHENSIVE METABOLIC [id number] 00:00:00* Test Item Value Reference Range Interpretation Comme nts GLUCOSE (test code = 2217) 134 MG/DL BUN (test code = 2208) 12 MG/DL CREATININE (test code = 2214) 1.38 MG/DL eGFR (2020 CKD-EPI) (test co de = 18576) 62 ML/MIN/1.73 CALC BUN/CREAT (test code = 2235) 9 RATIO SODIUM (test code = 223) 137 MEQ/L POTASSIUM (test code = 2228) 4.6 MEQ/L CHLORIDE (test code = 2215) 98 MEQ/L CARBON DIOXIDE (test code = 6) 26 MEQ/L CALCIUM (test code = 2209) 10.0 MG/DL PROTEIN, TOTAL (test code = 2228) 6.7 G/DL ALBUMIN (test code = 2201) 4.5 G/DL CALC GLOBULIN (test code = 2240) 2.2 G/DL CALC A/G RATIO (test code = 2234) 2.0 RATIO BILIRUBIN, TOTAL (test code = 2206) 0.6 MG/DL ALKALINE PHOSPHATASE (test code = 2203) 84 U/L AST (test code = 2217) 21 U/L ALT (test code = 2218) 18 U/L Ryland De [id number] 00:00:00* Test Item Value Reference Range Interpretation Comme nts MAGNESIUM (test code = 2225) 2.1 MG/DL Ryland De GuzmanVITAMIN D, 25 [id number] 00:00:00* Test Item Value Reference Range Interpretation Comme nts VITAMIN D, 25 OH (test code = 4958) TEST NOT PERFORMED NG/ML Ryland De GuzmanANA AUTOIMMUNE [id number] 00:00:00* Test Item Value Reference Range Interpretation Comme nts ANTI-NUCLEAR ANTIBODIES (test code = 3506) TEST NOT PERFORMED INNA PATTERN (REPORTED TITER) (test code = 35032) TEST NOT PERFORMED HOMOGENEOUS (test code = 63219) TEST NOT PERFORMED TITER SPECKLED (test code = 672870) TEST NOT PERFORMED TITER DENSE FINE SPECKLED (test code = 79911) TEST NOT PERFORMED TITER CENTROMERE (test code = 299116) TEST NOT PERFORMED TITER COARSE SPECKLED (test code = 523961) TEST NOT PERFORMED TITER DISCRETE NUCLEAR DOTS (test code = 465406) TEST NOT PERFORMED TITER NUCLEOLAR (test code = 602028) TEST NOT PERFORMED TITER NUCLEAR MEMBRANE (test code = 857730) TEST NOT PERFORMED TITER CYTO. RETICULAR (GUICHO) (test code = 925042) TEST NOT PERFORMED COMMENTS (test code = 205438) TEST NOT PERFORMED METHOD (test code = 51629) TEST NOT PERFORMED SJOGREN'S SS-A ANTIBODY (test code = 78372) TEST NOT PERFORMED AI SJOGREN'S SS-B ANTIBODY (test code = 14858) TEST NOT PERFORMED AI JUAREZ (Sm) ANTIBODY (test code = 83696) TEST NOT PERFORMED AI WORKS MANAGER ANTIBODY (test code = 53402) TEST NOT PERFORMED AI SCL-70 ANTIBODY (test code = 4606) TEST NOT PERFORMED AI Jesise-1 ANTIBODY (test code = 4680) TEST NOT PERFORMED AI CENTROMERE B ANTIBODY (test code = 4630) TEST NOT PERFORMED AI RIBOSOMAL P ANTIBODY (test code = 42045) TEST NOT PERFORMED AI CHROMATIN ANTIBODY (test code = 57054) TEST NOT PERFORMED AI THYROID PEROXIDASE AB (test code = 92118) TEST NOT PERFORMED IU/ML COMPLEMENT C3 (test code = 3509) TEST NOT PERFORMED MG/DL COMPLEMENT C4 (test code = 3510) TEST NOT PERFORMED MG/DL RHEUMATOID FACTOR, QUANT (test code = 3502) TEST NOT PERFORMED IU/ML dsDNA ANTIBODY (test code = 4287) TEST NOT PERFORMED IU/ML CCP IgG (test code = 08553) TEST NOT PERFORMED U/ML Ryland De GuzmanVITAMIN [id number] 00:00:00* Test Item Value Reference Range Interpretation Comme nts VITAMIN B-12 (test code = 2840) TEST NOT PERFORMED PG/ML Ryland De GuzmanSEDIMENTATION [id number] 00:00:00* Test Item Value Reference Range Interpretation Comme nts SEDIMENTATION RATE (test code = 1017) TEST NOT PERFORMED MM/HOUR Ryland De GuzmanC-REACTIVE [id number] 00:00:00* Test Item Value Reference Range Interpretation Comme nts C-REACTIVE PROTEIN (test code = 3513) TEST NOT PERFORMED MG/DL Ryland Daniels AustinURIC [id number] 00:00:00* Test Item Value Reference Range Interpretation Comme nts URIC ACID (test code = 2233) TEST NOT PERFORMED MG/DL Ryland GabVITAMIN D, 25 [id number] 00:00:00* Test Item Value Reference Range Interpretation Comme nts VITAMIN D, 25 OH (test code = 4958) TEST NOT PERFORMED NG/ML Ryland De GuzmanANA AUTOIMMUNE [id number] 00:00:00* Test Item Value Reference Range Interpretation Comme nts ANTI-NUCLEAR ANTIBODIES (test code = 3506) TEST NOT PERFORMED INNA PATTERN (REPORTED TITER) (test code = 82400) TEST NOT PERFORMED HOMOGENEOUS (test code = 64011) TEST NOT PERFORMED TITER SPECKLED (test code = 032036) TEST NOT PERFORMED TITER DENSE FINE SPECKLED (test code = 31235) TEST NOT PERFORMED TITER CENTROMERE (test code = 889016) TEST NOT PERFORMED TITER COARSE SPECKLED (test code = 100295) TEST NOT PERFORMED TITER DISCRETE NUCLEAR DOTS (test code = 426649) TEST NOT PERFORMED TITER NUCLEOLAR (test code = 955723) TEST NOT PERFORMED TITER NUCLEAR MEMBRANE (test code = 489604) TEST NOT PERFORMED TITER CYTO. RETICULAR (GUICHO) (test code = 234902) TEST NOT PERFORMED COMMENTS (test code = 050992) TEST NOT PERFORMED METHOD (test code = 79847) TEST NOT PERFORMED SJOGREN'S SS-A ANTIBODY (test code = 84900) TEST NOT PERFORMED AI SJOGREN'S SS-B ANTIBODY (test code = 46000) TEST NOT PERFORMED AI JUAREZ (Sm) ANTIBODY (test code = 71744) TEST NOT PERFORMED AI WORKS MANAGER ANTIBODY (test code = 21410) TEST NOT PERFORMED AI SCL-70 ANTIBODY (test code = 4606) TEST NOT PERFORMED AI Jessie-1 ANTIBODY (test code = 4680) TEST NOT PERFORMED AI CENTROMERE B ANTIBODY (test code = 4630) TEST NOT PERFORMED AI RIBOSOMAL P ANTIBODY (test code = 43139) TEST NOT PERFORMED AI CHROMATIN ANTIBODY (test code = 92045) TEST NOT PERFORMED AI THYROID PEROXIDASE AB (test code = 72977) TEST NOT PERFORMED IU/ML COMPLEMENT C3 (test code = 3509) TEST NOT PERFORMED MG/DL COMPLEMENT C4 (test code = 3510) TEST NOT PERFORMED MG/DL RHEUMATOID FACTOR, QUANT (test code = 3502) TEST NOT PERFORMED IU/ML dsDNA ANTIBODY (test code = 4287) TEST NOT PERFORMED IU/ML CCP IgG (test code = 52283) TEST NOT PERFORMED U/ML Ryland Frances GabVITAMIN [id number] 00:00:00* Test Item Value Reference Range Interpretation Comme nts VITAMIN B-12 (test code = 2840) TEST NOT PERFORMED PG/ML Ryland Frances GabSEDIMENTATION [id number] 00:00:00* Test Item Value Reference Range Interpretation Comme nts SEDIMENTATION RATE (test code = 1017) TEST NOT PERFORMED MM/HOUR Ryland Frances GabC-REACTIVE [id number] 00:00:00* Test Item Value Reference Range Interpretation Comme nts C-REACTIVE PROTEIN (test code = 3513) TEST NOT PERFORMED MG/DL Ryland De GuzmanURIC [id number] 00:00:00* Test Item Value Reference Range Interpretation Comme harvinder URIC ACID (test code = 2233) TEST NOT PERFORMED MG/DL Ryland De GuzmanVITAMIN D, 25 [id number] 00:00:00* Test Item Value Reference Range Interpretation Comme harvinder VITAMIN D, 25 OH (test code = 4958) TEST NOT PERFORMED NG/ML Ryland Marvin AUTOIMMUNE [id number] 00:00:00* Test Item Value Reference Range Interpretation Comme nts ANTI-NUCLEAR ANTIBODIES (test code = 3506) TEST NOT PERFORMED INNA PATTERN (REPORTED TITER) (test code = 16278) TEST NOT PERFORMED HOMOGENEOUS (test code = 41444) TEST NOT PERFORMED TITER SPECKLED (test code = 144635) TEST NOT PERFORMED TITER DENSE FINE SPECKLED (test code = 88918) TEST NOT PERFORMED TITER CENTROMERE (test code = 219082) TEST NOT PERFORMED TITER COARSE SPECKLED (test code = 693052) TEST NOT PERFORMED TITER DISCRETE NUCLEAR DOTS (test code = 878908) TEST NOT PERFORMED TITER NUCLEOLAR (test code = 715109) TEST NOT PERFORMED TITER NUCLEAR MEMBRANE (test code = 778160) TEST NOT PERFORMED TITER CYTO. RETICULAR (GUICHO) (test code = 498133) TEST NOT PERFORMED COMMENTS (test code = 024095) TEST NOT PERFORMED METHOD (test code = 19749) TEST NOT PERFORMED SJOGREN'S SS-A ANTIBODY (test code = 88309) TEST NOT PERFORMED AI SJOGREN'S SS-B ANTIBODY (test code = 43263) TEST NOT PERFORMED AI JUAREZ (Sm) ANTIBODY (test code = 08093) TEST NOT PERFORMED AI WORKS MANAGER ANTIBODY (test code = 51368) TEST NOT PERFORMED AI SCL-70 ANTIBODY (test code = 4606) TEST NOT PERFORMED AI Jessie-1 ANTIBODY (test code = 4680) TEST NOT PERFORMED AI CENTROMERE B ANTIBODY (test code = 4630) TEST NOT PERFORMED AI RIBOSOMAL P ANTIBODY (test code = 14905) TEST NOT PERFORMED AI CHROMATIN ANTIBODY (test code = 53138) TEST NOT PERFORMED AI THYROID PEROXIDASE AB (test code = 25174) TEST NOT PERFORMED IU/ML COMPLEMENT C3 (test code = 3509) TEST NOT PERFORMED MG/DL COMPLEMENT C4 (test code = 3510) TEST NOT PERFORMED MG/DL RHEUMATOID FACTOR, QUANT (test code = 3502) TEST NOT PERFORMED IU/ML dsDNA ANTIBODY (test code = 4287) TEST NOT PERFORMED IU/ML CCP IgG (test code = 77375) TEST NOT PERFORMED U/ML Ryland De GuzmanVITAMIN [id number] 00:00:00* Test Item Value Reference Range Interpretation Comme [facility] VITAMIN B-12 (test code = 2840) TEST NOT PERFORMED PG/ML Ryland Daniels AustinSEDIMENTATION [id number] 00:00:00* Test Item Value Reference Range Interpretation Comme nts SEDIMENTATION RATE (test code = 1017) TEST NOT PERFORMED MM/HOUR Ryland Daniels AustinC-REACTIVE [id number] 00:00:00* Test Item Value Reference Range Interpretation Comme nts C-REACTIVE PROTEIN (test code = 3513) TEST NOT PERFORMED MG/DL Ryland De GuzmanURIC [id number] 00:00:00* Test Item Value Reference Range Interpretation Comme nts URIC ACID (test code = 2233) TEST NOT PERFORMED MG/DL Ryland De GuzmanVITAMIN D, 25 [id number] 00:00:00* Test Item Value Reference Range Interpretation Comme [facility] VITAMIN D, 25 OH (test code = 4958) TEST NOT PERFORMED NG/ML Ryland De GuzmanANA AUTOIMMUNE [id number] 00:00:00* Test Item Value Reference Range Interpretation Comme nts ANTI-NUCLEAR ANTIBODIES (test code = 3506) TEST NOT PERFORMED INNA PATTERN (REPORTED TITER) (test code = 64979) TEST NOT PERFORMED HOMOGENEOUS (test code = 50495) TEST NOT PERFORMED TITER SPECKLED (test code = 270119) TEST NOT PERFORMED TITER DENSE FINE SPECKLED (test code = 85463) TEST NOT PERFORMED TITER CENTROMERE (test code = 349091) TEST NOT PERFORMED TITER COARSE SPECKLED (test code = 326694) TEST NOT PERFORMED TITER DISCRETE NUCLEAR DOTS (test code = 588017) TEST NOT PERFORMED TITER NUCLEOLAR (test code = 234911) TEST NOT PERFORMED TITER NUCLEAR MEMBRANE (test code = 689660) TEST NOT PERFORMED TITER CYTO. RETICULAR (GUICHO) (test code = 649009) TEST NOT PERFORMED COMMENTS (test code = 822885) TEST NOT PERFORMED METHOD (test code = 74124) TEST NOT PERFORMED SJOGREN'S SS-A ANTIBODY (test code = 29962) TEST NOT PERFORMED AI SJOGREN'S SS-B ANTIBODY (test code = 71794) TEST NOT PERFORMED AI JUAREZ (Sm) ANTIBODY (test code = 19359) TEST NOT PERFORMED AI WORKS MANAGER ANTIBODY (test code = 58670) TEST NOT PERFORMED AI SCL-70 ANTIBODY (test code = 4606) TEST NOT PERFORMED AI Jessie-1 ANTIBODY (test code = 4680) TEST NOT PERFORMED AI CENTROMERE B ANTIBODY (test code = 4630) TEST NOT PERFORMED AI RIBOSOMAL P ANTIBODY (test code = 42841) TEST NOT PERFORMED AI CHROMATIN ANTIBODY (test code = 17966) TEST NOT PERFORMED AI THYROID PEROXIDASE AB (test code = 73686) TEST NOT PERFORMED IU/ML COMPLEMENT C3 (test code = 3509) TEST NOT PERFORMED MG/DL COMPLEMENT C4 (test code = 3510) TEST NOT PERFORMED MG/DL RHEUMATOID FACTOR, QUANT (test code = 3502) TEST NOT PERFORMED IU/ML dsDNA ANTIBODY (test code = 4287) TEST NOT PERFORMED IU/ML CCP IgG (test code = 81829) TEST NOT PERFORMED U/ML Ryland F AustinVITAMIN [id number] 00:00:00* Test Item Value Reference Range Interpretation Comme nts VITAMIN B-12 (test code = 2840) TEST NOT PERFORMED PG/ML Ryland F AustinSEDIMENTATION [id number] 00:00:00* Test Item Value Reference Range Interpretation Comme nts SEDIMENTATION RATE (test code = 1017) TEST NOT PERFORMED MM/HOUR Ryland F AustinC-REACTIVE [id number] 00:00:00* Test Item Value Reference Range Interpretation Comme nts C-REACTIVE PROTEIN (test code = 3513) TEST NOT PERFORMED MG/DL Ryland F AustinURIC [id number] 00:00:00* Test Item Value Reference Range Interpretation Comme nts URIC ACID (test code = 2233) TEST NOT PERFORMED MG/DL Ryland F AustinANA AUTOIMMUNE [id number] 00:23:01* Test Item Value Reference Range Interpretation Comments ANTI-NUCLEAR ANTIBODIES (test code = 3506) NEGATIVE NEGATIVE INNA PATTERN (REPORTED TITER) (test code = 50234) SEE BELOW HOMOGENEOUS (test code = 81770) NEGATIVE TITER NEGATIVE SPECKLED (test code = 511164) NEGATIVE TITER NEGATIVE DENSE FINE SPECKLED (test code = 83743) NEGATIVE TITER NEGATIVE CENTROMERE (test code = 161110) NEGATIVE TITER NEGATIVE COARSE SPECKLED (test code = 410001) NEGATIVE TITER NEGATIVE DISCRETE NUCLEAR DOTS (test code = 593464) NEGATIVE TITER NEGATIVE NUCLEOLAR (test code = 563297) NEGATIVE TITER NEGATIVE NUCLEAR MEMBRANE (test code = 653162) NEGATIVE TITER NEGATIVE CYTO. RETICULAR (GUICHO) (test code = 055506) NEGATIVE NEGATIVE COMMENTS (test code = 326229) NONE METHOD (test code = 68733) (NOTE) TESTING PERFORME D BY Qalendra IFA PLATFORM.THE METHOD INCLUDES A SCREEN THRESHOLD OF 1:80, DIGITIZED AND COMPUTER ALGORITHM-ASSISTED INTERPRETATION OF TITERS AND DIGITAL PATTERNS, AND HEp-2 CELL LINE SUBSTRATE. ADDITIONAL UNUSUAL PATTERNS WILL BE GIVEN COMMENTS.FOR MORE INFORMATION, SEE [email or web address] SJOGREN'S SS-A ANTIBODY (test code = 72756) <0.2 AI <1.0 SJOGREN'S SS-B ANTIBODY (test code = 15785) <0.2 AI <1.0 JUAREZ (Sm) ANTIBODY (test code = 23141) <0.2 AI <1.0 WORKS MANAGER ANTIBODY (test code = 80395) <0.2 AI <1.0 SCL-70 ANTIBODY (test code = 4606) <0.2 AI <1.0 Jessie-1 ANTIBODY (test code = 4680) <0.2 AI <1.0 CENTROMERE B ANTIBODY (test code = 4630) <0.2 AI <1.0 RIBOSOMAL P ANTIBODY (test code = 93474) <0.2 AI <1.0 CHROMATIN ANTIBODY (test code = 55695) <0.2 AI <1.0 THYROID PEROXIDASE AB (test code = 62185) <9 IU/ML See_Comment EFFECTIVE 2022, NEW REFERENCE RANGE CHANGE ASSOCIATEDWITH CHANGE IN METHODOLOGY.NEW METHODOLOGY IS EQO ELECTROCHEMILUMESCENCE IMMUNOASSAY(ECLIA). FOR MORE INFORMATION, [email or web address] [Automated message] The system which generated this [...] IU/ML >=10.0 CCP IgG (test code = 02596) <0.5 U/ML <3.0 INTERPRETIVE INFORMATION INTERPRETATION RESULT NEGATIVE <3.0 U/ML POSITIVE >=3.0 U/ML VITAMIN [id number] 06:49:09* Test Item Value Reference Range Interpretation Comme [facility] VITAMIN B-12 (test code = 2840) 421 PG/ML 200-950 C-REACTIVE [id number] 06:40:23* Test Item Value Reference Range Interpretation Comme [facility] C-REACTIVE PROTEIN (test cod e = 3513) <0.3 MG/DL <0.5 VITAMIN D, 25 [id number] 06:20:42* Test Item Value Reference Range Interpretation Comme [facility] VITAMIN D, 25 OH (test code [...] . . . . NG/ML 30-100 URIC [id number] 06:04:29* Test Item Value Reference Range Interpretation Comme [facility] URIC ACID (test code = 2233) 4.5 MG/DL 3.7-8.0 UNLESS OTHERWISE INDICATED, ALL TESTING PERFORMED AT [facility] [address] [place] [address] COIN BOX INSPECTOR: DAVID MANRIQUEZ M.D. [place] NUMBER [id number] [facility] [place]. [id number] SEDIMENTATION [id number] 05:04:31* Test Item Value Reference Range Interpretation Comme nts SEDIMENTATION RATE (test cod e = 1017) 2 MM/HOUR 0-15 TROPONIN [id number] 00:15:45* Test Item Value Reference Range Interpretation Comments TROPONIN I (test code = 6480628543) 0.005 ng/mL See_Comment [Automated message] The system [...] of biotin. Lab Interpretation (test code = 76850-7) [facility] (57850)2022-03-30 00:07:03* Test Item Value Reference Range Interpretation Comme nts NA (test code = 7172314572) 133 mmol/L 135-145 L K (test code = 5311119831) 4.2 mmol/L 3.5-5.0 CL (test code = 5702016560) 100 mmol/L 98-108 CO2 TOTAL (test code = 1903772501) 26 mmol/L 23-31 AGAP (test code = 7346470238) 2-16 BUN (test code = 4013526109) 10 mg/dL 7-23 GLUCOSE (test code = 0664856485) 96 mg/dL 70-110 CREATININE (test code = 6066494085) 0.77 mg/dL 0.60-1.25 TOTAL BILI (test code = 8188158052) 1.0 mg/dL 0.1-1.1 CALCIUM (test code = 6685165536) 9.2 mg/dL 8.6-10.6 T PROTEIN (test code = 3712044073) 7.1 g/dL 6.3-8.2 ALBUMIN (test code = 4151508980) 4.3 g/dL 3.5-5.0 ALK PHOS (test code = 6114278708) 84 U/L 34-122 ALTv (test code = 1742-6) 24 U/L 5-50 AST(SGOT) (test code = 0756278043) 31 U/L 13-40 eGFR (test code = 7430330015) mL/min/1.73m2 ROBERTO CARLOS (test code = ROBERTO [...] imaging tests). Lab Interpretation (test code = 34421-3) [facility]normal [facility] 00:07:03* Test Item Value Reference Range Interpretation Comme nts LIPASE (test code = 8011610672) 107 U/L 0-220 Lab Interpretation (test cod e = 30373-6) Normal [facility] WITH [id number] 23:59:23* Test Item Value Reference Range Interpretation Comme nts WBC (test code = 6690-2) See_Comment [Automated messa ge] The system which generated this result transmitted reference range: 4.20 - 10.70 10*3/?L. The reference range was not used to interpret this result as normal/abnormal. RBC (test code = 789-8) See_Comment [Automated messa ge] The system which [...] 34.8 g/dL 31.2-35.0 RDW-SD (test code = 27454-8) 41.1 fL 38.5-51.6 RDW-CV (test code = 788-0) 11.8 % 12.1-15.4 L PLT (test code = 777-3) See_Comment [Automated messa ge] The system which generated this result transmitted reference range: 150 - 328 10*3/?L. The reference range was not used to interpret this result as normal/abnormal. MPV (test code = 12624-5) 9.6 fL 9.8-13.0 L NRBC/100 WBC (test code = 9478837356) See_Comment [Automated Monkeysee ssage] The system which generated this result transmitted reference range: 0.0 - 10.0 /100 WBCs. The reference range was not used to interpret this result as normal/abnormal. NRBC x10^3 (test code = 4707184860) See_Comment [Automated messa ge] The system which generated this result transmitted reference range: 10*3/?L. The reference range was not used to interpret this result as normal/abnormal. GRAN MAT (NEUT) % (test code = 770-8) 61.9 % IMM GRAN % (test code = 1450048188) 0.30 % LYMPH % (test code = 736-9) 28.5 % MONO % (test code = 5905-5) 8.0 % EOS % (test code = 713-8) 0.6 % BASO % (test code = 706-2) 0.7 % GRAN MAT x10^3(ANC) (test code = 6262674284) 6.38 10*3/uL 1.99-6.95 IMM GRAN x10^3 (test code = 7281176261) 0.03 10*3/uL 0.00-0.06 LYMPH x10^3 (test code = 731-0) 2.94 10*3/uL 1.09-3.23 MONO x10^3 (test code = 742-7) 0.82 10*3/uL 0.36-1.02 EOS x10^3 (test code = 711-2) 0.06 10*3/uL 0.06-0.53 BASO x10^3 (test code = 704-7) 0.07 10*3/uL 0.01-0.09 Lab Interpretation (test code = 00577-8) Abnormal [facility] Notes Date/Time Note Provider Source [facility]2024-08-16 00:00:00 [facility]2024-07-02 00:00:00 [facility]2024-06-04 00:00:00 [facility]"
--- NOTE | 2024-07-26 22:11 | RAD REPORT ---
EXAM: Lower Ext Angio HISTORY: L leg pain, claudication COMPARISON: None TECHNIQUE: Multiple contiguous axial images were obtained a CTA of the left lower extremity with cont rast. Sagittal and coronal 3-D MIP reformats were performed. FINDINGS: Patent left common and external iliac arteries. Patent left common femoral artery. Patent left SFA stent which is located proximally. The mid and distal left SFA are also patent. The p opliteal artery is patent. The tibioperoneal trunk and peroneal artery are patent. The anterior tibial artery is patent to about its midportion where it is nonopacified which may be due to outrunni ng of the contrast bolus. A similar finding is also seen at the posterior tibial artery. The left profunda is severely narrowed at its origin. Some of this could be from mass effect or parti al coverage of the profunda origin from the stent. IMPRESSION: Patent left SFA stent. Severe stenosis at the origin of the left profunda which may be as result of the stent or may predate placement of the stent. No comparison available.
--- NOTE | 2024-07-26 22:19 | EDPHYS ---
Physician Documentation [facility] Name: Ubaldo Waldron Age: 54 yrs Sex: Male : 1970 Arrival Date: 07/26/2024 Time: 19:16 Bed 4 Private MD: ED Physician Adriano Gonzales HPI: 07/26 19:39 This 54 yrs old Male presents to ER via Wheelchair with complaints of Leg Pain, Post rt stent placement on 07-25-24. 19:41 Yesterday, the patient had a stent placed in his left leg. States that he has had rt worsening pain to his left foot since the procedure. Is worse when he walks. Denies other acute complaints at this time, symptoms are moderate in severity, aching nature, nonradiating, no other aggravating or elevating factors.. Historical: - Allergies: 19:30 NKA; cm10 - Home Meds: 19:30 amlodipine oral [Active]; Lisinopril Oral [Active]; cm10 - PMHx: 19:30 Congestive heart failure; Hypertensive disorder; cm10 - PSHx: 19:30 hernia (en); Stent in left leg; cm10 - Immunization history:: Adult Immunizations unknown. - Infectious Disease History:: Denies. - Social history:: Smoking status: Patient reports the use of cigarette tobacco products, smokes one pack cigarettes per day. - Family history:: not pertinent. ROS: 19:41 Constitutional: Negative for fever, chills, and weight loss, Cardiovascular: Negative rt for chest pain, palpitations, and edema, Respiratory: Negative for shortness of breath, cough, wheezing, and pleuritic chest pain, Abdomen/GI: Negative for abdominal pain, nausea, vomiting, diarrhea, and constipation, Skin: Negative for injury, rash, and discoloration, Neuro: Negative for headache, weakness, numbness, tingling, and seizure, 19:41 MS/extremity: Positive for pain, Negative for injury or acute deformity, Exam: 19:41 Constitutional: This is a well developed, well nourished patient who is awake, alert, rt and in no acute distress. Head/Face: Normocephalic, atraumatic. Chest/axilla: Normal chest wall appearance and motion. Nontender with no deformity. No lesions are appreciated. Cardiovascular: Regular rate and rhythm with a normal S1 and S2. No gallops, murmurs, or rubs. Normal PMI, no JVD. No pulse deficits. Respiratory: Lungs have equal breath sounds bilaterally, clear to auscultation and percussion. No rales, rhonchi or wheezes noted. No increased work of breathing, no retractions or nasal flaring. Abdomen/GI: Soft, non-tender, with normal bowel sounds. No distension or tympany. No guarding or rebound. No evidence of tenderness throughout. Skin: Warm, dry with normal turgor. Normal color with no rashes, no lesions, and no evidence of cellulitis. Neuro: Awake and alert, GCS 15, oriented to person, place, time, and situation. Cranial nerves II-XII grossly intact. Motor strength 5/5 in all extremities. Sensory grossly intact. Cerebellar exam normal. Normal gait. 19:41 Musculoskeletal/extremity: Left foot is pink, there is a faint dorsalis pedis pulse palpable, no focal areas of tenderness, no skin breakdown.. Vital Signs: 19:28 BP 134 / 71; Pulse 88; Resp 18; Temp 98.4(O); Pulse Ox 97% on R/A; Weight 54.43 kg; cm10 Height 5 ft. 5 in. ; Pain 9/10; 20:00 BP 135 / 71; Pulse 75; Resp 16; Pulse Ox 96% ; al5 20:30 BP 126 / 72; Pulse 77; Resp 15; Pulse Ox 96% ; al5 21:30 BP 160 / 84; Pulse 85; Resp 17; Pulse Ox 98% ; al5 19:28 Body Mass Index 19.97 (54.43 kg, 165.1 cm) cm10 19:28 Pain Scale: Adult cm10 MDM: 19:36 Medical Screening Exam initiated rt 22:54 Differential diagnosis: Postprocedural pain, claudication, acute arterial rt insufficiency. Data reviewed: vital signs, nurses notes, radiologic studies. Independent interpretation of the following test(s) in the Emergency Department CT Scan: My interpretation is Distal blood flow seen on my interpretation of CT scan images. Care significantly affected by the following chronic conditions: Peripheral arterial disease. Counseling: I had a detailed discussion with the patient and/or guardian regarding the historical points, exam findings, and any diagnostic results supporting the discharge/admit diagnosis, radiology results, the need for outpatient follow up. 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 07/26 19:48 Order name: Lower Ext Angio; Complete Time: 22:12 EDMS Administered Medications: No medications were administered Disposition Summary: 07/26/24 22:19 Discharge Ordered Notes: Location: Home rt Problem: new rt Symptoms: are unchanged rt Condition: Stable rt Diagnosis - Left foot pain rt Followup: rt - With: Private Physician - When: 2 - 3 days - Reason: Discharge Instructions: - Discharge Summary Sheet rt - Foot Pain rt Forms: - Medication Reconciliation Form rt - Antibiotic Education rt - Prescription Opioid Use rt - Patient Portal Instructions rt - Leadership Thank You Letter rt Signatures: Dispatcher [employer] EDAdriano Roy MD MD rt Lena Adorno RN RN cm10 Corrections: (The following items were deleted from the chart) 19:48 19:36 Abdomen Angio+CT.RAD.BRZ ordered. EDAR EDMS
--- NOTE | 2024-07-26 22:19 | ER ---
Nurse's Notes [facility] Name: Ubaldo Waldron Age: 54 yrs Sex: Male : 1970 Arrival Date: 07/26/2024 Time: 19:16 Bed 4 Private MD: Diagnosis: Left foot pain Presentation: 07/26 19:28 Chief complaint: Patient states: Had stent placed in left leg yesterday in [place] and cm10 continues to have numbness to left foot and ankle pain. Coronavirus screen: Client denies travel out of the [place] in the last 14 days. Ebola Screen: Patient denies travel to an Ebola-affected area in the 21 days before illness onset. Initial Sepsis Screen: Does the patient meet any 2 criteria? No. Patient's initial sepsis screen is negative. Does the patient have a suspected source of infection? No. Patient's initial sepsis screen is negative. Risk Assessment: Do you want to hurt yourself or someone else? Patient reports no desire to harm self or others. Onset of symptoms was July 26, 2024. 19:28 Method Of Arrival: Wheelchair cm10 19:28 Acuity: FRANCESCO 3 cm10 Triage Assessment: 19:33 General: Appears in no apparent distress. uncomfortable, Behavior is calm, cooperative. cm10 Pain: Complains of pain in left foot Pain currently is 9 out of 10 on a pain scale. Neuro: No deficits noted. Level of Consciousness is awake, alert, obeys commands, Oriented to person, place, time, situation, Appropriate for age. Neuro: Reports numbness in left foot. Respiratory: No deficits noted. Airway is patent Respiratory effort is even, unlabored, Respiratory pattern is regular, symmetrical. Historical: - Allergies: 19:30 NKA; cm10 - Home Meds: 19:30 amlodipine oral [Active]; Lisinopril Oral [Active]; cm10 - PMHx: 19:30 Congestive heart failure; Hypertensive disorder; cm10 - PSHx: 19:30 hernia (en); Stent in left leg; cm10 - Immunization history:: Adult Immunizations unknown. - Infectious Disease History:: Denies. - Social history:: Smoking status: Patient reports the use of cigarette tobacco products, smokes one pack cigarettes per day. - Family history:: not pertinent. Screenin:34 [facility] ED Fall Risk Assessment (Adult) History of falling in the last 3 months, vc1 including since admission No falls in past 3 months (0 pts) Confusion or Disorientation No (0 pts) Intoxicated or Sedated No (0 pts) Impaired Gait No (0 pts) Mobility Assist Device Used No (0 pt) Altered Elimination No (0 pt) Score/Fall Risk Level 0 - 2 = Low Risk Oriented to surroundings, Maintained a safe environment, Educated pt \T\ family on fall prevention, incl call for assistance when getting out of bed. Abuse screen: Denies threats or abuse. Nutritional screening: No deficits noted. Tuberculosis screening: No symptoms or risk factors identified. Assessment: 21:11 General: Appears in no apparent distress. comfortable, Behavior is calm, cooperative. hm5 Pain: Complains of pain in left leg. Neuro: Level of Consciousness is awake, alert, obeys commands, Oriented to person, place, time, situation. Cardiovascular: Capillary refill < 3 seconds Patient's skin is warm and dry. Respiratory: Airway is patent Respiratory effort is even, unlabored, Respiratory pattern is regular, symmetrical. GI: No signs and/or symptoms were reported involving the gastrointestinal system. : No signs and/or symptoms were reported regarding the genitourinary system. EENT: No signs and/or symptoms were reported regarding the EENT system. Derm: Skin is intact, is healthy with good turgor, Skin is pink, warm \T\ dry. normal. Musculoskeletal: Reports pain in left leg. 21:31 Reassessment: Patient appears in no apparent distress at this time. No changes from vc1 previously documented assessment. Patient and/or family updated on plan of care and expected duration. Pain level reassessed. Vital Signs: 19:28 BP 134 / 71; Pulse 88; Resp 18; Temp 98.4(O); Pulse Ox 97% on R/A; Weight 54.43 kg; cm10 Height 5 ft. 5 in. ; Pain 9/10; 20:00 BP 135 / 71; Pulse 75; Resp 16; Pulse Ox 96% ; al5 20:30 BP 126 / 72; Pulse 77; Resp 15; Pulse Ox 96% ; al5 21:30 BP 160 / 84; Pulse 85; Resp 17; Pulse Ox 98% ; al5 19:28 Body Mass Index 19.97 (54.43 kg, 165.1 cm) cm10 19:28 Pain Scale: Adult cm10 ED Course: 19:21 Patient arrived in ED. gm2 19:23 Adriano Gonzales MD is Attending Physician. rt 19:30 Triage completed. cm10 19:33 Arm band placed on left wrist. cm10 20:33 Desirae Rosario, RN is Primary Nurse. vc1 20:34 Patient has correct armband on for positive identification. Bed in low position. Call vc1 light in reach. Provided Education on: ultrasound. Pulse ox on. NIBP on. 20:46 Radiology exam delayed due to IV insertion attempt and/or patient not having sm9 appropriate IV at this time. 21:12 No provider procedures requiring assistance completed. hm5 21:49 Inserted saline lock: 20 gauge in right antecubital area, using aseptic technique. al5 Blood collected. Flushed with 10 mL NS. 21:56 Lower Ext Angio In Process Unspecified. EDMS 22:21 IV discontinued, intact, bleeding controlled, No redness/swelling at site. Pressure al5 dressing applied. Administered Medications: No medications were administered Medication: 20:34 VIS not applicable for this client. vc1 Outcome: 22:19 Discharge ordered by . rt 22:22 Discharged to home ambulatory, with significant other, al5 22:22 Condition: good 22:22 Discharge instructions given to patient, Instructed on discharge instructions, follow up and referral plans. Demonstrated understanding of instructions, follow-up care, 22:23 Patient left the ED. vc1 Signatures: Dispatcher [employer] EDMS Desirae Rosario, RN RN vc1 Adriano Gonzales MD MD rt Lena Adorno RN RN cm10 Lanette De La O gm2 Mirian Jones sm9 Camryn Herbert RN RN al5 Katerin Gutierrez, AMOL RN hm5 Corrections: (The following items were deleted from the chart) 22:21 20:34 BP 126 / 72; Pulse 79bpm; Resp 18bpm; Pulse Ox 96%; vc1 al5 22:21 21:31 BP 160 / 84; Pulse 83bpm; Resp 18bpm; Pulse Ox 98%; vc1 al5
[2024-07-26 23:18] VITALS: TEMP 98.4
[2024-07-26 23:21] VITALS: BP 160/84; O2SAT 98
== END 2024-07-26 22:23 | disposition home or self-care (01) ==
LOC: ER 19:16
DX: M79.672 Pain in left foot (principal); Z98.890 Other specified postprocedural states; I10 Essential (primary) hypertension; I50.9 Heart failure, unspecified; F17.210 Nicotine dependence, cigarettes, uncomplicated
CPT/HCPCS: 82565; 73706; 99284; Q9967

== ENCOUNTER 2024-07-28 12:04 | Emergency (ER) | payer BC ==
--- OUTSIDE RECORDS SUMMARY | 2024-07-28 12:10 | XMS REPORT | Continuity of Care Document ---
Author Name Unknown Address [address] [place] [address] Organization [facility] Address 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 Name Role Phone PCP, PATIENT DOES NOT HAVE A Primary Care Physic paris Unavailable Doctor Unassigned, [place] Attending Clinician U LINDA Blanco Attending Clinician Unavailable Linda Martell MD Attending Clinician [phone] LINDA MARTELL Admitting Clinician Unavailable Payers Payer Name Policy Type Policy Number Effective Date Expirati on Date Source Problems Condition Name Condition Details Condition Category Status Onset Date Resolution Date Last Treatment Date Treating Clinician Comments Source No known active problems No known active problems Disease [facility] Allergies, Adverse Reactions, Alerts Allergy Name Allergy Type Status Severity Reaction(s) Onset Date Inactive Date Treating Clinician Comments Source NO KNOWN ALLERGIE S Drug Class Active [facility] Social History Social Habit Start Date Stop Date Quantity Comments Source Gender identity [facility] Sexual orientation U [facility] Exposure to SARS-CoV-2 (event) 2022-03-19 00:00:00 2022-03-29 18:40:00 Not sure [facility] Sex Assigned At 1970 00:00:00 1970 00:00:00 [facility] Smoking Status Start Date Stop Date Source Tobacco smoking consumption unknown [facility] Medications Ordered Medication Name Filled Medication Name [...] 2-05 00:00: 00 06-11 00:00 :00 No [id number] Ryland De Guzman LISINOPRIL 30MG 2022-03 1-15 00:00: 00 Yes Ryland De Guzman TAKE 1 TABLET DAILY 2022-03 114 00:00: 00 Yes Ryland De Guzman AMLODIPINE 10MG 2022-0314 00:00: 00 Yes [id number] Ryland De Guzman TAKE 1 TABLET DAILY. [...] 0-09 00:00: 00 06-11 00:00 :00 No [id number] Ryland De Guzman TAKE 1 TABLET DAILY. [...] 06-11 00:00 :00 No 500 Ryland De Guzman TAKE 1 TABLET BY [...] 1 dose, On Sun03/29/22 at 1830, Routine [facility] LISINOPRIL 10MG 03-29 00:00: 00 Yes Ryland De Guzman lisinopriL 10 mg tablet 03-29 00:00: 00 Yes [id number] 10mg Take 1 tablet by mouth at bedtime. [facility] Immunizations Ordered Immunization Name Filled Immunization Name Date Status Comments Source Td (adult) preservative Td (adult) preservative 2016-11-15 00:00:00 Completed Ryland De Guzman Vital Signs Vital Name Observation Time Observation Value Comments S tomy Systolic blood pressure 2022-03-30 00:35:00 170 mm[Hg] [facility] hospital Diastolic blood pressure 2022-03-30 00:35:00 97 mm[Hg] [facility] acute hospital Heart rate 2022-03-30 00:35:00 67 /min [facility] Body temperature 2022-03-30 00:35:00 36.67 Leila [facility] Respiratory rate 2022-03-30 00:35:00 17 /min [facility] Oxygen saturation in Arterial blood by Pulse oximetry 2022-03-30 00:35:00 98 /min [facility] Body height 2022-03-29 23:33:00 162.6 cm [facility] Body weight 2022-03-29 23:33:00 50.803 kg [facility] BMI 2022-03-29 23:33:00 19.22 kg/m2 [facility] BP Systolic 2023-11-10 12:53:00 136 mm[Hg] Step hen F Gab BP Diastolic 2023-11-10 12:53:00 80 mm[Hg] Tapna phen F Gab Weight Measured 2023-11-10 12:53:00 [...] Gab Height Measured 2023-05-02 16:14:00 62.00 inches Rlyand F Gab Body Temperature 2023-05-02 16:14:00 98.10 [...] Source REFERRAL- REQUEST/RESPONSE 2022-10-02 05:01:00 Doctor Unassigned, [place] [facility] EKG-12 LEAD 2022-03-29 23:53:12 Linda Martell [facility] LIPASE 2022-03-29 23:44:00 Linda Martell [facility] TROPONIN I 2022-03-29 23:44:00 Linda Martell [facility] COMP. METABOLIC PANEL (55303) 2022-03-29 23:44:00 Linda Martell [facility] CBC WITH DIFF 2022-03-29 23:44:00 Linda Martell [facility] XR CHEST 1 VW 2022-03-29 23:39:50 Linda Martell [facility] NOTICE OF PRIVACY PRACTICES 2022-03-29 23:20:45 Doctor Unassigned, [place] [facility] CONSENT/REFUSAL FOR DIAGNOSIS AND TREATMENT 2022-03-29 23:19:19 Doctor Unassigned, [place] [facility] Encounters Start Date/Time End Date/Time Encounter Type Admission Type Attending Clinicians Care Facility Care Department Encounter ID Source 2023-11-10 12:49:09 2023-11-10 12:49:09 Outpatient SFA [facility] [id number] Ryland De Guzman 2023-11-10 00:00:00 2023-11-10 00:00:00 Outpatient Visit [facility] [id number] Ryland De Guzman 2023-11-02 14:15:37 2023-11-02 14:15:37 Outpatient SFA [facility] 0823 Ryland De Guzman 2023-10-26 16:28:33 2023-10-26 16:28:33 Outpatient SFA [facility] 0816 Ryland De Guzman 2023-10-26 00:00:00 2023-10-26 00:00:00 Outpatient Visit [facility] [id number] Ryland De Guzman 2023-09-11 16:59:51 2023-09-11 16:59:51 Outpatient SFA [facility] [id number] Ryland De Guzman 2023-09-11 00:00:00 2023-09-11 00:00:00 Outpatient Visit S[facility] [id number] Ryland De Guzman 2023-08-14 10:55:52 2023-08-14 10:55:52 Outpatient SFA SFA [id number] Ryland De Guzman 2023-08-14 00:00:00 2023-08-14 00:00:00 Outpatient Visit SFA [id number] Ryland De Guzman 2023-05-30 [...] De Guzman 2022-12-16 12:56:25 2022-12-16 12:56:25 Outpatient [facility] [id number] Ryland De Guzman 2022-10-25 11:44:25 2022-10-25 11:44:25 Outpatient [facility] [id number] Ryland De Guzman 2022-10-02 00:00:00 2022-10-02 00:00:00 Orders Only Doctor Unassigned, [place] [facility] 1..840.114 [id number] [facility] 2022-09-26 16:14:39 2022-09-26 16:14:39 Outpatient [facility] 18 Ryland De Guzman 2022-07-05 16:30:10 2022-07-05 16:30:10 Outpatient [facility] [id number] Ryland Daniels Gab 2022-06-20 16:46:16 2022-06-20 16:46:16 Outpatient [facility] [id number] Ryland Daniels Gab 2022-06-06 16:32:36 2022-06-06 16:32:36 Outpatient [facility] [id number] Ryland De Guzman 2022-05-22 16:44:03 2022-05-22 16:44:03 Outpatient [facility] [id number] Ryland De Guzman 2022-03-29 17:35:00 2022-03-29 19:07:00 Emergency X LINDA MARTELL [facility] ERT [id number] [facility] 2022-03-29 17:35:00 2022-03-29 19:07:00 Emergency Linda Martell [facility] 1..840.114 [id number] [facility] 2022-03-29 16:18:33 2022-03-29 16:18:33 Outpatient [facility] [id number] Ryland F Gab Results Test Description Test Time Test Comments Results Result Co mments Source CBC W/AUTO DIFF WITH [id number] 01:35:28* Test Item Value Reference Range Interpretation [...] = 1065) 0.0 /100 WBC'S See_Comment [Automated Shotlsta ge] The system which generated this result [...] 0.00-0.10 ABS NUCLEATED RBCS (test code = 33611) 0.00 K/UL 0.00-0.11 CBC W/AUTO [id number] 00:00:00* Test Item Value Reference Range Interpretation [...] ABS NUCLEATED RBCS (test cod e = 01823) 0.00 K/UL Ryland Daniels AustinCOMPREHENSIVE METABOLIC [id number] 00:00:00* Test Item Value Reference Range Interpretation Comme nts GLUCOSE (test code = 2217) 106 MG/DL BUN (test code = 2208) 19 MG/DL CREATININE (test code = 2214) 1.20 MG/DL eGFR (2020 CKD-EPI) (test co de = 08159) 72 ML/MIN/1.73 CALC BUN/CREAT (test code = [...] 2219) 20 U/L Ryland De GuzmanCBC W/AUTO [id number] 00:00:00* Test Item Value Reference Range Interpretation [...] ABS NUCLEATED RBCS (test cod e = 52657) 0.00 K/UL Ryland De GuzmanCOMPREHENSIVE METABOLIC [id number] 00:00:00* Test Item Value Reference Range Interpretation Comme nts GLUCOSE (test code = 2217) 106 MG/DL BUN (test code = 2208) 19 MG/DL CREATININE (test code = 2214) 1.20 MG/DL eGFR (2020 CKD-EPI) (test co de = 18420) 72 ML/MIN/1.73 CALC BUN/CREAT (test code = [...] code = 2219) 20 U/L Ryland Daniels CarlsbadLIP[place] [id number] 06:55:08* Test Item Value Reference Range Interpretation [...] = 2238) 1.17 RATIO <3.55 COMPREHENSIVE METABOLIC [id number] 06:55:08* Test Item Value Reference Range Interpretation Comme nts GLUCOSE (test code = 2217) 75 MG/DL 70-99 BUN (test code = 2208) 18 MG/DL 6-20 CREATININE (test code = 2213) 1.29 MG/DL 0.80-1.40 eGFR (2020 CKD-EPI) (test co de = 72632) 66 ML/MIN/1.73 >60 CALC BUN/CREAT (test code [...] code = 2218) 25 U/L 5-50 HEMOGLOBIN [id number] 03:29:46* Test Item Value Reference Range Interpretation Comme nts HEMOGLOBIN A1c (test code = 31422) 5.6 % 4.2-5.6 CBC W/AUTO DIFF WITH [id number] 02:47:07* Test Item Value Reference Range Interpretation [...] 0.00-0.10 ABS NUCLEATED RBCS (test code = 72452) 0.00 K/UL 0.00-0.11 UNLESS OTHER TEJEDA INDICATED, ALL TESTING PERFORMED AT [facility] [address] [place] [address] GENERAL ADMINISTRATOR: DAVID MANRIQUEZ M.D. CLIA NUMBER [id number] [facility] [place]. [id number] COMPREHENSIVE METABOLIC [id number] 00:00:00* Test Item Value Reference Range Interpretation Comme nts GLUCOSE (test code = 2217) 75 MG/DL BUN (test code = 2208) 18 MG/DL CREATININE (test code = 2214) 1.29 MG/DL eGFR (2020 CKD-EPI) (test co de = 59398) 66 ML/MIN/1.73 CALC BUN/CREAT (test code = [...] code = 2219) 25 U/L Ryland Daniels [facility] W/AUTO [id number] 00:00:00* Test Item Value Reference Range Interpretation [...] ABS NUCLEATED RBCS (test cod e = 87870) 0.00 K/UL Ryland De GuzmanHEMOGLOBIN [id number] 00:00:00* Test Item Value Reference Range Interpretation Comme harvinder HEMOGLOBIN A1c (test code = 32116) 5.6 % Ryland De GuzmanLIPID [id number] 00:00:00* Test Item Value Reference Range Interpretation Comme nts CHOLESTEROL (test code = 2210) 167 MG/DL TRIGLYCERIDES (test code = 2232) 188 MG/DL HDL CHOLESTEROL (test code = 2220) 64 MG/DL CALC LDL CHOL (test code = 2237) 75 MG/DL RISK RATIO LDL/HDL (test cod e = 2238) 1.17 RATIO Ryland De GuzmanCOMPREHENSIVE METABOLIC [id number] 00:00:00* Test Item Value Reference Range Interpretation Comme nts GLUCOSE (test code = 2217) 75 MG/DL BUN (test code = 2208) 18 MG/DL CREATININE (test code = 2214) 1.29 MG/DL eGFR (2020 CKD-EPI) (test co de = 44180) 66 ML/MIN/1.73 CALC BUN/CREAT (test code = [...] 2219) 25 U/L Ryland De GuzmanCBC W/AUTO [id number] 00:00:00* Test Item Value Reference Range Interpretation [...] ABS NUCLEATED RBCS (test cod e = 80055) 0.00 K/UL Ryland De GuzmanHEMOGLOBIN [id number] 00:00:00* Test Item Value Reference Range Interpretation Comme nts HEMOGLOBIN A1c (test code = 03590) 5.6 % Ryland Daniels AustinLIPID [id number] 00:00:00* Test Item Value Reference Range Interpretation Comme nts CHOLESTEROL (test code = 2210) 167 MG/DL TRIGLYCERIDES (test code = 2232) 188 MG/DL HDL CHOLESTEROL (test code = 2220) 64 MG/DL CALC LDL CHOL (test code = 2237) 75 MG/DL RISK RATIO LDL/HDL (test cod e = 2238) 1.17 RATIO Ryland De GuzmanCOMPREHENSIVE METABOLIC [id number] 00:00:00* Test Item Value Reference Range Interpretation Comme nts GLUCOSE (test code = 2217) 75 MG/DL BUN (test code = 2208) 18 MG/DL CREATININE (test code = 2214) 1.29 MG/DL eGFR (2020 CKD-EPI) (test co de = 22306) 66 ML/MIN/1.73 CALC BUN/CREAT (test code = [...] code = 2219) 25 U/L Ryland Daniels [facility] W/AUTO [id number] 00:00:00* Test Item Value Reference Range Interpretation [...] ABS NUCLEATED RBCS (test cod e = 48892) 0.00 K/UL Ryland De GuzmanHEMOGLOBIN [id number] 00:00:00* Test Item Value Reference Range Interpretation Comme nts HEMOGLOBIN A1c (test code = 11103) 5.6 % Ryland De GuzmanLIPID [id number] 00:00:00* Test Item Value Reference Range Interpretation Comme nts CHOLESTEROL (test code = 2210) 167 MG/DL TRIGLYCERIDES (test code = 2232) 188 MG/DL HDL CHOLESTEROL (test code = 2220) 64 MG/DL CALC LDL CHOL (test code = 2237) 75 MG/DL RISK RATIO LDL/HDL (test cod e = 2238) 1.17 RATIO Ryland De GuzmanCOMPREHENSIVE METABOLIC [id number] 00:00:00* Test Item Value Reference Range Interpretation Comme nts GLUCOSE (test code = 2217) 75 MG/DL BUN (test code = 2208) 18 MG/DL CREATININE (test code = 2214) 1.29 MG/DL eGFR (2020 CKD-EPI) (test co de = 85234) 66 ML/MIN/1.73 CALC BUN/CREAT (test code = [...] 2219) 25 U/L Ryland De GuzmanCBC W/AUTO [id number] 00:00:00* Test Item Value Reference Range Interpretation [...] ABS NUCLEATED RBCS (test cod e = 90064) 0.00 K/UL Ryland De GuzmanHEMOGLOBIN [id number] 00:00:00* Test Item Value Reference Range Interpretation Comme nts HEMOGLOBIN A1c (test code = 03130) 5.6 % Ryland De GuzmanLIPID [id number] 00:00:00* Test Item Value Reference Range Interpretation Comme nts CHOLESTEROL (test code = 2210) 167 MG/DL TRIGLYCERIDES (test code = 2232) 188 MG/DL HDL CHOLESTEROL (test code = 2220) 64 MG/DL CALC LDL CHOL (test code = 2237) 75 MG/DL RISK RATIO LDL/HDL (test cod e = 2238) 1.17 RATIO Ryland [id number] 05:18:43* Test Item Value Reference Range Interpretation Comme nts MAGNESIUM (test code = 2226) 2.1 MG/DL 1.6-2.6 UNLESS OTHERWISE INDICATED, ALL TESTING PERFORMED AT [facility] [address] [place] [address] GENERAL ADMINISTRATOR: DAVID MANRIQUEZ M.D. IA NUMBER [id number] [facility] [place]. [id number] COMPREHENSIVE METABOLIC [id number] 05:09:34* Test Item Value Reference Range Interpretation Comme nts GLUCOSE (test code = 2217) 134 MG/DL 70-99 H BUN (test code = 2208) 12 MG/DL 6-20 CREATININE (test code = 2214) 1.38 MG/DL 0.80-1.40 eGFR (2020 CKD-EPI) (test code = 31838) 62 ML/MIN/1.73 >60 CALC BUN/CREAT (test code [...] 18 U/L 5-50 CBC W/AUTO DIFF WITH [id number] 02:19:23* Test Item Value Reference Range Interpretation [...] 0.00-0.10 ABS NUCLEATED RBCS (test code = 50532) 0.00 K/UL 0.00-0.11 COMPREHENSIVE METABOLIC [id number] 00:00:00* Test Item Value Reference Range Interpretation Comme nts GLUCOSE (test code = 2217) 134 MG/DL BUN (test code = 2208) 12 MG/DL CREATININE (test code = 2214) 1.38 MG/DL eGFR (2020 CKD-EPI) (test co de = 93120) 62 ML/MIN/1.73 CALC BUN/CREAT (test code = [...] code = 2219) 18 U/L Ryland De [id number] 00:00:00* Test Item Value Reference Range Interpretation Comme nts MAGNESIUM (test code = 2226) 2.1 MG/DL Ryland De GuzmanCBC W/AUTO [id number] 00:00:00* Test Item Value Reference Range Interpretation [...] ABS NUCLEATED RBCS (test cod e = 78735) 0.00 K/UL Ryland Daniels GabCOMPREHENSIVE METABOLIC [id number] 00:00:00* Test Item Value Reference Range Interpretation Comme nts GLUCOSE (test code = 2217) 134 MG/DL BUN (test code = 2208) 12 MG/DL CREATININE (test code = 2214) 1.38 MG/DL eGFR (2020 CKD-EPI) (test co de = 69654) 62 ML/MIN/1.73 CALC BUN/CREAT (test code = [...] code = 2219) 18 U/L Ryland De [id number] 00:00:00* Test Item Value Reference Range Interpretation Comme nts MAGNESIUM (test code = 2226) 2.1 MG/DL Ryland De GuzmanCBC W/AUTO [id number] 00:00:00* Test Item Value Reference Range Interpretation [...] ABS NUCLEATED RBCS (test cod e = 93152) 0.00 K/UL Ryland De GuzmanCOMPREHENSIVE METABOLIC [id number] 00:00:00* Test Item Value Reference Range Interpretation Comme nts GLUCOSE (test code = 2217) 134 MG/DL BUN (test code = 2208) 12 MG/DL CREATININE (test code = 2214) 1.38 MG/DL eGFR (2020 CKD-EPI) (test co de = 14617) 62 ML/MIN/1.73 CALC BUN/CREAT (test code = [...] code = 2219) 18 U/L Ryland De [id number] 00:00:00* Test Item Value Reference Range Interpretation Comme nts MAGNESIUM (test code = 2226) 2.1 MG/DL Ryland De GuzmanCBC W/AUTO [id number] 00:00:00* Test Item Value Reference Range Interpretation [...] ABS NUCLEATED RBCS (test cod e = 58176) 0.00 K/UL Ryland De GuzamnCOMPREHENSIVE METABOLIC [id number] 00:00:00* Test Item Value Reference Range Interpretation Comme nts GLUCOSE (test code = 2217) 134 MG/DL BUN (test code = 2208) 12 MG/DL CREATININE (test code = 2214) 1.38 MG/DL eGFR (2020 CKD-EPI) (test co de = 76031) 62 ML/MIN/1.73 CALC BUN/CREAT (test code = [...] code = 2219) 18 U/L Ryland De [id number] 00:00:00* Test Item Value Reference Range Interpretation Comme nts MAGNESIUM (test code = 2226) 2.1 MG/DL Ryland De GuzmanCBC W/AUTO [id number] 00:00:00* Test Item Value Reference Range Interpretation [...] ABS NUCLEATED RBCS (test cod e = 04434) 0.00 K/UL Ryland De GuzmanVITAMIN [id number] 00:00:00* Test Item Value Reference Range Interpretation Comme [facility] VITAMIN B-12 (test code = 2840) TEST NOT PERFORMED PG/ML Ryland De GuzmanSEDIMENTATION [id number] 00:00:00* Test Item Value Reference Range Interpretation Comme nts SEDIMENTATION RATE (test code = 1017) TEST NOT PERFORMED MM/HOUR Ryland De GuzmanC-REACTIVE [id number] 00:00:00* Test Item Value Reference Range Interpretation Comme nts C-REACTIVE PROTEIN (test code = 3513) TEST NOT PERFORMED MG/DL Ryland De GuzmanURIC [id number] 00:00:00* Test Item Value Reference Range Interpretation Comme nts URIC ACID (test code = 2233) TEST NOT PERFORMED MG/DL Ryland De GuzmanVITAMIN D, 25 [id number] 00:00:00* Test Item Value Reference Range Interpretation Comme nts VITAMIN D, 25 OH (test code = 4958) TEST NOT PERFORMED NG/ML Ryland De GuzmanANA AUTOIMMUNE [id number] 00:00:00* Test Item Value Reference Range Interpretation Comme nts ANTI-NUCLEAR ANTIBODIES (test code = 3506) TEST NOT PERFORMED INNA PATTERN (REPORTED TITER) (test code = 93252) TEST NOT PERFORMED HOMOGENEOUS (test code = 04665) TEST NOT PERFORMED TITER SPECKLED (test code = 138635) TEST NOT PERFORMED TITER DENSE FINE SPECKLED (test code = 93501) TEST NOT PERFORMED TITER CENTROMERE (test code = 482113) TEST NOT PERFORMED TITER COARSE SPECKLED (test code = 744832) TEST NOT PERFORMED TITER DISCRETE NUCLEAR DOTS (test code = 013192) TEST NOT PERFORMED TITER NUCLEOLAR (test code = 443304) TEST NOT PERFORMED TITER NUCLEAR MEMBRANE (test code = 502908) TEST NOT PERFORMED TITER CYTO. RETICULAR (GUICHO) (test code = 741684) TEST NOT PERFORMED COMMENTS (test code = 102591) TEST NOT PERFORMED METHOD (test code = 73204) TEST NOT PERFORMED SJOGREN'S SS-A ANTIBODY (test code = 84802) TEST NOT PERFORMED AI SJOGREN'S SS-B ANTIBODY (test code = 23550) TEST NOT PERFORMED AI JUAREZ (Sm) ANTIBODY (test code = 05128) TEST NOT PERFORMED AI OPTICAL MECHANIC ANTIBODY (test code = 53773) TEST NOT PERFORMED AI SCL-70 ANTIBODY (test code = 4606) TEST NOT PERFORMED AI Jessie-1 ANTIBODY (test code = 4680) TEST NOT PERFORMED AI CENTROMERE B ANTIBODY (test code = 4630) TEST NOT PERFORMED AI RIBOSOMAL P ANTIBODY (test code = 44907) TEST NOT PERFORMED AI CHROMATIN ANTIBODY (test code = 71981) TEST NOT PERFORMED AI THYROID PEROXIDASE AB (test code = 87641) TEST NOT PERFORMED IU/ML COMPLEMENT C3 (test code = 3509) TEST NOT PERFORMED MG/DL COMPLEMENT C4 (test code = 3510) TEST NOT PERFORMED MG/DL RHEUMATOID FACTOR, QUANT (test code = 3502) TEST NOT PERFORMED IU/ML dsDNA ANTIBODY (test code = 4287) TEST NOT PERFORMED IU/ML CCP IgG (test code = 28796) TEST NOT PERFORMED U/ML Ryland Frances GabVITAMIN [id number] 00:00:00* Test Item Value Reference Range Interpretation Comme nts VITAMIN B-12 (test code = 2840) TEST NOT PERFORMED PG/ML Ryland Frances GabSEDIMENTATION [id number] 00:00:00* Test Item Value Reference Range Interpretation Comme nts SEDIMENTATION RATE (test code = 1017) TEST NOT PERFORMED MM/HOUR Ryland Frances GabC-REACTIVE [id number] 00:00:00* Test Item Value Reference Range Interpretation Comme nts C-REACTIVE PROTEIN (test code = 3513) TEST NOT PERFORMED MG/DL Ryland De GuzmanURIC [id number] 00:00:00* Test Item Value Reference Range Interpretation Comme harvinder URIC ACID (test code = 2233) TEST NOT PERFORMED MG/DL Ryland De GuzmanVITAMIN D, 25 [id number] 00:00:00* Test Item Value Reference Range Interpretation Comme harvinder VITAMIN D, 25 OH (test code = 4958) TEST NOT PERFORMED NG/ML Ryland Marvin AUTOIMMUNE [id number] 00:00:00* Test Item Value Reference Range Interpretation Comme nts ANTI-NUCLEAR ANTIBODIES (test code = 3506) TEST NOT PERFORMED INNA PATTERN (REPORTED TITER) (test code = 06808) TEST NOT PERFORMED HOMOGENEOUS (test code = 99901) TEST NOT PERFORMED TITER SPECKLED (test code = 488850) TEST NOT PERFORMED TITER DENSE FINE SPECKLED (test code = 71935) TEST NOT PERFORMED TITER CENTROMERE (test code = 290139) TEST NOT PERFORMED TITER COARSE SPECKLED (test code = 472251) TEST NOT PERFORMED TITER DISCRETE NUCLEAR DOTS (test code = 130561) TEST NOT PERFORMED TITER NUCLEOLAR (test code = 650858) TEST NOT PERFORMED TITER NUCLEAR MEMBRANE (test code = 349940) TEST NOT PERFORMED TITER CYTO. RETICULAR (GUICHO) (test code = 651498) TEST NOT PERFORMED COMMENTS (test code = 663063) TEST NOT PERFORMED METHOD (test code = 84551) TEST NOT PERFORMED SJOGREN'S SS-A ANTIBODY (test code = 93957) TEST NOT PERFORMED AI SJOGREN'S SS-B ANTIBODY (test code = 76123) TEST NOT PERFORMED AI JUAREZ (Sm) ANTIBODY (test code = 98982) TEST NOT PERFORMED AI OPTICAL MECHANIC ANTIBODY (test code = 06601) TEST NOT PERFORMED AI SCL-70 ANTIBODY (test code = 4606) TEST NOT PERFORMED AI Jessie-1 ANTIBODY (test code = 4680) TEST NOT PERFORMED AI CENTROMERE B ANTIBODY (test code = 4630) TEST NOT PERFORMED AI RIBOSOMAL P ANTIBODY (test code = 70305) TEST NOT PERFORMED AI CHROMATIN ANTIBODY (test code = 06495) TEST NOT PERFORMED AI THYROID PEROXIDASE AB (test code = 72914) TEST NOT PERFORMED IU/ML COMPLEMENT C3 (test code = 3509) TEST NOT PERFORMED MG/DL COMPLEMENT C4 (test code = 3510) TEST NOT PERFORMED MG/DL RHEUMATOID FACTOR, QUANT (test code = 3502) TEST NOT PERFORMED IU/ML dsDNA ANTIBODY (test code = 4287) TEST NOT PERFORMED IU/ML CCP IgG (test code = 53922) TEST NOT PERFORMED U/ML Ryland De GuzmanVITAMIN [id number] 00:00:00* Test Item Value Reference Range Interpretation Comme [facility] VITAMIN B-12 (test code = 2840) TEST NOT PERFORMED PG/ML Ryland Daniels AustinSEDIMENTATION [id number] 00:00:00* Test Item Value Reference Range Interpretation Comme nts SEDIMENTATION RATE (test code = 1017) TEST NOT PERFORMED MM/HOUR Ryland Daniels AustinC-REACTIVE [id number] 00:00:00* Test Item Value Reference Range Interpretation Comme nts C-REACTIVE PROTEIN (test code = 3513) TEST NOT PERFORMED MG/DL Ryland De GuzmanURIC [id number] 00:00:00* Test Item Value Reference Range Interpretation Comme nts URIC ACID (test code = 2233) TEST NOT PERFORMED MG/DL Ryland De GuzmanVITAMIN D, 25 [id number] 00:00:00* Test Item Value Reference Range Interpretation Comme [facility] VITAMIN D, 25 OH (test code = 4958) TEST NOT PERFORMED NG/ML Ryland De GuzmanANA AUTOIMMUNE [id number] 00:00:00* Test Item Value Reference Range Interpretation Comme nts ANTI-NUCLEAR ANTIBODIES (test code = 3506) TEST NOT PERFORMED INNA PATTERN (REPORTED TITER) (test code = 33580) TEST NOT PERFORMED HOMOGENEOUS (test code = 87204) TEST NOT PERFORMED TITER SPECKLED (test code = 031515) TEST NOT PERFORMED TITER DENSE FINE SPECKLED (test code = 49169) TEST NOT PERFORMED TITER CENTROMERE (test code = 239949) TEST NOT PERFORMED TITER COARSE SPECKLED (test code = 225311) TEST NOT PERFORMED TITER DISCRETE NUCLEAR DOTS (test code = 713446) TEST NOT PERFORMED TITER NUCLEOLAR (test code = 269246) TEST NOT PERFORMED TITER NUCLEAR MEMBRANE (test code = 380393) TEST NOT PERFORMED TITER CYTO. RETICULAR (GUICHO) (test code = 819656) TEST NOT PERFORMED COMMENTS (test code = 977270) TEST NOT PERFORMED METHOD (test code = 02854) TEST NOT PERFORMED SJOGREN'S SS-A ANTIBODY (test code = 70716) TEST NOT PERFORMED AI SJOGREN'S SS-B ANTIBODY (test code = 85553) TEST NOT PERFORMED AI JUAREZ (Sm) ANTIBODY (test code = 92454) TEST NOT PERFORMED AI OPTICAL MECHANIC ANTIBODY (test code = 15509) TEST NOT PERFORMED AI SCL-70 ANTIBODY (test code = 4606) TEST NOT PERFORMED AI Jessie-1 ANTIBODY (test code = 4680) TEST NOT PERFORMED AI CENTROMERE B ANTIBODY (test code = 4630) TEST NOT PERFORMED AI RIBOSOMAL P ANTIBODY (test code = 75456) TEST NOT PERFORMED AI CHROMATIN ANTIBODY (test code = 60705) TEST NOT PERFORMED AI THYROID PEROXIDASE AB (test code = 59645) TEST NOT PERFORMED IU/ML COMPLEMENT C3 (test code = 3509) TEST NOT PERFORMED MG/DL COMPLEMENT C4 (test code = 3510) TEST NOT PERFORMED MG/DL RHEUMATOID FACTOR, QUANT (test code = 3502) TEST NOT PERFORMED IU/ML dsDNA ANTIBODY (test code = 4287) TEST NOT PERFORMED IU/ML CCP IgG (test code = 63567) TEST NOT PERFORMED U/ML Ryland De GuzmanVITAMIN [id number] 00:00:00* Test Item Value Reference Range Interpretation Comme nts VITAMIN B-12 (test code = 2840) TEST NOT PERFORMED PG/ML Ryland De GuzmanSEDIMENTATION [id number] 00:00:00* Test Item Value Reference Range Interpretation Comme nts SEDIMENTATION RATE (test code = 1017) TEST NOT PERFORMED MM/HOUR Ryland F AustinC-REACTIVE [id number] 00:00:00* Test Item Value Reference Range Interpretation Comme nts C-REACTIVE PROTEIN (test code = 3513) TEST NOT PERFORMED MG/DL Ryland Frances AustinURIC [id number] 00:00:00* Test Item Value Reference Range Interpretation Comme nts URIC ACID (test code = 2233) TEST NOT PERFORMED MG/DL Ryland F AustinVITAMIN D, 25 [id number] 00:00:00* Test Item Value Reference Range Interpretation Comme nts VITAMIN D, 25 OH (test code = 4958) TEST NOT PERFORMED NG/ML Ryland Frances De GuzmanANA AUTOIMMUNE [id number] 00:00:00* Test Item Value Reference Range Interpretation Comme nts ANTI-NUCLEAR ANTIBODIES (test code = 3506) TEST NOT PERFORMED INNA PATTERN (REPORTED TITER) (test code = 68331) TEST NOT PERFORMED HOMOGENEOUS (test code = 09154) TEST NOT PERFORMED TITER SPECKLED (test code = 691515) TEST NOT PERFORMED TITER DENSE FINE SPECKLED (test code = 01036) TEST NOT PERFORMED TITER CENTROMERE (test code = 133947) TEST NOT PERFORMED TITER COARSE SPECKLED (test code = 934516) TEST NOT PERFORMED TITER DISCRETE NUCLEAR DOTS (test code = 996162) TEST NOT PERFORMED TITER NUCLEOLAR (test code = 367240) TEST NOT PERFORMED TITER NUCLEAR MEMBRANE (test code = 660305) TEST NOT PERFORMED TITER CYTO. RETICULAR (GUICHO) (test code = 644896) TEST NOT PERFORMED COMMENTS (test code = 467642) TEST NOT PERFORMED METHOD (test code = 11129) TEST NOT PERFORMED SJOGREN'S SS-A ANTIBODY (test code = 05495) TEST NOT PERFORMED AI SJOGREN'S SS-B ANTIBODY (test code = 05193) TEST NOT PERFORMED AI JUAREZ (Sm) ANTIBODY (test code = 72048) TEST NOT PERFORMED AI OPTICAL MECHANIC ANTIBODY (test code = 46474) TEST NOT PERFORMED AI SCL-70 ANTIBODY (test code = 4606) TEST NOT PERFORMED AI Jessie-1 ANTIBODY (test code = 4680) TEST NOT PERFORMED AI CENTROMERE B ANTIBODY (test code = 4630) TEST NOT PERFORMED AI RIBOSOMAL P ANTIBODY (test code = 01231) TEST NOT PERFORMED AI CHROMATIN ANTIBODY (test code = 65946) TEST NOT PERFORMED AI THYROID PEROXIDASE AB (test code = 58874) TEST NOT PERFORMED IU/ML COMPLEMENT C3 (test code = 3509) TEST NOT PERFORMED MG/DL COMPLEMENT C4 (test code = 3510) TEST NOT PERFORMED MG/DL RHEUMATOID FACTOR, QUANT (test code = 3502) TEST NOT PERFORMED IU/ML dsDNA ANTIBODY (test code = 4287) TEST NOT PERFORMED IU/ML CCP IgG (test code = 11160) TEST NOT PERFORMED U/ML Ryland Marvin AUTOIMMUNE [id number] 00:23:01* Test Item Value Reference Range Interpretation Comments ANTI-NUCLEAR ANTIBODIES (test code = 3506) NEGATIVE NEGATIVE INNA PATTERN (REPORTED TITER) (test code = 25362) SEE BELOW HOMOGENEOUS (test code = 04140) NEGATIVE TITER NEGATIVE SPECKLED (test code = 504538) NEGATIVE TITER NEGATIVE DENSE FINE SPECKLED (test code = 16476) NEGATIVE TITER NEGATIVE CENTROMERE (test code = 963467) NEGATIVE TITER NEGATIVE COARSE SPECKLED (test code = 623146) NEGATIVE TITER NEGATIVE DISCRETE NUCLEAR DOTS (test code = 315982) NEGATIVE TITER NEGATIVE NUCLEOLAR (test code = 996378) NEGATIVE TITER NEGATIVE NUCLEAR MEMBRANE (test code = 706904) NEGATIVE TITER NEGATIVE CYTO. RETICULAR (GUICHO) (test code = 374453) NEGATIVE NEGATIVE COMMENTS (test code = 594671) NONE METHOD (test code = 63210) (NOTE) TESTING PERFORME D BY [employer] IFA PLATFORM.THE METHOD INCLUDES A SCREEN THRESHOLD OF 1:80, DIGITIZED AND COMPUTER ALGORITHM-ASSISTED INTERPRETATION OF TITERS AND DIGITAL PATTERNS, AND HEp-2 CELL LINE SUBSTRATE. ADDITIONAL UNUSUAL PATTERNS WILL BE GIVEN COMMENTS.FOR MORE INFORMATION, SEE [email or web address] - Financial Reconciliation/INNA-Testing SJOGREN'S SS-A ANTIBODY (test code = 63692) <0.2 AI <1.0 SJOGREN'S SS-B ANTIBODY (test code = 74097) <0.2 AI <1.0 JUAREZ (Sm) ANTIBODY (test code = 73604) <0.2 AI <1.0 OPTICAL MECHANIC ANTIBODY (test code = 67995) <0.2 AI <1.0 SCL-70 ANTIBODY (test code = 4606) <0.2 AI <1.0 Jessie-1 ANTIBODY (test code = 4680) <0.2 AI <1.0 CENTROMERE B ANTIBODY (test code = 4630) <0.2 AI <1.0 RIBOSOMAL P ANTIBODY (test code = 84450) <0.2 AI <1.0 CHROMATIN ANTIBODY (test code = 25111) <0.2 AI <1.0 THYROID PEROXIDASE AB (test code = 17730) <9 IU/ML See_Comment EFFECTIVE 2022, NEW REFERENCE RANGE CHANGE ASSOCIATEDWITH CHANGE IN METHODOLOGY.NEW METHODOLOGY IS SCONTO DIGITALE ELECTROCHEMILUMESCENCE IMMUNOASSAY(ECLIA). FOR MORE INFORMATION, [email or web address] - Financial Reconciliation/ [email or web address] [Automated message] The system which generated this [...] IU/ML >=10.0 CCP IgG (test code = 17784) <0.5 U/ML <3.0 INTERPRETIVE INFORMATION INTERPRETATION RESULT NEGATIVE <3.0 U/ML POSITIVE >=3.0 U/ML VITAMIN [id number] 06:49:09* Test Item Value Reference Range Interpretation Comme [facility] VITAMIN B-12 (test code = 2840) 421 PG/ML 200-950 C-REACTIVE [id number] 06:40:23* Test Item Value Reference Range Interpretation Comme [facility] C-REACTIVE PROTEIN (test cod e = 3513) <0.3 MG/DL <0.5 VITAMIN D, 25 [id number] 06:20:42* Test Item Value Reference Range Interpretation Comme [facility] VITAMIN D, 25 OH (test code [...] . . . . NG/ML 30-100 URIC [id number] 06:04:29* Test Item Value Reference Range Interpretation Comme nts URIC ACID (test code = 2233) 4.5 MG/DL 3.7-8.0 UNLESS OTHERWISE INDICATED, ALL TESTING PERFORMED AT [facility] [address] [place] [id number] GENERAL ADMINISTRATOR: DAVID MANRIQUEZ M.D. CLIA NUMBER [id number] [facility] [place]. [id number] SEDIMENTATION [id number] 05:04:31* Test Item Value Reference Range Interpretation Comme nts SEDIMENTATION RATE (test cod e = 1017) 2 MM/HOUR 0-15 TROPONIN [id number] 00:15:45* Test Item Value Reference Range Interpretation Comments TROPONIN I (test code = 5646526404) 0.005 ng/mL See_Comment [Automated message] The system [...] of biotin. Lab Interpretation (test code = 28081-0) Normal [facility]. METABOLIC PANEL (94017)2022-03-30 00:07:03* Test Item Value Reference Range Interpretation Comme nts NA (test code = 8316483266) 133 mmol/L 135-145 L K (test code = 2688306023) 4.2 mmol/L 3.5-5.0 CL (test code = 3159627726) 100 mmol/L 98-108 CO2 TOTAL (test code = 8625568460) 26 mmol/L 23-31 AGAP (test code = 4668170135) 2-16 BUN (test code = 0700538239) 10 mg/dL 7-23 GLUCOSE (test code = 7512503392) 96 mg/dL 70-110 CREATININE (test code = 1722270142) 0.77 mg/dL 0.60-1.25 TOTAL BILI (test code = 2546080489) 1.0 mg/dL 0.1-1.1 CALCIUM (test code = 7782810502) 9.2 mg/dL 8.6-10.6 T PROTEIN (test code = 0025750436) 7.1 g/dL 6.3-8.2 ALBUMIN (test code = 5821560278) 4.3 g/dL 3.5-5.0 ALK PHOS (test code = 5674872687) 84 U/L 34-122 ALTv (test code = 1742-6) 24 U/L 5-50 AST(SGOT) (test code = 7319503765) 31 U/L 13-40 eGFR (test code = 4104683501) mL/min/1.73m2 ROBERTO CARLOS (test code = ROBERTO [...] imaging tests). Lab Interpretation (test code = 49636-4) [facility] 00:07:03* Test Item Value Reference Range Interpretation Comme nts LIPASE (test code = 8502722407) 107 U/L 0-220 Lab Interpretation (test cod e = 49546-6) Normal [facility] WITH [id number] 23:59:23* Test Item Value Reference Range Interpretation [...] 34.8 g/dL 31.2-35.0 RDW-SD (test code = 83152-9) 41.1 fL 38.5-51.6 RDW-CV (test code = 788-0) 11.8 % 12.1-15.4 L PLT (test code = 777-3) See_Comment [Automated messa ge] The system which generated this result transmitted reference range: 150 - 328 10*3/?L. The reference range was not used to interpret this result as normal/abnormal. MPV (test code = 64095-9) 9.6 fL 9.8-13.0 L NRBC/100 WBC (test code = 8123201727) See_Comment [Automated [employer] ssage] The system which generated this result transmitted reference range: 0.0 - 10.0 /100 WBCs. The reference range was not used to interpret this result as normal/abnormal. NRBC x10^3 (test code = 2468225620) See_Comment [Automated messa ge] The system which generated this result transmitted reference range: 10*3/?L. The reference range was not used to interpret this result as normal/abnormal. GRAN MAT (NEUT) % (test code = 770-8) 61.9 % IMM GRAN % (test code = 3452293301) 0.30 % LYMPH % (test code = 736-9) 28.5 % MONO % (test code = 5905-5) 8.0 % EOS % (test code = 713-8) 0.6 % BASO % (test code = 706-2) 0.7 % GRAN MAT x10^3(ANC) (test code = 4141020013) 6.38 10*3/uL 1.99-6.95 IMM GRAN x10^3 (test code = 6352565468) 0.03 10*3/uL 0.00-0.06 LYMPH x10^3 (test code = 731-0) 2.94 10*3/uL 1.09-3.23 MONO x10^3 (test code = 742-7) 0.82 10*3/uL 0.36-1.02 EOS x10^3 (test code = 711-2) 0.06 10*3/uL 0.06-0.53 BASO x10^3 (test code = 704-7) 0.07 10*3/uL 0.01-0.09 Lab Interpretation (test code = 78241-0) Abnormal [facility] Notes Date/Time Note Provider Source [facility]2024-08-16 00:00:00 [facility]2024-07-02 00:00:00 [facility]2024-06-04 00:00:00 [facility]"
--- NOTE | 2024-07-28 13:11 | RAD REPORT ---
EXAM: Chest Single View HISTORY: 54 years Male PAIN COMPARISON: 07/31/2023 FINDINGS: LUNGS/PLEURA: The lungs are clear. No pleural effusions or pneumothorax. No pulmonary edema. CARDIAC/MEDIASTINUM: The cardiac silhouette is within normal limits. UPPER ABDOMEN: No significant abnormality. BONES: No acute abnormality. LINES/TUBES/OTHER: N/A IMPRESSION: No evidence of acute cardiopulmonary disease. No significant change from prior.
[2024-07-28 13:38] LABS: Absolute Basophils 0.1 K/uL (0-0.5); Absolute Eosinophils 0.1 K/uL (0-0.5); Absolute Lymphocytes (CBC) 2.1 K/uL (0.7-4.9); Absolute Monocytes 1.1 K/uL (0.1-1.3); Absolute Neutrophil 7.7 K/uL (1.8-8.0); Basophils % 1.3 % (0-1.3); Eosinophils % 1.2 % (0-4.4); Hematocrit 44.3 % (39.6-49.0); Hemoglobin 14.8 g/dL (13.6-17.9); Lymphocytes % 18.4 % (15.3-44.8); MCH 27.6 pg (27.0-35.0); MCHC 33.3 g/dL (32.0-36.0); MCV 82.7 fL (80-100); MPV 7.3 fL (7.6-11.3); Monocytes % 10.1 % (3.3-12.3); Platelets 275 thou/uL (152-406); RBC Red Blood Cell Count 5.36 M/uL (4.33-5.43); Red Cell Distribution Width 16.9 % (12.1-15.2)
[2024-07-28 13:57] LABS: Anion Gap 8.3 mEq/L (5.0-15.0); Magnesium 1.9 mg/dL (1.6-2.4); Potassium 4.3 mEq/L (3.5-5.1); Troponin High Sensitivity 4.2 pg/mL (<58.9)
[2024-07-28 14:09] LABS: Protime INR 0.96
--- NOTE | 2024-07-28 14:34 | RAD REPORT ---
EXAM: Lower Ext Angio HISTORY: s/p stent, LT leg pain COMPARISON: 07/26/2024 TECHNIQUE: Multiple contiguous axial images were obtained a CTA of the left lower with contrast. Sagi ttal and coronal 3-D MIP reformats were performed. FINDINGS: Patent left common femoral artery. Patent left SFA stent. The remaining left SFA is patent as well. A gain noted is a severe stenosis at the origin of the profunda femoris which may be secondary to location of the SFA stent or predate presence of the stent. The popliteal artery is patent. The peron eal artery is patent to about the level of the ankle. It is not opacified beyond this. This could be due to outrunning of the contrast bolus versus occlusion.. The anterior tibial artery is insuffici ently opacified and/or occluded at its mid and distal portions. The posterior tibial artery is also insufficiently opacified and/or occluded in its mid and distal portions.. IMPRESSION: Patent left SFA stent. 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 The anterior tibial and posterior tibial arteries are not visualized at about the level of the mid di aphysis and beyond. The peroneal artery is not well seen beyond the ankle and may be occluded versus outrunning of the contrast bolus.
--- NOTE | 2024-07-28 15:07 | EDPHYS ---
Physician Documentation [facility] Name: Ubaldo Waldron Age: 54 yrs Sex: Male : 1970 Arrival Date: 07/28/2024 Time: 12:04 Bed DX4 Private MD: ED Physician Zoya Gonzales HPI: 07/28 13:16 This 54 yrs old Male presents to ER via Ambulatory with complaints of Foot gb1 Pain - left. 13:16 Mr. Waldron is a 54-year-old male with a history of congestive heart failure and gb1 hypertension who had a stent placed in his left femoral artery by Dr. Byrne on last week. Patient states that his left foot feels like [id number]. He came to the emergency department on Sunday with similar symptoms and got some imaging and was told everything was normal to follow-up with his vascular surgeon. Patient still has worsening pain and more numbness of the left foot.. Historical: - Allergies: 12:32 NKA; ap3 - PMHx: 12:32 Congestive heart failure; Hypertensive disorder; ap3 - PSHx: 12:32 hernia; stent in left leg; ap3 - Immunization history:: Client reports receiving the 2nd dose of the Covid vaccine, Flu vaccine is not up to date. - Infectious Disease History:: Denies. - Social history:: Smoking status: Patient reports the use of cigarette tobacco products, smokes one pack cigarettes per day. Patient uses alcohol, admits to "couple of beers" a day. Exam: 13:16 Constitutional: This is a well developed, well nourished patient who is awake, alert, gb1 and in no acute distress. Head/Face: Normocephalic, atraumatic. Eyes: Pupils equal round and reactive to light, extra-ocular motions intact. Lids and lashes normal. Conjunctiva and sclera are non-icteric and not injected. Cornea within normal limits. Periorbital areas with no swelling, redness, or edema. ENT: Nares patent. No nasal discharge, no septal abnormalities noted. Tympanic membranes are normal and external auditory canals are clear. Oropharynx with no redness, swelling, or masses, exudates, or evidence of obstruction, uvula midline. Mucous membranes moist. Neck: Trachea midline, no thyromegaly or masses palpated, and no cervical lymphadenopathy. Supple, full range of motion without nuchal rigidity, or vertebral point tenderness. No Meningismus. Chest/axilla: Normal chest wall appearance and motion. Nontender with no deformity. No lesions are appreciated. Cardiovascular: Regular rate and rhythm with a normal S1 and S2. No gallops, murmurs, or rubs. Normal PMI, no JVD. No pulse deficits. Respiratory: Lungs have equal breath sounds bilaterally, clear to auscultation and percussion. No rales, rhonchi or wheezes noted. No increased work of breathing, no retractions or nasal flaring. Abdomen/GI: Soft, non-tender, with normal bowel sounds. No distension or tympany. No guarding or rebound. No evidence of tenderness throughout. Back: No spinal tenderness. No costovertebral tenderness. Full range of motion. Skin: Warm, dry with normal turgor. Normal color with no rashes, no lesions, and no evidence of cellulitis. MS/ Extremity: Pulses equal, no cyanosis. Neurovascular intact. Full, normal range of motion. Neuro: Awake and alert, GCS 15, oriented to person, place, time, and situation. Cranial nerves II-XII grossly intact. Motor strength 5/5 in all extremities. Sensory grossly intact. Cerebellar exam normal. Normal gait. Vital Signs: 12:31 BP 122 / 68; Pulse 79; Resp 17; Temp 97.7(O); Pulse Ox 98% on R/A; Weight 54.43 kg; ap3 Height 5 ft. 4 in. ; Pain 8/10; 12:31 Body Mass Index 20.60 (54.43 kg, 162.56 cm) ap3 12:31 Pain Scale: Adult ap3 MDM: 12:34 Medical Screening Exam initiated gb1 15:08 Data reviewed: lab test result(s), radiologic studies, CT scan. ED course: 54-year-old gb1 male status post a left femoral stent by Dr. Elder the vascular team. I did evaluate the CTA that was performed on July 26 and compared to the CTA today and the stent looks patent. I discussed the findings with the patient's vascular surgeon of record and he also agrees that this is not an ischemic limb. Patient has good PT/DP pulses and at this time I will recommend Dr. Elder's plan to have the patient follow-up Sunday in his office in [place]. He is changing prescription from Xarelto to Plavix due to the fact that the patient cannot afford the Xarelto.. 07/28 12:45 Order name: Basic Metabolic Panel; Complete Time: 14:12 07/28 12:45 Order name: CBC with Diff; Complete Time: 14:12 07/28 12:45 Order name: Magnesium; Complete Time: 14:12 07/28 12:45 Order name: NT PRO-BNP; Complete Time: 14:12 07/28 12:45 Order name: PT-INR; Complete Time: 14:12 07/28 12:45 Order name: Troponin HS; Complete Time: 14:12 07/28 12:45 Order name: XRAY Chest (1 view); Complete Time: 14:12 07/28 12:50 Order name: Lower Ext Angio; Complete Time: 14:46 EDMS 07/28 12:45 Order name: EKG - Nurse/Tech; Complete Time: 13:44 07/28 12:45 Order name: IV Saline Lock; Complete Time: 13:34 07/28 12:45 Order name: Labs collected and sent; Complete Time: 13:34 07/28 12:45 Order name: O2 Per Protocol; Complete Time: 14:27 07/28 12:45 Order name: O2 Sat Monitoring; Complete Time: 14:27 gb Administered Medications: No medications were administered Disposition Summary: 07/28/24 15:06 Discharge Ordered Notes: Location: Home gb1 Condition: Stable gb1 Problem: an ongoing problem gb1 Symptoms: are unchanged gb1 Diagnosis - Pain in left foot gb1 Discharge Instructions: - Discharge Summary Sheet gb1 - Foot Pain gb1 Forms: - Medication Reconciliation Form gb1 - Antibiotic Education gb1 - Prescription Opioid Use gb1 - Patient Portal Instructions gb1 - Leadership Thank You Letter gb1 Signatures: Dispatcher [employer] Camryn Sotelo, RN RN ap3 Zoya Gonzales MD MD gb1 Corrections: (The following items were deleted from the chart) 12:46 12:46 Abdomen Angio+CT.RAD.BRZ ordered. EDMS EDMS
--- NOTE | 2024-07-28 15:07 | ER ---
Nurse's Notes [facility] Name: Ubaldo Waldron Age: 54 yrs Sex: Male : 1970 Arrival Date: 07/28/2024 Time: 12:04 Bed DX4 Private MD: Diagnosis: Pain in left foot Presentation: 07/28 12:31 Chief complaint: Patient states: he had a stent placed in his left leg on Sunday ap3 07/25/24, and since then his left foot has been numb. Coronavirus screen: At this time, the client does not indicate any symptoms associated with coronavirus-19. Ebola Screen: No symptoms or risks identified at this time. Initial Sepsis Screen: Does the patient meet any 2 criteria? No. Patient's initial sepsis screen is negative. Does the patient have a suspected source of infection? No. Patient's initial sepsis screen is negative. Risk Assessment: Do you want to hurt yourself or someone else? Patient reports no desire to harm self or others. Onset of symptoms was July 25, 2024. 12:31 Method Of Arrival: Ambulatory ap3 12:31 Acuity: FRANCESCO 3 ap3 Triage Assessment: 12:33 General: Appears in no apparent distress. Behavior is calm, cooperative, appropriate ap3 for age. Pain: Complains of pain in left foot Pain currently is 8 out of 10 on a pain scale. Neuro: Level of Consciousness is awake, alert, obeys commands, Oriented to person, place, time, situation, Appropriate for age. Neuro: Reports numbness in left foot. Cardiovascular: Patient's skin is warm and dry. Respiratory: Airway is patent Respiratory effort is even, unlabored, Respiratory pattern is regular, symmetrical. Historical: - Allergies: 12:32 NKA; ap3 - PMHx: 12:32 Congestive heart failure; Hypertensive disorder; ap3 - PSHx: 12:32 hernia; stent in left leg; ap3 - Immunization history:: Client reports receiving the 2nd dose of the Covid vaccine, Flu vaccine is not up to date. - Infectious Disease History:: Denies. - Social history:: Smoking status: Patient reports the use of cigarette tobacco products, smokes one pack cigarettes per day. Patient uses alcohol, admits to "couple of beers" a day. Screenin:33 Abuse screen: Denies threats or abuse. Nutritional screening: No deficits noted. ap3 Tuberculosis screening: No symptoms or risk factors identified. 15:17 [facility] ED Fall Risk Assessment (Adult) History of falling in the last 3 months, ap3 including since admission No falls in past 3 months (0 pts) Confusion or Disorientation No (0 pts) Intoxicated or Sedated No (0 pts) Impaired Gait Yes (1 pt) Mobility Assist Device Used No (0 pt) Altered Elimination No (0 pt) Score/Fall Risk Level 0 - 2 = Low Risk Oriented to surroundings, Maintained a safe environment, Educated pt \\T\\ family on fall prevention, incl call for assistance when getting out of bed, Assessed \\T\\ reinforced patient's understanding of fall precautions, Hourly rounding (assess needs \\T\\ fall precautionary measures) done, Used ambulatory aids as needed (educated on \\T\\ assisted with). Vital Signs: 12:31 BP 122 / 68; Pulse 79; Resp 17; Temp 97.7(O); Pulse Ox 98% on R/A; Weight 54.43 kg; ap3 Height 5 ft. 4 in. ; Pain 8/10; 12:31 Body Mass Index 20.60 (54.43 kg, 162.56 cm) ap3 12:31 Pain Scale: Adult ap3 ED Course: 12:06 Patient arrived in ED. im 12:07 Silas Zuniga DO is Attending Physician. ms3 12:19 Attending Physician role handed off by Silas Zuniga DO gb1 12:19 Zoya Gonzales MD is Attending Physician. gb1 12:32 Triage completed. ap3 12:33 Arm band placed on left wrist. ap3 13:08 XRAY Chest (1 view) In Process Unspecified. EDMS 13:34 Inserted saline lock: 20 gauge in right antecubital area, using aseptic technique. am7 Blood collected. Flushed with 10 mL NS. 13:43 EKG done, by ED staff, reviewed by Zoya Gonzales MD. am7 14:22 Lower Ext Angio In Process Unspecified. EDMS 15:17 No provider procedures requiring assistance completed. ap3 15:17 IV discontinued, intact, bleeding controlled, No redness/swelling at site. Pressure ap3 dressing applied. 15:18 Patient has correct armband on for positive identification. Provided Education on: ap3 discharge instructions. Administered Medications: No medications were administered Medication: 15:18 VIS not applicable for this client. ap3 Outcome: 15:06 Discharge ordered by . gb1 15:18 Discharged to home ambulatory, ap3 15:18 Condition: good 15:18 Discharge instructions given to patient, Instructed on discharge instructions, follow up and referral plans. Demonstrated understanding of instructions, follow-up care, 15:18 Patient left the ED. ap3 Signatures: Dispatcher [employer] EDCamryn Slater RN RN ap3 Silas Zuniga DO DO ms3 Cheyanne Paul Gina, MD MD gb1 Rosalina Brown am7 Corrections: (The following items were deleted from the chart) 15:17 15:17 Patient did not have IV access during this emergency room visit. ap3 ap3
[2024-07-28 15:34] VITALS: BP 122/68; TEMP 97.7; O2SAT 98
== END 2024-07-28 15:18 | disposition home or self-care (01) ==
LOC: ER 12:04
DX: M79.672 Pain in left foot (principal); I10 Essential (primary) hypertension; I50.9 Heart failure, unspecified; Z95.828 Presence of other vascular implants and grafts
CPT/HCPCS: 93005; 85025; 80048; 36415; 83735; 85610; 84484; 83880; 73706; 71045; 99284; Q9967